=== PATIENT | male | born 1940 ===

== ENCOUNTER 2017-06-20 14:12 | Inpatient (IN) | payer MEDICARE ==
[2017-06-20 14:12] VITALS: BMI 28.3
[2017-06-20 15:11] LABS: BASO # 0.1 K/uL (0.0-0.2); BASO % 0.7 % (0.0-2.0); EOS # 2.5 K/uL (0.0-0.7); EOS % 26.8 % (0.0-4.0); HEMATOCRIT 41.5 % (35.0-51.0); LYMPH # 2.3 K/uL (1.0-4.3); LYMPH % 25.1 % (20.0-40.0); MEAN CELL VOLUME 91.8 fl (80.0-94.0); MEAN CORPUSCULAR HEMOGLOBIN 31.4 pg (27.0-31.0); MEAN CORPUSCULAR HGB CONC 34.3 g/dL (33.0-37.0); MEAN PLATELET VOLUME 9.8 fl (7.2-11.7); MONO # 0.6 K/uL (0.0-0.8); MONO % 6.8 % (0.0-10.0); NEUT # 3.7 K/uL (1.8-7.0); NEUT % 40.6 % (50.0-75.0); PLATELET COUNT 156 K/uL (130-400); RED CELL DISTRIBUTION WIDTH 13.4 % (11.5-14.5); WHITE BLOOD COUNT 9.2 K/uL (4.8-10.8)
[2017-06-20 15:25] LABS: ALB/GLOB RATIO 1.3 (1.0-2.1); ALKALINE PHOSPHATASE 56 U/L (38-126); ALT/SGPT 30 U/L (21-72); AST/SGOT 29 U/L (17-59); BILIRUBIN,TOTAL 0.4 mg/dl (0.2-1.3); BLOOD UREA NITROGEN 19 mg/dl (9-20); CALCIUM 9.5 mg/dL (8.4-10.2); CARBON DIOXIDE 27 mmol/L (22-30); CHLORIDE 105 mmol/L (98-107); GFR AFRICAN-AMERICAN > 60; GLUCOSE,RANDOM 133 mg/dL (75-110); POTASSIUM 3.8 MMOL/L (3.6-5.0); SODIUM 144 mmol/l (132-148); TOTAL PROTEIN 7.4 G/DL (6.3-8.2)
[2017-06-20 16:10] LABS: EOSINOPHIL 25 % (0-7); NEUTROPHIL 37 % (42-75); TOTAL CELLS COUNTED 100
--- NOTE | 2017-06-20 16:27 | ED PDOC ---
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 denies: Nausea, Diaphoresis, Syncope Modifying Factors: None Exacerbating Factors: None Alleviating Factors: None Additional Complaint(s): 76yo male hx CAD s/p stent to RCA march [address] Baer, (primary cardio Dr Fagan) presents c/o dyspnea, chest discomfort, weakness/ dizziness for last 2 days intermittently. Denies cough, fever. Past Medical History Reviewed: Historical Data, Nursing Documentation, Vital Signs Vital Signs: Last Vital Signs Temp 99.0 F 06/20/17 14:20 Pulse 99 H 06/20/17 15:04 Resp 16 06/20/17 14:20 BP 124/81 06/20/17 15:04 Pulse Ox 100 06/20/17 14:20 - Medical History PMH: Arthritis (Osteoarthritis), CAD (s/p stent), Gastritis, HTN, Hypercholesterolemia, Hypothyroidism, TIA Denies: Fractures, Chronic Kidney Disease Comment Only: Mitral Valve Prolapse (REGURGITATION) - Surgical History Surgical History: Denies: Pacemaker Other surgeries: ? abdominal surgery laposcopy many years ago ?appy - Living Arrangements Living Arrangements: With Family - Social History Current smoker - smoking cessation education provided: No Alcohol: Occasional - Home Medications Home Medications: Ambulatory Orders Medication Instructions Recorded Allopurinol [Zyloprim] 1 tab PO DAILY 06/22/16 Aspirin [Ecotrin] 1 tab PO DAILY 06/22/16 Doxazosin [Cardura] 1 tab PO DAILY 06/22/16 Levothyroxine [Synthroid] 1 tab PO DAILY 06/22/16 Losartan [Cozaar] 1 tab PO DAILY 06/22/16 Lovastatin 1 tab PO DAILY 06/22/16 Metformin HCl [Glucophage] 1 tab PO BID 06/22/16 Metoprolol Succinate 1 tab PO BID 06/22/16 [id number]-[id number] Ethyl Esters [OMEGA 3] 2 cap PO BID 06/22/16 Omeprazole 1 cap PO DAILY 06/22/16 Sevelamer [Renagel] 1 tab PO BID 06/22/16 Tamsulosin [Flomax] 1 cap PO DAILY 06/22/16 Vorapaxar Sulfate [Zontivity] 1 tab PO DAILY 06/22/16 Cilostazol [Pletal] 100 mg PO BID 04/13/17 - Allergies Allergies/Adverse Reactions: Allergies Allergy/AdvReac Type Severity Reaction Status Date / Time No Known Allergies Allergy Verified 06/20/17 14:20 Review of Systems ROS Statement: Except As Marked, All Systems Reviewed And Found Negative Constitutional: Positive for: Weakness. Negative for: Fever, Chills, Weight loss ENT: Negative for: Ear Discharge, Throat Pain Cardiovascular: Positive for: Chest Pain. Negative for: Palpitations Respiratory: Positive for: Shortness of Breath, SOB with Exertion. Negative for : Cough, Sputum Gastrointestinal: Negative for: Nausea, Vomiting Genitourinary Male: Negative for: Dysuria, Frequency Musculoskeletal: Negative for: Neck Pain, Shoulder Pain Skin: Negative for: Rash, Lesions, Jaundice Neurological: Positive for: Dizziness. Negative for: Weakness, Numbness Psych: Negative for: Anxiety Physical Exam - Reviewed Nursing Documentation Reviewed: Yes Vital Signs Reviewed: Yes - Physical Exam Appears: Positive for: Well, Non-toxic, No Acute Distress Head Exam: Positive for: ATRAUMATIC, NORMAL INSPECTION, NORMOCEPHALIC Skin: Positive for: Normal Color, Warm, DRY Eye Exam: Positive for: EOMI, Normal appearance, PERRL ENT: Positive for: Normal ENT Inspection Neck: Positive for: Normal, Painless ROM Cardiovascular/Chest: Positive for: Regular Rate, Rhythm Respiratory: Positive for: CNT, Normal Breath Sounds Gastrointestinal/Abdominal: Positive for: Bowel Sounds, Soft. Negative for: Tenderness Back: Positive for: Normal Inspection Extremity: Positive for: Normal ROM Neurologic/Psych: Positive for: Alert, Oriented. 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
[2017-06-20] MEDS ORDERED: Omega-3-Acid Ethyl Esters 1 GM Cap PO SCH (17:30)
--- NOTE | 2017-06-20 17:50 | CP.PCM.HP ---
History of Present Illness - History of Present Illness History of Present Illness: CC: Chest pain This is a 76-year-old male with past medical history of coronary artery disease status post RCA stent in March [address] Baer, also with a history of hypertension, BPH, hyperlipidemia, hypothyroidism, hypertensive heart disease, MVR, osteoarthritis, history of SVT, obesity, who presents to the emergency department this afternoon complaining of dyspnea on exertion, lightheadedness, and moderate chest discomfort. These complaints of been present for the last 2 days, worse today. This chest discomfort is described as a pressure, substernal , nonradiating, not associated with nausea, diaphoresis, or syncope. In the emergency department, the patient's vitals are stable. His blood pressure was initially elevated at 160/100 but improved to 124/81 currently. Laboratory results including CBC, coags, CMP, troponin, are unremarkable on admission. EKG shows ST and T wave abnormalities concerning for anterolateral ischemia. The patients chest pain resolved spontaneously and his shortness of breath has improved. CXR negative per radiologist. Patient is to be placed on observation on the telemetry floor with Dr. Baer on consultation for cardiology. Patient denies fevers, chills, nausea, vomiting, diarrhea, headache. Rest of ROS as below. All of the patient's questions were answered at the bedside. Present on Admission - Present on Admission Any Indicators Present on Admission: No Review of Systems - Hematologic/Lymphatic Additional comments: GENERAL/CONSTITUTIONAL: The patient denies fever, fatigue, weakness, weight gain or weight loss. HEAD, EYES, EARS, NOSE AND THROAT: Eyes - The patient denies pain, redness, loss of vision, double or blurred vision, flashing lights or spots, dryness, Ears, nose, mouth and throat. The patient denies ringing in the ears, loss of hearing, nosebleeds, loss of sense of smell, dry sinuses, sinusitis, post nasal drip, CARDIOVASCULAR: See HPI- denies palpitations RESPIRATORY: Progressively worsening shortness of breath on exertion. The patient denies chronic dry cough, coughing up blood, coughing up mucus, wheezing. GASTROINTESTINAL: The patient denies decreased appetite, nausea, vomiting, vomiting blood or coffee ground material, heartburn, regurgitation, diarrhea, constipation, gas, blood in the stools, black tarry stools. GENITOURINARY: The patient denies difficult urination, pain or burning with urination, blood in the urine, frequency, or urgency MUSCULOSKELETAL: The patient denies arm, buttock, thigh or calf cramps. No joint or muscle pain. No muscle weakness or tenderness. No joint swelling, neck pain, back pain. SKIN: The patient denies easy bruising, skin redness, skin rash, hives, sensitivity to sun exposure, tightness, nodules or bumps, hair loss, color changes in the hands or feet with cold. NEUROLOGIC: The patient denies headache, dizziness, fainting, muscle spasm, loss of consciousness, sensitivity or pain in the hands and feet or memory loss. PSYCHIATRIC: The patient denies anxiety, depression, or thoughts of suicide. ENDOCRINE: The patient denies intolerance to hot or cold temperature, flushing, fingernail changes, increased thirst, increased salt intake or decreased sexual desire. HEMATOLOGIC/LYMPHATIC: The patient denies anemia, bleeding tendency or clotting tendency. ALLERGIC/IMMUNOLOGIC: The patient denies rhinitis, asthma, skin sensitivity, latex allergies or sensitivity. Past Patient History - Past Medical History & Family History Past Medical History?: Yes - Past Social History Alcohol: Occasional - CARDIAC Hx Hypercholesterolemia: Yes Hx Hypertension: Yes Hx Mitral Valve Prolapse: (REGURGITATION) Hx Pacemaker: No - PULMONARY Hx Respiratory Disorders: No - NEUROLOGICAL Hx Transient Ischemic Attacks (TIA): Yes - HEENT Hx HEENT Problems: Yes Hx Cataracts: Yes - RENAL Hx Chronic Kidney Disease: No - ENDOCRINE/METABOLIC Hx Hypothyroidism: Yes - HEMATOLOGICAL/ONCOLOGICAL Hx Blood Transfusions: No - INTEGUMENTARY Hx Dermatological Problems: No - MUSCULOSKELETAL/RHEUMATOLOGICAL Hx Arthritis: Yes (Osteoarthritis) Hx Fractures: No - GASTROINTESTINAL Hx Gastritis: Yes - GENITOURINARY/GYNECOLOGICAL Hx Genitourinary Disorders: Yes Hx Prostate Problems: Yes - PSYCHIATRIC Hx Emotional Abuse: No Hx Physical Abuse: No Hx Substance Use: No - SURGICAL HISTORY Hx Surgeries: Yes Hx Cataract Extraction: Yes Other/Comment: appendicitis?? - ANESTHESIA Hx Anesthesia: Yes Hx Anesthesia Reactions: No Hx Malignant Hyperthermia: No Meds Allergies/Adverse Reactions: Allergies Allergy/AdvReac Type Severity Reaction Status Date / Time No Known Allergies Allergy Verified 06/20/17 14:20 Physical Exam - Additional Findings Additional findings: Physical exam: Constitutional- male in no apparent distress, cooperative, awake, alert. Head- NCAT, PERRL Eye- PERRL, normal accommodation ENT- normal exam, MMM. Neck- normal inspection, supple, no JVD Respiratory- CTAB, no wheezes rales rhonchi Cardiovascular- RRR, +S1, +S2 no MRG GI/Abdominal- normal bowel sounds, soft Skin- warm, dry Extremities Exam- normal capillary refill, normal inspection Neurological Exam- alert, stable gait Psych- normal mood, normal affect Results - Vital Signs Recent Vital Signs: Last Vital Signs Temp 99.0 F 06/20/17 17:42 Pulse 85 06/20/17 17:42 Resp 20 06/20/17 17:42 BP 124/96 H 06/20/17 17:42 Pulse Ox 97 06/20/17 17:42 - Labs Result Diagrams: 06/20/17 15:05 06/20/17 15:05 Labs: Laboratory Results - last 24 hr 06/20/17 06/20/17 15:05 15:05 WBC 9.2 RBC 4.52 Hgb 14.2 Hct 41.5 MCV 91.8 MCH 31.4 H MCHC 34.3 RDW 13.4 Plt Count 156 MPV 9.8 Neut % (Auto) 40.6 L Lymph % (Auto) 25.1 Lucas % (Auto) 6.8 Eos % (Auto) 26.8 H Baso % (Auto) 0.7 Neut # 3.7 Lymph # 2.3 Lucas # 0.6 Eos # 2.5 H Baso # 0.1 Neutrophils % (Manual) 37 L Lymphocytes % (Manual) 30 Monocytes % (Manual) 8 Eosinophils % (Manual) 25 H Platelet Estimate Normal RBC Morphology Normal Sodium 144 Potassium 3.8 Chloride 105 Carbon Dioxide 27 Anion Gap 16 BUN 19 Creatinine 1.3 Est GFR ( Amer) > 60 Est GFR (Non-Af Amer) 54 Random Glucose 133 H Calcium 9.5 Total Bilirubin 0.4 AST 29 ALT 30 Alkaline Phosphatase 56 Troponin I < 0.0120 NT-Pro-B Natriuret Pep 195 Total Protein 7.4 Albumin 4.2 Globulin 3.2 Albumin/Globulin Ratio 1.3 - Impressions Impression: CXR: No active disease EKG: Borderline sinus tachycardia at rate of 100, ST and T wave abnormalities consistent with anterolateral ischemia, no ST elevations Assessment & Plan - Assessment and Plan (Free Text) Plan: This is a 76-year-old male with past medical history of coronary artery disease status post RCA stent in March [address] Baer, also with a history of hypertension, BPH, hyperlipidemia, hypothyroidism, hypertensive heart disease, MVR, osteoarthritis, history of SVT, obesity, who presents to the emergency department this afternoon complaining of dyspnea on exertion, lightheadedness, and moderate chest discomfort, now being put on observation to telemetry floor to r/o ACS and for cardiac workup. ASSESSMENT - Chest pain with recent stent placement in the RCA in 03/2017, r/o restenosis, ACS, as there is ischemic changes on EKG - Hypertension - Hyperlipidemia - Hypothyroidism - Hypertensive heart disease - History of MVR - History of SVT - Osteoarthritis - Obesity PLAN - observation on cardiac telemetry floor - Consultation with Dr. Baer appreciated- patient may need cath to reevaluate stent - Cycle troponins - Continue ASA 81 mg po HS and Plavix 75 mg po daily - Cozaar 50 mg po daily for htn control - Continue Ranitidine 150 mg po daily - Continue Ranolazine 500 mg po q 12 hours with Nitrostat 0.4 mg SL q5m PRN for chest pain - Start Lipitor 40 mg po HS along with [id number] - Continue Flomax 0.4 mg po daily and Doxazosin 4 mg po HS for BPH - Continue Sevelamer 800 mg po daily - Estimated LOS
[2017-06-20 18:11] LABS: CHOLESTEROL 151 mg/dL (0-199)
--- NOTE | 2017-06-20 18:36 | CP.PCM.CON ---
<Asa Lyema - Last Filed: 06/20/17 19:06> History of Present Illness - History of Present Illness History of Present Illness: Consult note for Dr. Keyur Morrissey DO, PGY-1 Reason For Consult: Chest Pain HPI: 76 Greek speaking M w/ pertinent medical history of HTN, HLD, and CAD s/p RCA stent, presents with 2 weeks duration of tight, pressure-like, non-radiating, sternal chest pain of 5/10 severity, which is not made better or worse with any intervention, and which has been constant for the past four days and is associated with sob and dizziness. Patient states that right after his stent placement, he felt much better, but that he started having PINON-like symptoms within one week, which dissipated. His current episode started two weeks ago, and at first was intermittent, then became constant and was associated with sob but no diaphoresis or any other symptoms, which is what brought him to the ER. Upon arrival to the ER, patient's symptoms resolved. Pt does state that he gets dizzy when he takes deep breaths at present, however , pt denies any current f/ch/cp/sob/n/v/d/dysuria/frequency/urgency/hematuria/ hematochezia/hematemesis PSHx: Cataract surgery, s/p RCA Stent PMHx: HTN, BPH, hyperlipidemia, hypothyroidism, MVR, osteoarthritis, SVTs, obesity, CAD All: NKDA SocHx: Social drinker; denies smoking, illicits Hosp: Mar 2017 for RCA Stent placement FamHx: HTN Meds: Allopurinol, Lipitor, Plavix, Doxazosin, Lasix, Ranexa ROS: Constitutional: pt denies fever, chills, generalized weakness ENT: pt denies dysphagia, otalgia, hearing deficit, rhinorrhea Eyes: pt denies sudden loss of vision, diplopia, blurred vision MSK: pt denies muscle stiffness, joint pain, extremity cramping Cardio: +see hpi Pulm: +see hpi GI: pt denies loss of appetite, abdominal pain, constipation, melena, n/v/d : pt denies burning on urination, urinary frequency, hematuria, urinary urgency Neuro: pt denies paresis, paresthesia, dizziness, stiles, numbness, tingling Derm: pt denies skin changes, lesions, nail changes Endo: pt denies intolerance to heat/cold, diaphoresis, night sweats, polydipsia Psych: pt denies anxiety, depression, mood changes Past Patient History - Past Medical History & Family History Past Medical History?: Yes - Past Social History Alcohol: Occasional - CARDIAC Hx Hypercholesterolemia: Yes Hx Hypertension: Yes Hx Mitral Valve Prolapse: (REGURGITATION) Hx Pacemaker: No - PULMONARY Hx Respiratory Disorders: No - NEUROLOGICAL Hx Transient Ischemic Attacks (TIA): Yes - HEENT Hx HEENT Problems: Yes Hx Cataracts: Yes - RENAL Hx Chronic Kidney Disease: No - ENDOCRINE/METABOLIC Hx Hypothyroidism: Yes - HEMATOLOGICAL/ONCOLOGICAL Hx Blood Transfusions: No - INTEGUMENTARY Hx Dermatological Problems: No - MUSCULOSKELETAL/RHEUMATOLOGICAL Hx Arthritis: Yes (Osteoarthritis) Hx Fractures: No - GASTROINTESTINAL Hx Gastritis: Yes - GENITOURINARY/GYNECOLOGICAL Hx Genitourinary Disorders: Yes Hx Prostate Problems: Yes - PSYCHIATRIC Hx Emotional Abuse: No Hx Physical Abuse: No Hx Substance Use: No - SURGICAL HISTORY Hx Surgeries: Yes Hx Cataract Extraction: Yes Other/Comment: appendicitis?? - ANESTHESIA Hx Anesthesia: Yes Hx Anesthesia Reactions: No Hx Malignant Hyperthermia: No Meds Allergies/Adverse Reactions: Allergies Allergy/AdvReac Type Severity Reaction Status Date / Time No Known Allergies Allergy Verified 06/20/17 14:20 - Medications Medications: Current Medications Allopurinol (Zyloprim) 100 mg PO DAILY [facility] Aspirin (Ecotrin) 81 mg PO HS MORE Atorvastatin Calcium (Lipitor) 40 mg PO HS MORE Calcitriol (Rocaltrol) 0.25 mcg PO MWF [facility] Clopidogrel Bisulfate (Plavix) 75 mg PO DAILY MORE Doxazosin Mesylate (Cardura) 4 mg PO HS MORE Famotidine (Pepcid) 20 mg PO BID MORE Furosemide (Lasix) 20 mg PO DAILY [facility] Heparin Sodium (Porcine) (Heparin) 5,000 units SC Q12 MORE PRN Reason: Protocol Home Med (Ranitidine Hcl [Zantac]) 150 mg PO DAILY MORE Home Med (Ranolazine [Ranexa]) 500 mg PO Q12H [facility] Losartan Potassium (Cozaar) 50 mg PO DAILY [facility] Nitroglycerin (Nitrostat Sl Tab) 0.4 mg SL Q5M PRN PRN Reason: Pain, Mild (1-3) [id number] Ethyl Esters (Lovaza) 2 gm PO Q12H MORE Sevelamer HCl (Renagel) 800 mg PO DAILY MORE Tamsulosin HCl (Flomax) 0.4 mg PO DAILY MORE Physical Exam - Additional Findings Additional findings: Phys Exam: VS as below Constitutional: a&o x 4, nad, wolof Head/Neck: neck supple, no jvd, trachea midline, carotid midline, no cervical /head mass Eyes: jayshree, nonicteric sclera, eom intact ENT: auditory acuity grossly intact, throat not congested, no nasal deformity Cardio: rrr, no m/r/g, no carotid bruit, nml s1, s2 Pulm: no accessory muscle use, equal nml breath sounds bilaterally, ctab Abd: s/nt/nd, nbs x 4 q, no palpable masses Derm: no rashes, no ulcers, no lesions Extr: no edema, no cyanosis, no calf tenderness, no lesions, no varicosities Neuro: cn II-XII grossly intact, ue and le 5/5 muscle strength bilaterally, no los ue, le bilaterally and core Results - Vital Signs Recent Vital Signs: Last Vital Signs Temp 99.0 F 06/20/17 17:42 Pulse 85 06/20/17 17:42 Resp 20 06/20/17 17:42 BP 124/96 H 06/20/17 17:42 Pulse Ox 97 06/20/17 17:42 - Labs Result Diagrams: 06/20/17 15:05 06/20/17 15:05 Labs: Laboratory Results - last 24 hr 06/20/17 06/20/17 06/20/17 15:05 15:05 17:56 WBC 9.2 RBC 4.52 Hgb 14.2 Hct 41.5 MCV 91.8 MCH 31.4 H MCHC 34.3 RDW 13.4 Plt Count 156 MPV 9.8 Neut % (Auto) 40.6 L Lymph % (Auto) 25.1 [place] % (Auto) 6.8 Eos % (Auto) 26.8 H Baso % (Auto) 0.7 Neut # 3.7 Lymph # 2.3 [place] # 0.6 Eos # 2.5 H Baso # 0.1 Neutrophils % (Manual) 37 L Lymphocytes % (Manual) 30 Monocytes % (Manual) 8 Eosinophils % (Manual) 25 H Platelet Estimate Normal RBC Morphology Normal Sodium 144 Potassium 3.8 Chloride 105 Carbon Dioxide 27 Anion Gap 16 BUN 19 Creatinine 1.3 Est GFR ( Amer) > 60 Est GFR (Non-Af Amer) 54 Random Glucose 133 H Calcium 9.5 Total Bilirubin 0.4 AST 29 ALT 30 Alkaline Phosphatase 56 Troponin I < 0.0120 NT-Pro-B Natriuret Pep 195 Total Protein 7.4 Albumin 4.2 Globulin 3.2 Albumin/Globulin Ratio 1.3 Triglycerides 232 H D Cholesterol 151 LDL Cholesterol Direct 78 HDL Cholesterol 28 L Assessment & Plan - Assessment and Plan (Free Text) Assessment: A/P 76 M with significant cardiac hx including s/p RCA stent Mar 2017 p/w CP and associated SOB and dizziness. Symptoms currently resolved, tropes X 1 negative , but initial EKG showed ischemia in V1-V3. Acute Coronary Syndrome - Heparin drip - No nitro drip 2/2 blood pressure (124/96) - NPO After Midnight - Patient will be taken to [facility] with Dr. Baer Chronic Medical Issues - As per primary team Thank you for this interesting consult Asa Flowers DO, PGY-1, d/w Dr. Baer <Aaron Baer - Last Filed: 06/21/17 15:41> Meds - Medications Medications: Current Medications Allopurinol (Zyloprim) 100 mg PO DAILY [facility] Last Admin: 06/21/17 09:36 Dose: Not Given Aspirin (Ecotrin) 81 mg PO [facility] Last Admin: 06/20/17 22:15 Dose: 81 mg Atorvastatin Calcium (Lipitor) 40 mg PO [facility] Last Admin: 06/20/17 22:29 Dose: 40 mg Calcitriol (Rocaltrol) 0.25 mcg PO [facility] [place] Clopidogrel Bisulfate (Plavix) 75 mg PO DAILY [facility] Last Admin: 06/21/17 10:03 Dose: 75 mg Doxazosin Mesylate (Cardura) 4 mg PO [facility] Last Admin: 06/20/17 23:55 Dose: 4 mg Famotidine (Pepcid) 20 mg PO BID [facility] Last Admin: 06/21/17 09:35 Dose: Not Given Furosemide (Lasix) 20 mg PO DAILY [facility] Last Admin: 06/21/17 09:35 Dose: Not Given Home Med (Ranitidine Hcl [Zantac]) 150 mg PO DAILY [facility] Home Med (Ranolazine [Ranexa]) 500 mg PO Q12H [facility] Last Admin: 06/21/17 09:36 Dose: Not Given Heparin Sodium/Sodium Chloride (Heparin 48354 Units/250ml 1/2 Normal Saline) 25 ,000 units in 250 mls @ 10.417 mls/hr IV .Q24H MORE PRN Reason: Protocol Last Titration: 06/21/17 06:39 Dose: 7.4 mls/hr Losartan Potassium (Cozaar) 50 mg PO DAILY [facility] Last Admin: 06/21/17 09:34 Dose: Not Given Nitroglycerin (Nitrostat Sl Tab) 0.4 mg SL Q5M PRN PRN Reason: Pain, Mild (1-3) Last Admin: 06/20/17 22:37 Dose: 0.4 mg Xpvxh-[id number] Ethyl Esters (Lovaza) 2 gm PO Q12 [facility] Last Admin: 06/21/17 09:35 Dose: Not Given Sevelamer HCl (Renagel) 800 mg PO DAILY [facility] Last Admin: 06/21/17 09:36 Dose: Not Given Tamsulosin HCl (Flomax) 0.4 mg PO DAILY [facility] Last Admin: 06/21/17 09:35 Dose: Not Given Results - Vital Signs Recent Vital Signs: Last Vital Signs Temp 97.7 F 06/21/17 13:00 Pulse 69 06/21/17 13:00 Resp 18 06/21/17 13:00 BP 139/90 06/21/17 13:00 Pulse Ox 98 06/21/17 13:00 - Labs Result Diagrams: 06/20/17 15:05 06/20/17 15:05 Labs: Laboratory Results - last 24 hr 06/20/17 06/20/17 06/20/17 15:05 15:05 17:56 Neutrophils % (Manual) 37 L Lymphocytes % (Manual) 30 Monocytes % (Manual) 8 Eosinophils % (Manual) 25 H Platelet Estimate Normal RBC Morphology Normal PT INR APTT POC Glucose (mg/dL) Troponin I < 0.0120 NT-Pro-B Natriuret Pep 195 Triglycerides 232 H D Cholesterol 151 LDL Cholesterol Direct 78 HDL Cholesterol 28 L 06/20/17 06/20/17 06/21/17 21:12 22:32 00:22 Neutrophils % (Manual) Lymphocytes % (Manual) Monocytes % (Manual) Eosinophils % (Manual) Platelet Estimate RBC Morphology PT 11.1 INR 1.0 APTT 34.3 POC Glucose (mg/dL) 107 Troponin I < 0.0120 NT-Pro-B Natriuret Pep Triglycerides Cholesterol LDL Cholesterol Direct HDL Cholesterol 06/21/17 06/21/17 06/21/17 04:15 04:47 10:45 Neutrophils % (Manual) Lymphocytes % (Manual) Monocytes % (Manual) Eosinophils % (Manual) Platelet Estimate RBC Morphology PT 11.8 INR 1.0 APTT 155.9 H* D 80.1 H D POC Glucose (mg/dL) 84 Troponin I NT-Pro-B Natriuret Pep Triglycerides Cholesterol LDL Cholesterol Direct HDL Cholesterol 06/21/17 11:13 Neutrophils % (Manual) Lymphocytes % (Manual) Monocytes % (Manual) Eosinophils % (Manual) Platelet Estimate RBC Morphology PT INR APTT POC Glucose (mg/dL) 94 Troponin I NT-Pro-B Natriuret Pep Triglycerides Cholesterol LDL Cholesterol Direct HDL Cholesterol Attending/Attestation - Attestation I have personally seen and examined this patient.: Yes I have fully participated in the care of the patient.: Yes I have reviewed all pertinent clinical information: Yes Notes (Text): 06/21/17 15:41 76 year old male with hx of HTN, DM, hyperlipidemia presenting with c/o cp and SOB x 2 weeks sx and EKG c/w ischemic heart disease keep pt on IV heparin plan for LHCx cont GDMT for CAD
[2017-06-20] MEDS ORDERED: Heparin25000 units/250ml 1/2NS 25,000 UNITS/250 ML BAG IV SCH (19:30)
[2017-06-20 21:23] LABS: PARTIAL THROMBOPLASTIN TIME 34.3 Seconds (25.6-37.1)
[2017-06-21 05:04] LABS: PARTIAL THROMBOPLASTIN TIME 155.9 Seconds (25.6-37.1)
[2017-06-21] MEDS ORDERED: Influenza Vaccine 18yr & older 0.5 ML/45 MCG SYR IM ONE (06:00)
--- NOTE | 2017-06-21 06:23 | CP.PCM.PN ---
Subjective - Date & Time of Evaluation Date of Evaluation: 06/21/17 Time of Evaluation: 06:21 - Subjective Subjective: Pt s/e bedside. States he is doing well, no sob, no cp. He did however have one bout of CP last night before bed, he took 1 SL nitroglycerine and CP resolved. No other complaints at this time - no f/ch/cp/sob/n/v/d. Objective - Vital Signs/Intake and Output Vital Signs (last 24 hours): Temp Pulse Resp BP Pulse Ox 97.6 F 64 20 143/88 95 06/21/17 05:49 06/21/17 05:49 06/21/17 05:49 06/21/17 05:49 06/21/17 05:49 - Medications Medications: Current Medications Allopurinol (Zyloprim) 100 mg PO DAILY [facility] Aspirin (Ecotrin) 81 mg PO HS [facility]CLUD[facility] Last Admin: 06/20/17 22:15 Dose: 81 mg Atorvastatin Calcium (Lipitor) 40 mg PO HS [facility] Last Admin: 06/20/17 22:29 Dose: 40 mg Calcitriol (Rocaltrol) 0.25 mcg PO MWF COUNT [facility]CLUD[facility] Clopidogrel Bisulfate (Plavix) 75 mg PO DAILY MORE Doxazosin Mesylate (Cardura) 4 mg PO HS [facility] Last Admin: 06/20/17 23:55 Dose: 4 mg Famotidine (Pepcid) 20 mg PO BID MORE Furosemide (Lasix) 20 mg PO DAILY COUNT [facility]CLUD[facility] Home Med (Ranitidine Hcl [Zantac]) 150 mg PO DAILY COUNT [facility]CLUD[facility] Home Med (Ranolazine [Ranexa]) 500 mg PO Q12H COUNT [facility] Last Admin: 06/20/17 22:28 Dose: 500 mg Heparin Sodium/Sodium Chloride (Heparin 18432 Units/250ml 1/2 Normal Saline) 25 ,000 units in 250 mls @ 10.417 mls/hr IV .Q24H MORE PRN Reason: Protocol Last Admin: 06/20/17 21:58 Dose: 10.4 mls/hr Losartan Potassium (Cozaar) 50 mg PO DAILY [facility] Nitroglycerin (Nitrostat Sl Tab) 0.4 mg SL Q5M PRN PRN Reason: Pain, Mild (1-3) Last Admin: 06/20/17 22:37 Dose: 0.4 mg Bzftk-6-Pgqy Ethyl Esters (Lovaza) 2 gm PO Q12 MORE Sevelamer HCl (Renagel) 800 mg PO DAILY MORE Tamsulosin HCl (Flomax) 0.4 mg PO DAILY MORE - Labs Labs: 06/20/17 15:05 06/20/17 15:05 PT 11.8 Seconds (9.8-13.1) 06/21/17 04:15 INR 1.0 (0.9-1.2) 06/21/17 04:15 APTT 155.9 Seconds (25.6-37.1) H* D 06/21/17 04:15 - Additional Findings Additional findings: Phys Exam: VS as below Constitutional: a&o x 4, nad, [place] Head/Neck: neck supple, no jvd, trachea midline, carotid midline, no cervical /head mass Eyes: jayshree, nonicteric sclera, eom intact ENT: auditory acuity grossly intact, throat not congested, no nasal deformity Cardio: rrr, no m/r/g, no carotid bruit, nml s1, s2 Pulm: no accessory muscle use, equal nml breath sounds bilaterally, ctab Abd: s/nt/nd, nbs x 4 q, no palpable masses Derm: no rashes, no ulcers, no lesions Extr: no edema, no cyanosis, no calf tenderness, no lesions, no varicosities Neuro: cn II-XII grossly intact, ue and le 5/5 muscle strength bilaterally, no los ue, le bilaterally and core Assessment and Plan - Assessment and Plan (Free Text) Assessment: A/P 76 M with significant cardiac hx including s/p RCA stent Mar 2017 p/w CP and associated SOB and dizziness. Symptoms currently resolved, tropes X 2 negative , but initial EKG showed ischemia in V1-V3. Acute Coronary Syndrome - Heparin drip: aPTT was elevated this AM, so per protocol, rate decreased to 7.4 - No nitro drip 2/2 blood pressure (124/96) - NPO After Midnight - Patient will be taken to [facility], [place] today with Dr. Baer - SL nitroglycerine for CP Chronic Medical Issues - As per primary team Thank you for this interesting consult Asa SDO, PGY-1, d/w Dr. Baer
--- NOTE | 2017-06-21 08:14 | CARD ---
APPROVED REPORT EKG Measurement Heart [id number] <Conclusion> Sinus rhythm with fusion complexes ST & T wave abnormality, consider anterolateral ischemia Prolonged QT Abnormal ECG
[2017-06-21] MEDS: Omega-3-Acid Ethyl Esters 1 GM Cap PO SCH ×2 (09:35→21:18)
--- NOTE | 2017-06-21 10:59 | CP.PCM.PN ---
Subjective - Date & Time of Evaluation Date of Evaluation: 06/21/17 Time of Evaluation: 10:45 - Subjective Subjective: Patient seen and examined bedside. Feeling well. Denies any chest pain or SOB. With episode of chest pain last night while lying in bed that resolved with Nitro SL. Hemodynamically stable, afebrile. Trop negative so far Patient to go for cardiac cath to [facility] today Objective - Vital Signs/Intake and Output Vital Signs (last 24 hours): Temp Pulse Resp BP Pulse Ox 97.3 F L 61 18 124/81 95 06/21/17 09:00 06/21/17 09:34 06/21/17 09:00 06/21/17 09:35 06/21/17 09:00 Intake and Output: 06/21/17 06/21/17 06:59 18:59 Intake Total 0 Balance 0 - Medications Medications: Current Medications Allopurinol (Zyloprim) 100 mg PO DAILY [facility] Last Admin: 06/21/17 09:36 Dose: Not Given Aspirin (Ecotrin) 81 mg PO [facility] Last Admin: 06/20/17 22:15 Dose: 81 mg Atorvastatin Calcium (Lipitor) 40 mg PO HS [facility] Last Admin: 06/20/17 22:29 Dose: 40 mg Calcitriol (Rocaltrol) 0.25 mcg PO [facility] Clopidogrel Bisulfate (Plavix) 75 mg PO DAILY [facility] Last Admin: 06/21/17 10:03 Dose: 75 mg Doxazosin Mesylate (Cardura) 4 mg PO [facility] Last Admin: 06/20/17 23:55 Dose: 4 mg Famotidine (Pepcid) 20 mg PO BID [facility] Last Admin: 06/21/17 09:35 Dose: Not Given Furosemide (Lasix) 20 mg PO DAILY [facility] Last Admin: 06/21/17 09:35 Dose: Not Given Home Med (Ranitidine Hcl [Zantac]) 150 mg PO DAILY [facility] Home Med (Ranolazine [Ranexa]) 500 mg PO Q12H [facility] Last Admin: 06/21/17 09:36 Dose: Not Given Heparin Sodium/Sodium Chloride (Heparin 26104 Units/250ml 1/2 Normal Saline) 25 ,000 units in 250 mls @ 10.417 mls/hr IV .Q24H [facility] PRN Reason: Protocol Last Titration: 06/21/17 06:39 Dose: 7.4 mls/hr Losartan Potassium (Cozaar) 50 mg PO DAILY [facility] Last Admin: 06/21/17 09:34 Dose: Not Given Nitroglycerin (Nitrostat Sl Tab) 0.4 mg SL Q5M PRN PRN Reason: Pain, Mild (1-3) Last Admin: 06/20/17 22:37 Dose: 0.4 mg Gdiyc-8-Pykj Ethyl Esters (Lovaza) 2 gm PO Q12 [facility] Last Admin: 06/21/17 09:35 Dose: Not Given Sevelamer HCl (Renagel) 800 mg PO DAILY [facility] Last Admin: 06/21/17 09:36 Dose: Not Given Tamsulosin HCl (Flomax) 0.4 mg PO DAILY [facility] Last Admin: 06/21/17 09:35 Dose: Not Given - Labs Labs: 06/20/17 15:05 06/20/17 15:05 PT 11.8 Seconds (9.8-13.1) 06/21/17 04:15 INR 1.0 (0.9-1.2) 06/21/17 04:15 APTT 155.9 Seconds (25.6-37.1) H* D 06/21/17 04:15 - Constitutional Appears: Non-toxic, No Acute Distress - Head Exam Head Exam: ATRAUMATIC, NORMAL INSPECTION, NORMOCEPHALIC - Eye Exam Eye Exam: EOMI, Normal appearance, PERRL Pupil Exam: NORMAL ACCOMODATION - ENT Exam ENT Exam: Mucous Membranes Moist, Normal Exam - Neck Exam Neck Exam: Full ROM, Normal Inspection - Respiratory Exam Respiratory Exam: Clear to Ausculation Bilateral, NORMAL BREATHING PATTERN. absent: Rales, Rhonchi, Wheezes - Cardiovascular Exam Cardiovascular Exam: REGULAR RHYTHM, RRR, +S1, +S2. absent: JVD - GI/Abdominal Exam GI & Abdominal Exam: Soft, Normal Bowel Sounds. absent: Distended, Guarding, Tenderness, Rebound - Rectal Exam Rectal Exam: Deferred - Extremities Exam Extremities Exam: Full ROM, Normal Capillary Refill, Normal Inspection. absent : Calf Tenderness, Pedal Edema - Back Exam Back Exam: NORMAL INSPECTION - Neurological Exam Neurological Exam: Alert, Awake, CN II-XII Intact, Oriented x3 - Psychiatric Exam Psychiatric exam: Normal Affect, Normal Mood - Skin Skin Exam: Dry, Intact, Normal Color, Warm Assessment and Plan - Assessment and Plan (Free Text) Assessment: 76-year-old male with past medical history of coronary artery disease status post RCA stent in March [address] Baer, also with a history of hypertension, BPH, hyperlipidemia, hypothyroidism, hypertensive heart disease, MVR, osteoarthritis, history of SVT, obesity, presented to the emergency department complaining of dyspnea on exertion, lightheadedness, and moderate chest discomfort. He was placed under observation in Telemetry for Chest pain r/ o ACS and cardiology was consulted. Patient to be transferred for cardiac cath today to [facility] 1. Chest pain with recent stent placement in the RCA in 03/2017 r/o restenosis, ACS, as there is ischemic changes on EKG Trop negative x [address] Baer. Patient to go for cardiac cath today Continue Statin ,ASa, plavix, ACEI , Heparin drip 2. HTN Controlled on Losartan 3.Hypertensive heart disease 4.History of MVR 5. History of SVT 6. Gout -on allopurinol 7. Osteoarthritis 8. Obesity 9. Hypothyroidism- not on treatment ? 10. Dyslipidemia- on Statin 11. DVt prophylaxis- on Heparin drip
[2017-06-22 06:14] LABS: HEMATOCRIT 40.9 % (35.0-51.0); MEAN CELL VOLUME 92.9 fl (80.0-94.0); MEAN CORPUSCULAR HEMOGLOBIN 31.3 pg (27.0-31.0); MEAN CORPUSCULAR HGB CONC 33.7 g/dL (33.0-37.0); RED CELL DISTRIBUTION WIDTH 13.4 % (11.5-14.5); WHITE BLOOD COUNT 8.3 K/uL (4.8-10.8)
[2017-06-22 06:57] LABS: BLOOD UREA NITROGEN 15 mg/dl (9-20); CALCIUM 8.8 mg/dL (8.4-10.2); CARBON DIOXIDE 26 mmol/L (22-30); CHLORIDE 104 mmol/L (98-107); GFR AFRICAN-AMERICAN > 60; GLUCOSE,RANDOM 93 mg/dL (75-110); POTASSIUM 3.5 MMOL/L (3.6-5.0); SODIUM 141 mmol/l (132-148)
--- NOTE | 2017-06-22 08:12 | CP.PCM.PN ---
Subjective - Date & Time of Evaluation Date of Evaluation: 06/22/17 Time of Evaluation: 08:08 - Subjective Subjective: Cardiology progress note for Dr. Keyur Morrissey, DO, PGY -1 Pt s/e bedside. States he is doing well, no sob, no cp. No bouts of CP since two days ago. No other complaints at this time - no f/ch/cp/sob/n/v/d. Objective - Vital Signs/Intake and Output Vital Signs (last 24 hours): Temp Pulse Resp BP Pulse Ox 98.3 F 75 20 121/77 95 06/22/17 05:37 06/22/17 05:37 06/22/17 05:37 06/22/17 05:37 06/22/17 05:37 - Medications Medications: Current Medications Acetaminophen (Tylenol 325mg Tab) 650 mg PO Q4 PRN PRN Reason: Headache Last Admin: 06/21/17 23:02 Dose: 650 mg Allopurinol (Zyloprim) 100 mg PO DAILY [facility] Last Admin: 06/21/17 09:36 Dose: Not Given Aspirin (Ecotrin) 81 mg PO HS [facility] Last Admin: 06/21/17 21:18 Dose: 81 mg Atorvastatin Calcium (Lipitor) 40 mg PO HS [facility] Last Admin: 06/21/17 21:18 Dose: 40 mg Calcitriol (Rocaltrol) 0.25 mcg PO MWF [facility] Clopidogrel Bisulfate (Plavix) 75 mg PO DAILY [facility] Last Admin: 06/21/17 10:03 Dose: 75 mg Doxazosin Mesylate (Cardura) 4 mg PO HS [facility] Last Admin: 06/21/17 21:18 Dose: 4 mg Famotidine (Pepcid) 20 mg PO BID [facility] Last Admin: 06/21/17 21:18 Dose: 20 mg Furosemide (Lasix) 20 mg PO DAILY [facility] Last Admin: 06/21/17 09:35 Dose: Not Given Home Med (Ranitidine Hcl [Zantac]) 150 mg PO DAILY [facility] Home Med (Ranolazine [Ranexa]) 500 mg PO Q12H [facility] Last Admin: 06/21/17 21:19 Dose: 500 mg Losartan Potassium (Cozaar) 50 mg PO DAILY [facility] Last Admin: 06/21/17 09:34 Dose: Not Given Nitroglycerin (Nitrostat Sl Tab) 0.4 mg SL Q5M PRN PRN Reason: Pain, Mild (1-3) Last Admin: 06/20/17 22:37 Dose: 0.4 mg Apwaq-3-Keku Ethyl Esters (Lovaza) 2 gm PO Q12 [facility] Last Admin: 06/21/17 21:18 Dose: 2 gm Sevelamer HCl (Renagel) 800 mg PO DAILY [facility] Last Admin: 06/21/17 09:36 Dose: Not Given Tamsulosin HCl (Flomax) 0.4 mg PO DAILY [facility] Last Admin: 06/21/17 09:35 Dose: Not Given - Labs Labs: 06/22/17 04:30 06/22/17 04:30 PT 11.8 Seconds (9.8-13.1) 06/21/17 04:15 INR 1.0 (0.9-1.2) 06/21/17 04:15 APTT 80.1 Seconds (25.6-37.1) H D 06/21/17 10:45 - Additional Findings Additional findings: Phys Exam: VS as below Constitutional: a&o x 4, nad, [place]ar[place] Head/Neck: neck supple, no jvd, trachea midline, carotid midline, no cervical /head mass Eyes: jayshree, nonicteric sclera, eom intact ENT: auditory acuity grossly intact, throat not congested, no nasal deformity Cardio: rrr, no m/r/g, no carotid bruit, nml s1, s2 Pulm: no accessory muscle use, equal nml breath sounds bilaterally, ctab Abd: s/nt/nd, nbs x 4 q, no palpable masses Derm: no rashes, no ulcers, no lesions Extr: no edema, no cyanosis, no calf tenderness, no lesions, no varicosities Neuro: cn II-XII grossly intact, ue and le 5/5 muscle strength bilaterally, no los ue, le bilaterally and core Assessment and Plan - Assessment and Plan (Free Text) Assessment: A/P 76 M with significant cardiac hx including s/p RCA stent Mar 2017 p/w CP and associated SOB and dizziness. Symptoms currently resolved, tropes X 2 negative , but initial EKG showed ischemia in V1-V3. Acute Coronary Syndrome - Unstable Angina - Cath findings: - At this time, no acute intervention is needed - Pt should start a high dose statin, Lipitor 40 - not in his home medications Chronic Medical Issues - As per primary team Thank you for this interesting consult. At this time, patient is clear for discharge from a cardiac standpoint. Asa Flowers DO, PGY-1, d/w Dr. Baer
[2017-06-22] MEDS: Omega-3-Acid Ethyl Esters 1 GM Cap PO SCH (09:27)
--- NOTE | 2017-06-22 11:20 | CP.PCM.DIS ---
Provider - Provider Date of Admission: 06/21/17 20:03 Attending physician: Gregorio Hayes DO Primary care physician: Dr. Dougherty Consults: cardiology consult Dr. Baer Time Spent in preparation of Discharge (in minutes): 15 Hospital Course - Lab Results Lab Results: Most Recent Lab Values WBC 8.3 K/uL (4.8-10.8) 06/22/17 04:30 RBC 4.40 Mil/uL (4.40-5.90) 06/22/17 04:30 Hgb 13.8 g/dL (12.0-18.0) 06/22/17 04:30 Hct 40.9 % (35.0-51.0) 06/22/17 04:30 MCV 92.9 fl (80.0-94.0) 06/22/17 04:30 MCH 31.3 pg (27.0-31.0) H 06/22/17 04:30 MCHC 33.7 g/dL (33.0-37.0) 06/22/17 04:30 RDW 13.4 % (11.5-14.5) 06/22/17 04:30 Plt Count 155 K/uL (130-400) 06/22/17 04:30 MPV 9.8 fl (7.2-11.7) 06/20/17 15:05 Neut % (Auto) 40.6 % (50.0-75.0) L 06/20/17 15:05 Lymph % (Auto) 25.1 % (20.0-40.0) 06/20/17 15:05 [place] % (Auto) 6.8 % (0.0-10.0) 06/20/17 15:05 Eos % (Auto) 26.8 % (0.0-4.0) H 06/20/17 15:05 Baso % (Auto) 0.7 % (0.0-2.0) 06/20/17 15:05 Neut # 3.7 K/uL (1.8-7.0) 06/20/17 15:05 Lymph # 2.3 K/uL (1.0-4.3) 06/20/17 15:05 [place]ane # 0.6 K/uL (0.0-0.8) 06/20/17 15:05 Eos # 2.5 K/uL (0.0-0.7) H 06/20/17 15:05 Baso # 0.1 K/uL (0.0-0.2) 06/20/17 15:05 Neutrophils % (Manual) 37 % (42-75) L 06/20/17 15:05 Lymphocytes % (Manual) 30 % (20-50) 06/20/17 15:05 Monocytes % (Manual) 8 % (0-10) 06/20/17 15:05 Eosinophils % (Manual) 25 % (0-7) H 06/20/17 15:05 Platelet Estimate Normal (NORMAL) 06/20/17 15:05 RBC Morphology Normal (NORMAL) 06/20/17 15:05 PT 11.8 Seconds (9.8-13.1) 06/21/17 04:15 INR 1.0 (0.9-1.2) 06/21/17 04:15 APTT 80.1 Seconds (25.6-37.1) H D 06/21/17 10:45 Sodium 141 mmol/l (132-148) 06/22/17 04:30 Potassium 3.5 MMOL/L (3.6-5.0) L 06/22/17 04:30 Chloride 104 mmol/L (98-107) 06/22/17 04:30 Carbon Dioxide 26 mmol/L (22-30) 06/22/17 04:30 Anion Gap 15 (10-20) 06/22/17 04:30 BUN 15 mg/dl (9-20) 06/22/17 04:30 Creatinine 1.1 mg/dL (0.8-1.5) 06/22/17 04:30 Est GFR ( Amer) > 60 06/22/17 04:30 Est GFR (Non-Af Amer) > 60 06/22/17 04:30 POC Glucose (mg/dL) 89 mg/dL (65-110) 06/22/17 04:42 Random Glucose 93 mg/dL (75-110) 06/22/17 04:30 Calcium 8.8 mg/dL (8.4-10.2) 06/22/17 04:30 Total Bilirubin 0.4 mg/dl (0.2-1.3) 06/20/17 15:05 AST 29 U/L (17-59) 06/20/17 15:05 ALT 30 U/L (21-72) 06/20/17 15:05 Alkaline Phosphatase 56 U/L (38-126) 06/20/17 15:05 Troponin I 0.0130 ng/mL (0.00-0.120) 06/22/17 04:30 NT-Pro-B Natriuret Pep 195 pg/ml (0-900) 06/20/17 15:05 Total Protein 7.4 G/DL (6.3-8.2) 06/20/17 15:05 Albumin 4.2 g/dL (3.5-5.0) 06/20/17 15:05 Globulin 3.2 gm/dL (2.2-3.9) 06/20/17 15:05 Albumin/Globulin Ratio 1.3 (1.0-2.1) 06/20/17 15:05 Triglycerides 232 mg/DL (0-149) H D 06/20/17 17:56 Cholesterol 151 mg/dL (0-199) 06/20/17 17:56 LDL Cholesterol Direct 78 mg/dL (0-129) 06/20/17 17:56 HDL Cholesterol 28 MG/DL (30-70) L 06/20/17 17:56 - Hospital Course Hospital Course: 76-year-old male with past medical history of coronary artery disease status post RCA stent in March [address] Baer, also with a history of hypertension, BPH, hyperlipidemia, hypothyroidism, hypertensive heart disease, MVR, osteoarthritis, history of SVT, obesity, presented to the emergency department complaining of dyspnea on exertion, lightheadedness, and moderate chest discomfort. He was placed under observation in Telemetry for Chest pain r/ o ACS and cardiology was consulted. Patient transferred for cardiac cath to [facility] that showed no in stent thrombosis or new obstruction . Patient remained hemodynamically stable, afebrile,chest pain resolved .cleared by cardiology for discharge on current home meds ASa,plavix, ACEI , BB and start statin 1. Chest pain with recent stent placement in the RCA in 03/2017 Most likely patient has angina secondary to CAD angiogram showed no in stent stenosis or new blockage Trop negative x [address] Baer. Continue Statin ,ASa, plavix, ACEI , ranexa 2. HTN Controlled on Losartan , cardura 3.Hypertensive heart disease 4.History of MVR 5. History of SVT 6. Gout -on allopurinol 7. Osteoarthritis 8. Obesity 9. Hypothyroidism- not on treatment . follow up with PMD 10. Dyslipidemia- strated Statin 11. DVt prophylaxis- on Heparin drip Discharge Exam - Head Exam Head Exam: ATRAUMATIC, NORMAL INSPECTION, NORMOCEPHALIC - Eye Exam Eye Exam: EOMI, Normal appearance, PERRL Pupil Exam: NORMAL ACCOMODATION - ENT Exam ENT Exam: Mucous Membranes Moist, Normal Exam - Neck Exam Neck exam: Full Rom, Normal Inspection - Respiratory Exam Respiratory Exam: Clear to PA & Lateral, NORMAL BREATHING PATTERN. absent: Rales, Rhonchi, Wheezes - Cardiovascular Exam Cardiovascular Exam: REGULAR RHYTHM, RRR, +S1, +S2. absent: JVD - GI/Abdominal Exam GI & Abdominal Exam: Normal Bowel Sounds, Soft. absent: Distended, Guarding, Rebound, Tenderness - Rectal Exam Rectal Exam: Deferred - Extremities Exam Extremities exam: normal capillary refill, normal inspection, pedal pulses present - Back Exam Back exam: NORMAL INSPECTION - Neurological Exam Neurological exam: Alert, CN II-XII Intact, Oriented x3, Reflexes Normal - Psychiatric Exam Psychiatric exam: Normal Affect, Normal Mood - Skin Skin Exam: Dry, Intact, Normal Color, Warm Discharge Plan - Discharge Medications Prescriptions: Atorvastatin [Lipitor] 40 mg PO DAILY #30 tab - Follow Up Plan Condition: STABLE Disposition: HOME/ ROUTINE Patient education suggested?: Yes Instructions: Acute Coronary Syndrome (DC) Additional Instructions: Activity as tolerated, Follow-up with Primary Doctor and Dr Baer to call for appointment.Heart healthy, low fat, low cholesterol with moderate carbohydrate diet. Referrals: Aaron Baer MD [Staff Provider] -
[2017-06-22 12:22] VITALS: BP 131/91; PULSE 69; RESP 19; TEMP 97.9; O2SAT 94
== END 2017-06-22 13:00 | disposition home health service (06) | DRG 303 ==
LOC: H.ER 14:12 → H.ERHOLD 16:37 → H.TEL 19:00 → OBSVTOIN 06-21 20:03
PROVIDERS: ADMIT Internal Medicine; ATTEND Internal Medicine
PROC: 3E0234Z Introduction of Serum, Toxoid and Vaccine into Muscle, Percutaneous Approach (ICD-10-PCS; principal; 2017-06-21)
DX: I25.110 Atherosclerotic heart disease of native coronary artery with unstable angina pectoris (principal); I11.9 Hypertensive heart disease without heart failure; I24.9 Acute ischemic heart disease, unspecified; E11.9 Type 2 diabetes mellitus without complications; E78.5 Hyperlipidemia, unspecified; I34.1 Nonrheumatic mitral (valve) prolapse; E03.9 Hypothyroidism, unspecified; M10.9 Gout, unspecified; E66.9 Obesity, unspecified; M19.90 Unspecified osteoarthritis, unspecified site; N40.0 Benign prostatic hyperplasia without lower urinary tract symptoms; Z86.73 Personal history of transient ischemic attack (TIA), and cerebral infarction without residual deficits; Z95.2 Presence of prosthetic heart valve; Z95.5 Presence of coronary angioplasty implant and graft; Z23 Encounter for immunization; Z79.82 Long term (current) use of aspirin

== ENCOUNTER 2017-07-12 02:25 | Emergency (ER) | payer MEDICARE ==
[2017-07-12 02:26] VITALS: BMI 28.3
[2017-07-12 02:49] VITALS: TEMP 99; O2SAT 99
--- NOTE | 2017-07-12 03:09 | ED PDOC ---
HPI: Hypertension/Hypotension Time Seen by Provider: 07/12/17 02:38 Chief Complaint (Nursing): High Blood Pressure Chief Complaint (Provider): High Blood Pressure History Per: Patient History/Exam Limitations: no limitations Onset/Duration Of Symptoms: Hrs Current Symptoms Are (Timing): Gone Now Associated Symptoms: Headache Exacerbating Factor(s): Pos: Increased Salt/Salty Foods Additional Complaint(s): Long is a 76 y/o male with a history of high blood pressure who presents to the ED after experiencing high blood pressure. He states he was watching a football game and eating 3 slices of pizza when he got nervous about his blood pressure, so he checked it. Patient states his systolic was 220, he felt nervous and a slight pressure in the back of his head, so he took an extra dose of his blood pressure medication and came to the ER. By the time he arrived his symptoms had resolved. He denies chest pain, shortness of breath, or headache. PMD: Oscar Fagan Past Medical History Reviewed: Historical Data, Nursing Documentation, Vital Signs Vital Signs: Last Vital Signs Temp 99.0 F 07/12/17 02:46 Pulse 86 07/12/17 02:46 Resp 16 07/12/17 02:46 BP 160/102 H 07/12/17 02:46 Pulse Ox 99 07/12/17 02:46 - Medical History PMH: Arthritis (Osteoarthritis), CAD (s/p stent), Gastritis, HTN, Hypercholesterolemia, Hypothyroidism, TIA Denies: Fractures, Chronic Kidney Disease Comment Only: Mitral Valve Prolapse (REGURGITATION) - Surgical History Surgical History: Denies: Pacemaker - Family History Family History: States: Unknown Family Hx - Home Medications Home Medications: Ambulatory Orders Medication Instructions Recorded Allopurinol [Zyloprim] 100 mg PO DAILY 06/20/17 Aspirin [Ecotrin] 81 mg PO HS 06/20/17 Calcitriol [Calcitriol] 0.25 mcg PO MWF 06/20/17 Clopidogrel [Plavix] 75 mg PO DAILY 06/20/17 Doxazosin [Cardura] 4 mg PO HS 06/20/17 Furosemide [Lasix] 20 mg PO DAILY 06/20/17 Losartan [Cozaar] 50 mg PO DAILY 06/20/17 Lkied-1-Mjzj Ethyl Esters 1 GM 2 gm PO Q12H 06/20/17 [Lovaza] Ranitidine HCl [Zantac] 150 mg PO DAILY 06/20/17 Ranolazine [Ranexa] 500 mg PO Q12H 06/20/17 Sevelamer [Renagel] 800 mg PO DAILY 06/20/17 Tamsulosin [Flomax] 0.4 mg PO DAILY 06/20/17 Atorvastatin [Lipitor] 40 mg PO DAILY #30 tab 06/22/17 - Allergies Allergies/Adverse Reactions: Allergies Allergy/AdvReac Type Severity Reaction Status Date / Time No Known Allergies Allergy Verified 06/20/17 14:20 Review of Systems ROS Statement: Except As Marked, All Systems Reviewed And Found Negative Cardiovascular: Positive for: Other (high blood pressure) Neurological: Positive for: Headache Psych: Positive for: Anxiety Physical Exam - Reviewed Nursing Documentation Reviewed: Yes Vital Signs Reviewed: Yes - Physical Exam Appears: Positive for: Non-toxic, No Acute Distress Head Exam: Positive for: ATRAUMATIC, NORMAL INSPECTION, NORMOCEPHALIC Skin: Positive for: Normal Color, Warm, Dry Eye Exam: Positive for: Normal appearance, EOMI, PERRL. Negative for: Nystagmus ENT: Positive for: Normal ENT Inspection Neck: Positive for: Normal, Painless ROM, Supple Cardiovascular/Chest: Positive for: Regular Rate, Rhythm. Negative for: Murmur Respiratory: Positive for: Normal Breath Sounds. Negative for: Respiratory Distress Gastrointestinal/Abdominal: Positive for: Normal Exam, Bowel Sounds, Soft. Negative for: Tenderness Back: Positive for: Normal Inspection Extremity: Positive for: Normal ROM. Negative for: Pedal Edema, Deformity Neurologic/Psych: Positive for: Alert, Oriented. Negative for: Motor/Sensory Deficits - ECG O2 Sat by Pulse Oximetry: 99 (RA) Pulse Ox Interpretation: Normal Medical Decision Making Medical Decision Making: Time: 2:50 Initial Impression: Resolving high blood pressure Disposition - Clinical Impression Clinical Impression: Abnormal blood pressure - Disposition Referrals: Oscar Fagan MD [Primary Care Provider] - Disposition Time: 03:00 Condition: STABLE Instructions: Hypertension (DC) Forms: [facility] (Eth[place]ian) Print Language: [place]
[2017-07-12 03:11] VITALS: BP 149/97; PULSE 84; RESP 18
== END 2017-07-12 03:14 | disposition home or self-care (01) ==
LOC: H.ER 02:25
DX: I10 Essential (primary) hypertension (principal); E78.00 Pure hypercholesterolemia, unspecified; I34.1 Nonrheumatic mitral (valve) prolapse; I25.10 Atherosclerotic heart disease of native coronary artery without angina pectoris; M19.90 Unspecified osteoarthritis, unspecified site; Z79.82 Long term (current) use of aspirin; Z86.73 Personal history of transient ischemic attack (TIA), and cerebral infarction without residual deficits; Z95.5 Presence of coronary angioplasty implant and graft

== ENCOUNTER 2017-10-04 20:03 | Inpatient (IN) | payer MEDICARE ==
[2017-10-04 20:03] VITALS: BMI 28.3
[2017-10-04] MEDS ORDERED: Sodium Chloride 0.9% 1,000 ML IV STA (21:40)
--- NOTE | 2017-10-04 21:47 | ED PDOC ---
HPI: Male Pain Time Seen by Provider: 10/04/17 21:29 Chief Complaint (Nursing): Male Genitourinary Chief Complaint (Provider): Testicular pain History Per: Patient History/Exam Limitations: no limitations Onset/Duration Of Symptoms: Days (yesterday) Current Symptoms Are (Timing): Still Present Additional History Per: Patient Additional Complaint(s): Pt. with left testicular pain and swelling since yesterday. Also blood in urine. No burning or pain on urination. No weakness, abd pain, back pain. No nausea, vomit. No dysuria. Past Medical History Vital Signs: Last Vital Signs Temp 97.9 F 10/04/17 20:55 Pulse 115 H 10/04/17 20:55 Resp 17 10/04/17 20:55 BP 154/88 H 10/04/17 20:55 Pulse Ox 96 10/04/17 20:55 - Medical History PMH: Arthritis (Osteoarthritis), CAD (s/p stent), Diabetes, Gastritis, HTN, Hypercholesterolemia, Hypothyroidism, TIA Denies: Fractures, Chronic Kidney Disease Comment Only: Mitral Valve Prolapse (REGURGITATION) Other PMH: prostate issues - Surgical History Surgical History: Denies: Pacemaker - Family History Family History: States: Unknown Family Hx - Living Arrangements Living Arrangements: With Family - Social History Alcohol: None Drugs: Denies - Home Medications Home Medications: Ambulatory Orders Medication Instructions Recorded Allopurinol [Zyloprim] 100 mg PO DAILY 06/20/17 Aspirin [Ecotrin] 81 mg PO HS 06/20/17 Calcitriol [Calcitriol] 0.25 mcg PO MWF 06/20/17 Clopidogrel [Plavix] 75 mg PO DAILY 06/20/17 Doxazosin [Cardura] 4 mg PO HS 06/20/17 Furosemide [Lasix] 20 mg PO DAILY 06/20/17 Losartan [Cozaar] 50 mg PO DAILY 06/20/17 [id number] Ethyl Esters 1 GM 2 gm PO Q12H 06/20/17 [Lovaza] Ranitidine HCl [Zantac] 150 mg PO DAILY 06/20/17 Ranolazine [Ranexa] 500 mg PO Q12H 06/20/17 Sevelamer [Renagel] 800 mg PO DAILY 06/20/17 Tamsulosin [Flomax] 0.4 mg PO DAILY 06/20/17 Atorvastatin [Lipitor] 40 mg PO DAILY #30 tab 06/22/17 - Allergies Allergies/Adverse Reactions: Allergies Allergy/AdvReac Type Severity Reaction Status Date / Time No Known Allergies Allergy Verified 10/04/17 20:59 Review of Systems ROS Statement: Except As Marked, All Systems Reviewed And Found Negative Genitourinary Male: Positive for: Hematuria, Scrotal Pain Physical Exam - Reviewed Nursing Documentation Reviewed: Yes Vital Signs Reviewed: Yes - Physical Exam Appears: Positive for: Non-toxic, No Acute Distress Head Exam: Positive for: ATRAUMATIC, NORMAL INSPECTION, NORMOCEPHALIC Skin: Positive for: Normal Color, Warm, DRY Eye Exam: Positive for: EOMI, Normal appearance, PERRL ENT: Positive for: Normal ENT Inspection Neck: Positive for: Normal, Painless ROM Cardiovascular/Chest: Positive for: Regular Rate, Rhythm Respiratory: Positive for: CNT, Normal Breath Sounds Gastrointestinal/Abdominal: Positive for: Normal Exam, Bowel Sounds, Soft. Negative for: Tenderness Male Genital Exam: Positive for: scrotum tenderness (L), testicular tenderness ( L) (swelling). Negative for: urethral discharge Back: Positive for: Normal Inspection. Negative for: L CVA Tenderness, R CVA Tenderness Extremity: Positive for: Normal ROM. Negative for: Tenderness, Pedal Edema Neurologic/Psych: Positive for: Alert, Oriented - Laboratory Results Result Diagrams: 10/04/17 22:20 10/04/17 22:20 Interpretation Of Abn Labs: 24.8 wbc, elevated bun, urine wbc - ECG O2 Sat by Pulse Oximetry: 96 Pulse Ox Interpretation: Normal - Progress ED Course And Treament: 1209am: Stable. Spoke with Dr. Spence who will admit. Wants rocephin. Will consult in AM. Spoke with Dr. Cook who will admit and wants doxy IV. AAOx3. Disposition - Clinical Impression Clinical Impression: Urinary tract infection, Sepsis, Epididymitis - Patient ED Disposition Is Patient to be Admitted: Yes Counseled Patient/Family Regarding: Studies Performed, Diagnosis - Disposition Disposition Time: 00:10 Condition: FAIR - Pt Status Changed To: Hospital Disposition Of: Inpatient - Admit Certification Admit to Inpatient:: After my assessment, the patient will require hospitalization for at least two midnights. This is because of the severity of symptoms shown, intensity of services needed, and/or the medical risk in this patient being treated as an outpatient. - POA Present On Arrival: None
[2017-10-04 22:46] LABS: ALBUMIN 3.6 g/dL (3.5-5.0); ALT/SGPT 48 U/L (21-72); AST/SGOT 49 U/L (17-59); BLOOD UREA NITROGEN 26 mg/dl (9-20); CALCIUM 8.8 mg/dL (8.4-10.2); GFR AFRICAN-AMERICAN > 60; GFR NON-AFRICAN AMERICAN 54
[2017-10-04 22:47] LABS: URINE BACTERIA OCC (<OCC); URINE BILIRUBIN NEGATIVE (NEGATIVE); URINE BLOOD SMALL (NEGATIVE); URINE CLARITY SLIGHTY-CLOUDY (Clear); URINE COLOR YELLOW (YELLOW); URINE GLUCOSE (UA) NEG (Normal); URINE LEUKOCYTE ESTERASE SMALL Leu/uL (Negative); URINE NITRATE NEGATIVE (NEGATIVE); URINE PROTEIN NEGATIVE (NEGATIVE); URINE UROBILINOGEN 0.2-1.0 mg/dL (0.2-1.0)
[2017-10-04 22:48] LABS: BASO # 0.1 K/uL (0.0-0.2); BASO % 0.5 % (0.0-2.0); EOS # 0.1 K/uL (0.0-0.7); EOS % 0.3 % (0.0-4.0); HEMOGLOBIN 13.4 g/dL (12.0-18.0); LYMPH # 1.8 K/uL (1.0-4.3); LYMPH % 7.2 % (20.0-40.0); MEAN CELL VOLUME 92.8 fl (80.0-94.0); MEAN CORPUSCULAR HEMOGLOBIN 30.1 pg (27.0-31.0); MEAN CORPUSCULAR HGB CONC 32.4 g/dL (33.0-37.0); MEAN PLATELET VOLUME 9.1 fl (7.2-11.7); MONO # 1.1 K/uL (0.0-0.8); MONO % 4.3 % (0.0-10.0); NEUT # 21.8 K/uL (1.8-7.0); NEUT % 87.7 % (50.0-75.0); NRBC % 0.1 % (0.0-0.0); PLATELET COUNT 198 K/uL (130-400); RBC 4.46 Mil/uL (4.40-5.90); RED CELL DISTRIBUTION WIDTH 13.3 % (11.5-14.5); WHITE BLOOD COUNT 24.8 K/uL (4.8-10.8)
--- NOTE | 2017-10-04 22:58 | US ---
EXAM: US Scrotum CLINICAL HISTORY: 76 years old, male; Pain; Scrotum pain; Additional info: Testicular pain TECHNIQUE: Real-time ultrasound of the scrotum with color Doppler and image documentation. COMPARISON: No relevant prior studies available. FINDINGS: Right testicle: No mass. No torsion. Left testicle: No mass. No torsion. Increased vascularity. Epididymides: Enlarged, heterogeneous, hypervascular LEFT epididymis. Scrotum: Scrotal wall edema. IMPRESSION: 1. Findings suggestive of LEFT epididymitis and possible orchitis.
[2017-10-04 23:00] LABS: INR 1.2 (0.9-1.2); PARTIAL THROMBOPLASTIN TIME 31.7 Seconds (25.6-37.1); PROTHROMBIN TIME 13.5 Seconds (9.8-13.1)
[2017-10-04 23:16] LABS: BANDS 3 % (0-2); LYMPHOCYTE 11 % (20-50); MONOCYTE 6 % (0-10); NEUTROPHIL 80 % (42-75); PLATELET ESTIMATE NORMAL (NORMAL); TOTAL CELLS COUNTED 100
[2017-10-04 23:17] LABS: HYPOCHROMIC SLIGHT; TOXIC GRANULATION PRESENT
[2017-10-04] MEDS ORDERED: cefTRIAXone (Rocephin) 1 gm Inj IV ONE (23:54)
[2017-10-05] MEDS ORDERED: cefTRIAXone (Rocephin) 1 gm Inj ONE (00:05)
[2017-10-05] MEDS ORDERED: cefTRIAXone 1 gm/NS 100ML IVPB ONE (00:15)
[2017-10-05 01:01] LABS: VENOUS BLOOD GAS BASE EXCESS -1.9 mmol/L (0.0-2.0); VENOUS BLOOD GAS PCO2 35 mmHg (40-60); VENOUS BLOOD GAS PO2 59 mm/Hg (30-55); VENOUS BLOOD PH 7.41 (7.32-7.43)
[2017-10-05 09:44] LABS: BASO # 0.1 K/uL (0.0-0.2); BASO % 0.3 % (0.0-2.0); EOS # 0.1 K/uL (0.0-0.7); EOS % 0.5 % (0.0-4.0); HEMOGLOBIN 12.3 g/dL (12.0-18.0); LYMPH # 1.9 K/uL (1.0-4.3); LYMPH % 7.4 % (20.0-40.0); MEAN CELL VOLUME 92.7 fl (80.0-94.0); MEAN CORPUSCULAR HEMOGLOBIN 30.1 pg (27.0-31.0); MEAN CORPUSCULAR HGB CONC 32.4 g/dL (33.0-37.0); MEAN PLATELET VOLUME 9.1 fl (7.2-11.7); NEUT # 22.2 K/uL (1.8-7.0); NEUT % 87.8 % (50.0-75.0); RBC 4.08 Mil/uL (4.40-5.90); RED CELL DISTRIBUTION WIDTH 13.2 % (11.5-14.5); WHITE BLOOD COUNT 25.3 K/uL (4.8-10.8)
[2017-10-05 10:14] LABS: LDL CHOLESTEROL 74 mg/dL (0-129)
[2017-10-05 10:21] LABS: ALB/GLOB RATIO 0.9 (1.0-2.1); ALBUMIN 3.3 g/dL (3.5-5.0); ALT/SGPT 41 U/L (21-72); AST/SGOT 37 U/L (17-59); BLOOD UREA NITROGEN 22 mg/dl (9-20); CALCIUM 8.3 mg/dL (8.4-10.2); GFR AFRICAN-AMERICAN > 60; GFR NON-AFRICAN AMERICAN 59; HDL CHOLESTEROL 15 MG/DL (30-70)
[2017-10-05] MEDS: Omega-3-Acid Ethyl Esters 1 GM Cap PO SCH ×2 (10:50→21:32)
[2017-10-05] MEDS: Insulin Lispro (humaLOG) 100 Units/ml Inj SC SCH ×3 (13:19→21:59)
[2017-10-05] MEDS: Sodium Chloride 0.9% 1,000 ML IV SCH (13:23)
--- NOTE | 2017-10-05 13:37 | CP.PCM.CON ---
History of Present Illness - History of Present Illness History of Present Illness: Infectious Disease Consultation Note- asked to see this patient at the request of for sepsis, epididymitis HPI- Patient is a 76 year old male with pmh of DM II, CAD s/p stent, HTN, HLD, hypoithyroidism and ? BPH who was admitted to hospital with c/o 1 days of left scrotal swelling and pain. he denies any injury to the area. denies any dysurea or increased urination, denies any penile discharge. states this is the first time he has something like this. deneis any abd pain, denies any diarrhea, denies any rectal pain, denies any nausea or vomiting. denies any fever or chills. PMH: Arthritis (Osteoarthritis), CAD (s/p stent), Diabetes, Gastritis, HTN, Hypercholesterolemia, Hypothyroidism, TIA Denies: Fractures, Chronic Kidney Disease Comment Only: Mitral Valve Prolapse (REGURGITATION) Other PMH: prostate issues Review of Systems - Review of Systems Review of Systems: ROS- c/o 1 days of left scrotal swelling and pain. he denies any injury to the area. denies any dysurea or increased urination, denies any penile discharge. states this is the first time he has something like this. denies any abd pain, denies any diarrhea, denies any rectal pain, denies any nausea or vomiting. denies any fever or chills. denies any sob or cough, denies any chest pain. Past Patient History - Past Medical History & Family History Past Medical History?: Yes - Past Social History Smoking Status: Never Smoked Drugs: Denies Home Situation {Lives}: With Family - CARDIAC Hx Hypercholesterolemia: Yes Hx Hypertension: Yes Hx Mitral Valve Prolapse: Yes (REGURGITATION) Hx Pacemaker: No - PULMONARY Hx Respiratory Disorders: No - NEUROLOGICAL Hx Transient Ischemic Attacks (TIA): Yes - HEENT Hx HEENT Problems: Yes Hx Cataracts: Yes - RENAL Hx Chronic Kidney Disease: No - ENDOCRINE/METABOLIC Hx Diabetes Mellitus Type 2: Yes Hx Hypothyroidism: Yes - HEMATOLOGICAL/ONCOLOGICAL Hx Blood Disorders: No - INTEGUMENTARY Hx Dermatological Problems: No - MUSCULOSKELETAL/RHEUMATOLOGICAL Hx Arthritis: Yes (Osteoarthritis) Hx Falls: No Hx Fractures: No - GASTROINTESTINAL Hx Gastritis: Yes - GENITOURINARY/GYNECOLOGICAL Hx Genitourinary Disorders: Yes Hx Prostate Problems: Yes - PSYCHIATRIC Hx Psychophysiologic Disorder: No Hx Substance Use: No - SURGICAL HISTORY Hx Surgeries: Yes Hx Cataract Extraction: Yes Hx Cardiac Catheterization: Yes Other/Comment: appendicitis?? - ANESTHESIA Hx Anesthesia: Yes Hx Anesthesia Reactions: No Hx Malignant Hyperthermia: No Has any member of the family had a problem w/ anesthesia?: No Meds Allergies/Adverse Reactions: Allergies Allergy/AdvReac Type Severity Reaction Status Date / Time No Known Allergies Allergy Verified 10/04/17 20:59 - Medications Medications: Current Medications Allopurinol (Zyloprim) 100 mg PO DAILY [facility] Last Admin: 10/05/17 10:52 Dose: 100 mg Aspirin (Ecotrin) 81 mg PO HS [facility] Atorvastatin Calcium (Lipitor) 40 mg PO DAILY [facility] Last Admin: 10/05/17 10:55 Dose: 40 mg Clopidogrel Bisulfate (Plavix) 75 mg PO DAILY [facility] Last Admin: 10/05/17 10:54 Dose: 75 mg Doxazosin Mesylate (Cardura) 4 mg PO HS [facility] Famotidine (Pepcid) 20 mg PO DAILY [facility] Last Admin: 10/05/17 10:50 Dose: 20 mg Heparin Sodium (Porcine) (Heparin) 5,000 units SC Q8 [facility] PRN Reason: Protocol Last Admin: 10/05/17 10:54 Dose: 5,000 units Ceftriaxone Sodium 1 gm/ (Sodium Chloride) 100 mls @ 100 mls/hr IVPB DAILY [facility] PRN Reason: Protocol Doxycycline Hyclate 100 mg/ (Sodium Chloride) 100 mls @ 100 mls/hr IVPB Q12 [facility] PRN Reason: Protocol Last Admin: 10/05/17 13:25 Dose: 100 mls/hr Sodium Chloride (Sodium Chloride 0.9%) 1,000 mls @ 100 mls/hr IV .Q10H [facility] Stop: 10/06/17 12:10 Last Admin: 10/05/17 13:23 Dose: 100 mls/hr Insulin Human Lispro (Humalog) 0 units SC ACCU-CHECK [facility] PRN Reason: Protocol Last Admin: 10/05/17 13:19 Dose: Not Given Ketorolac Tromethamine (Toradol) 15 mg IVP Q6 PRN PRN Reason: Pain, moderate (4-7) Losartan Potassium (Cozaar) 50 mg PO DAILY [facility] Last Admin: 10/05/17 10:50 Dose: 50 mg [id number]-[id number] Ethyl Esters (Lovaza) 2 gm PO Q12H [facility] Last Admin: 10/05/17 10:50 Dose: 2 gm Tamsulosin HCl (Flomax) 0.4 mg PO DAILY [facility] Last Admin: 10/05/17 10:51 Dose: 0.4 mg Physical Exam - Constitutional Appears: No Acute Distress - Head Exam Head Exam: ATRAUMATIC - Eye Exam Eye Exam: EOMI - ENT Exam ENT Exam: Normal Oropharynx - Neck Exam Neck exam: Positive for: Full Rom - Respiratory Exam Respiratory Exam: Clear to Auscultation Bilateral, NORMAL BREATHING PATTERN - Cardiovascular Exam Cardiovascular Exam: RRR, +S1, +S2 - GI/Abdominal Exam GI & Abdominal Exam: Normal Bowel Sounds, Soft Additional comments: NT, ND no CVA tenderness b/l - Exam Additional comments: exam- left scrotal edema nad slight erythema no lesions - Neurological Exam Neurological exam: Alert, Oriented x3 Results - Vital Signs Recent Vital Signs: Last Vital Signs Temp 99.0 F 10/05/17 12:00 Pulse 87 10/05/17 12:00 Resp 18 10/05/17 12:00 BP 115/77 10/05/17 12:00 Pulse Ox 97 10/05/17 12:00 - Labs Result Diagrams: 10/05/17 09:15 10/05/17 09:15 Labs: Laboratory Results - last 24 hr 10/04/17 10/04/17 10/04/17 21:50 22:20 22:20 WBC 24.8 H D RBC 4.46 Hgb 13.4 Hct 41.4 MCV 92.8 MCH 30.1 MCHC 32.4 L RDW 13.3 Plt Count 198 MPV 9.1 Neut % (Auto) 87.7 H Lymph % (Auto) 7.2 L [place] % (Auto) 4.3 Eos % (Auto) 0.3 Baso % (Auto) 0.5 Neut # (Auto) 21.8 H Lymph # (Auto) 1.8 [place]cher # (Auto) 1.1 H Eos # (Auto) 0.1 Baso # (Auto) 0.1 Neutrophils % (Manual) 80 H Band Neutrophils % 3 H Lymphocytes % (Manual) 11 L Monocytes % (Manual) 6 Toxic Granulation Present Platelet Estimate Normal Hypochromasia (manual) Slight PT INR APTT pO2 VBG pH VBG pCO2 VBG HCO3 VBG Total CO2 VBG O2 Sat (Calc) VBG Base Excess VBG Potassium Glucose Lactate FiO2 Sodium 138 Potassium 4.4 Chloride 104 Carbon Dioxide 22 Anion Gap 16 BUN 26 H Creatinine 1.3 Est GFR ( Amer) > 60 Est GFR (Non-Af Amer) 54 Random Glucose 168 H Calcium 8.8 Total Bilirubin 0.7 AST 49 ALT 48 Alkaline Phosphatase 119 Total Protein 7.2 Albumin 3.6 Globulin 3.6 Albumin/Globulin Ratio 1.0 Triglycerides Cholesterol LDL Cholesterol Direct HDL Cholesterol Venous Blood Potassium Urine Color Yellow Urine Clarity Slighty-cloudy Urine pH 6.0 Ur Specific [place] 1.013 Urine Protein Negative Urine Glucose (UA) Neg Urine Ketones Negative Urine Blood Small Urine Nitrate Negative Urine Bilirubin Negative Urine Urobilinogen 0.2-1.0 Ur Leukocyte Esterase Small Urine RBC (Auto) 3 Urine Microscopic WBC 21 H Urine Bacteria Occ H 10/04/17 10/05/17 10/05/17 22:20 00:58 09:15 WBC 25.3 H RBC 4.08 L Hgb 12.3 Hct 37.8 MCV 92.7 MCH 30.1 MCHC 32.4 L RDW 13.2 Plt Count 192 MPV 9.1 Neut % (Auto) 87.8 H Lymph % (Auto) 7.4 L [place] % (Auto) 4.0 Eos % (Auto) 0.5 Baso % (Auto) 0.3 Neut # (Auto) 22.2 H Lymph # (Auto) 1.9 [place] # (Auto) 1.0 H Eos # (Auto) 0.1 Baso # (Auto) 0.1 Neutrophils % (Manual) Band Neutrophils % Lymphocytes % (Manual) Monocytes % (Manual) Toxic Granulation Platelet Estimate Hypochromasia (manual) PT 13.5 H INR 1.2 APTT 31.7 pO2 59 H VBG pH 7.41 VBG pCO2 35 L VBG HCO3 23.3 VBG Total CO2 23.3 VBG O2 Sat (Calc) 95.5 H VBG Base Excess -1.9 L VBG Potassium 4.0 Glucose 121 H Lactate 1.5 FiO2 21.0 Sodium 135.0 Potassium Chloride 103.0 Carbon Dioxide Anion Gap BUN Creatinine Est GFR ( Amer) Est GFR (Non-Af Amer) Random Glucose Calcium Total Bilirubin AST ALT Alkaline Phosphatase Total Protein Albumin Globulin Albumin/Globulin Ratio Triglycerides Cholesterol LDL Cholesterol Direct HDL Cholesterol Venous Blood Potassium 4.0 Urine Color Urine Clarity Urine pH Ur Specific [place] Urine Protein Urine Glucose (UA) Urine Ketones Urine Blood Urine Nitrate Urine Bilirubin Urine Urobilinogen Ur Leukocyte Esterase Urine RBC (Auto) Urine Microscopic WBC Urine Bacteria 10/05/17 09:15 WBC RBC Hgb Hct MCV MCH MCHC RDW Plt Count MPV Neut % (Auto) Lymph % (Auto) [place] % (Auto) Eos % (Auto) Baso % (Auto) Neut # (Auto) Lymph # (Auto) [place] # (Auto) Eos # (Auto) Baso # (Auto) Neutrophils % (Manual) Band Neutrophils % Lymphocytes % (Manual) Monocytes % (Manual) Toxic Granulation Platelet Estimate Hypochromasia (manual) PT INR APTT pO2 VBG pH VBG pCO2 VBG HCO3 VBG Total CO2 VBG O2 Sat (Calc) VBG Base Excess VBG Potassium Glucose Lactate FiO2 Sodium 138 Potassium 4.1 Chloride 103 Carbon Dioxide 26 Anion Gap 13 BUN 22 H Creatinine 1.2 Est GFR ( Amer) > 60 Est GFR (Non-Af Amer) 59 Random Glucose 192 H Calcium 8.3 L Total Bilirubin 0.6 AST 37 ALT 41 Alkaline Phosphatase 100 Total Protein 6.9 Albumin 3.3 L Globulin 3.6 Albumin/Globulin Ratio 0.9 L Triglycerides 174 H D Cholesterol 160 LDL Cholesterol Direct 74 HDL Cholesterol 15 L Venous Blood Potassium Urine Color Urine Clarity Urine pH Ur Specific [place] Urine Protein Urine Glucose (UA) Urine Ketones Urine Blood Urine Nitrate Urine Bilirubin Urine Urobilinogen Ur Leukocyte Esterase Urine RBC (Auto) Urine Microscopic WBC Urine Bacteria Laboratory Results - last 72 hr 10/04/17 10/04/17 10/04/17 21:50 22:20 22:20 WBC 24.8 H D RBC 4.46 Hgb 13.4 Hct 41.4 MCV 92.8 MCH 30.1 MCHC 32.4 L RDW 13.3 Plt Count 198 MPV 9.1 Neut % (Auto) 87.7 H Lymph % (Auto) 7.2 L [place] % (Auto) 4.3 Eos % (Auto) 0.3 Baso % (Auto) 0.5 Neut # (Auto) 21.8 H Lymph # (Auto) 1.8 [place] # (Auto) 1.1 H Eos # (Auto) 0.1 Baso # (Auto) 0.1 Neutrophils % (Manual) 80 H Band Neutrophils % 3 H Lymphocytes % (Manual) 11 L Monocytes % (Manual) 6 Toxic Granulation Present Platelet Estimate Normal Hypochromasia (manual) Slight PT INR APTT pO2 VBG pH VBG pCO2 VBG HCO3 VBG Total CO2 VBG O2 Sat (Calc) VBG Base Excess VBG Potassium Glucose Lactate FiO2 Sodium 138 Potassium 4.4 Chloride 104 Carbon Dioxide 22 Anion Gap 16 BUN 26 H Creatinine 1.3 Est GFR ( Amer) > 60 Est GFR (Non-Af Amer) 54 POC Glucose (mg/dL) Random Glucose 168 H Calcium 8.8 Total Bilirubin 0.7 AST 49 ALT 48 Alkaline Phosphatase 119 Total Protein 7.2 Albumin 3.6 Globulin 3.6 Albumin/Globulin Ratio 1.0 Triglycerides Cholesterol LDL Cholesterol Direct HDL Cholesterol Venous Blood Potassium Urine Color Yellow Urine Clarity Slighty-cloudy Urine pH 6.0 Ur Specific [place] 1.013 Urine Protein Negative Urine Glucose (UA) Neg Urine Ketones Negative Urine Blood Small Urine Nitrate Negative Urine Bilirubin Negative Urine Urobilinogen 0.2-1.0 Ur Leukocyte Esterase Small Urine RBC (Auto) 3 Urine Microscopic WBC 21 H Urine Bacteria Occ H 10/04/17 10/05/17 10/05/17 22:20 00:58 09:15 WBC 25.3 H RBC 4.08 L Hgb 12.3 Hct 37.8 MCV 92.7 MCH 30.1 MCHC 32.4 L RDW 13.2 Plt Count 192 MPV 9.1 Neut % (Auto) 87.8 H Lymph % (Auto) 7.4 L [place] % (Auto) 4.0 Eos % (Auto) 0.5 Baso % (Auto) 0.3 Neut # (Auto) 22.2 H Lymph # (Auto) 1.9 [place] # (Auto) 1.0 H Eos # (Auto) 0.1 Baso # (Auto) 0.1 Neutrophils % (Manual) Band Neutrophils % Lymphocytes % (Manual) Monocytes % (Manual) Toxic Granulation Platelet Estimate Hypochromasia (manual) PT 13.5 H INR 1.2 APTT 31.7 pO2 59 H VBG pH 7.41 VBG pCO2 35 L VBG HCO3 23.3 VBG Total CO2 23.3 VBG O2 Sat (Calc) 95.5 H VBG Base Excess -1.9 L VBG Potassium 4.0 Glucose 121 H Lactate 1.5 FiO2 21.0 Sodium 135.0 Potassium Chloride 103.0 Carbon Dioxide Anion Gap BUN Creatinine Est GFR ( Amer) Est GFR (Non-Af Amer) POC Glucose (mg/dL) Random Glucose Calcium Total Bilirubin AST ALT Alkaline Phosphatase Total Protein Albumin Globulin Albumin/Globulin Ratio Triglycerides Cholesterol LDL Cholesterol Direct HDL Cholesterol Venous Blood Potassium 4.0 Urine Color Urine Clarity Urine pH Ur Specific [place] Urine Protein Urine Glucose (UA) Urine Ketones Urine Blood Urine Nitrate Urine Bilirubin Urine Urobilinogen Ur Leukocyte Esterase Urine RBC (Auto) Urine Microscopic WBC Urine Bacteria 10/05/17 10/05/17 10/05/17 09:15 13:09 15:56 WBC RBC Hgb Hct MCV MCH MCHC RDW Plt Count MPV Neut % (Auto) Lymph % (Auto) [place] % (Auto) Eos % (Auto) Baso % (Auto) Neut # (Auto) Lymph # (Auto) [place] # (Auto) Eos # (Auto) Baso # (Auto) Neutrophils % (Manual) Band Neutrophils % Lymphocytes % (Manual) Monocytes % (Manual) Toxic Granulation Platelet Estimate Hypochromasia (manual) PT INR APTT pO2 VBG pH VBG pCO2 VBG HCO3 VBG Total CO2 VBG O2 Sat (Calc) VBG Base Excess VBG Potassium Glucose Lactate FiO2 Sodium 138 Potassium 4.1 Chloride 103 Carbon Dioxide 26 Anion Gap 13 BUN 22 H Creatinine 1.2 Est GFR ( Amer) > 60 Est GFR (Non-Af Amer) 59 POC Glucose (mg/dL) 99 105 Random Glucose 192 H Calcium 8.3 L Total Bilirubin 0.6 AST 37 ALT 41 Alkaline Phosphatase 100 Total Protein 6.9 Albumin 3.3 L Globulin 3.6 Albumin/Globulin Ratio 0.9 L Triglycerides 174 H D Cholesterol 160 LDL Cholesterol Direct 74 HDL Cholesterol 15 L Venous Blood Potassium Urine Color Urine Clarity Urine pH Ur Specific [place] Urine Protein Urine Glucose (UA) Urine Ketones Urine Blood Urine Nitrate Urine Bilirubin Urine Urobilinogen Ur Leukocyte Esterase Urine RBC (Auto) Urine Microscopic WBC Urine Bacteria Accession No. : [id number] Patient Name / ID : ALONZO AREVALO / [id number] Exam Date : 10/04/2017 21:48:37 ( Approved ) Study Comment : Sex / Age : M / 76Y Creator : Dg Mcqueen MD Dictator : Accredited Pharmacy Technician : Manual Lathe Machinist : Dg Mcqueen MD Approver2 : Report Date : 10/04/2017 22:58:00 My Comment : [facility] Division of Radiology [address] [address] Tel. no. Patient Name: IRINA ROSADO Pt. Address: [address] [place] [address]. Rec #: [id number] [place] [address]: Adriana KAPADIA, Dany Rendon Pt CELL Order Location: [facility] : 1940 Male Age: 76 Order #: [id number] Reason for exam: testicular pain Ultrasound TESTES DUPLEX COMPLETE Exam Date: 10/04/17 This imaging exam was performed at [facility] EXAM: US Scrotum CLINICAL HISTORY: 76 years old, male; Pain; Scrotum pain; Additional info: Testicular pain TECHNIQUE: Real-time ultrasound of the scrotum with color Doppler and image documentation. COMPARISON: No relevant prior studies available. FINDINGS: Right testicle: No mass. No torsion. Left testicle: No mass. No torsion. Increased vascularity. Epididymides: Enlarged, heterogeneous, hypervascular LEFT epididymis. Scrotum: Scrotal wall edema. IMPRESSION: 1. Findings suggestive of LEFT epididymitis and possible orchitis. Dictated By: Dg Mcqueen MD Dictated Date/Time: 10/04/172257 Signed By: Dg Mcqueen MD Date Signed: [id number] Transcribed By: HANNAH Transcribe Date/Time : 10/04/172257 [id number] Assessment & Plan (1) Epididymitis Status: Acute (2) Sepsis Status: Acute (3) Bacteriuria Status: Acute - Assessment and Plan (Free Text) Assessment: A/P- 76 year old male with multiple medical conditions including DM II, HTN admitted with left scrotal edema c/w epididymitis/orchitis. afebrile high leukocytosis UA- small LE scrotal US report- left epididimytis/orchitis plan- check blood cx x 2. await urine cx. check Urine GC/chlamydia. advise to continue with doxycycline that was already initiated by the primary doctor. can d/c the ceftriaxone at this time. advise to start pt. on IV zosyn 3.375 gram IV q6 hours for broader gram neg coverage. evaluation. All above d/w patient at length and he verbalizes full understanding of all above. Thank you for allowing me to take part in the care of this patient.
--- NOTE | 2017-10-05 15:33 | CON ---
A 76-year-old man admitted to the Emergency Room with tender and swollen left testicle that is identified as left orchitis. The patient given Rocephin 1 g on admission at this day of 10/05/2017 second day in the hospital, the patient is feeling more comfortable, mild tenderness, and will be continuing medication with Rocephin daily. Awaiting urine culture for identification of the organisms. The patient will be sent home with the antibiotics. Brian Spence MD
[2017-10-05] MEDS: Piperacillin/Tazobact 3.375 GM in Sodium Chloride 0.9% 100 ML IVPB SCH (21:26)
[2017-10-06] MEDS: Piperacillin/Tazobact 3.375 GM in Sodium Chloride 0.9% 100 ML IVPB SCH ×4 (04:21→21:04)
[2017-10-06 08:01] LABS: HEMOGLOBIN 12.2 g/dL (12.0-18.0); MEAN CELL VOLUME 91.5 fl (80.0-94.0); MEAN CORPUSCULAR HEMOGLOBIN 30.2 pg (27.0-31.0); RBC 4.04 Mil/uL (4.40-5.90); RED CELL DISTRIBUTION WIDTH 13.4 % (11.5-14.5); WHITE BLOOD COUNT 21.2 K/uL (4.8-10.8)
[2017-10-06 08:01] LABS: BLOOD UREA NITROGEN 15 mg/dl (9-20); CALCIUM 8.3 mg/dL (8.4-10.2); GFR AFRICAN-AMERICAN > 60; GFR NON-AFRICAN AMERICAN 59
[2017-10-06] MEDS: Insulin Lispro (humaLOG) 100 Units/ml Inj SC SCH ×4 (09:37→22:24)
[2017-10-06] MEDS: Omega-3-Acid Ethyl Esters 1 GM Cap PO SCH ×2 (09:38→21:08)
[2017-10-06] MEDS: Sodium Chloride 0.9% 1,000 ML IV SCH (16:21)
--- NOTE | 2017-10-06 17:19 | US ---
HISTORY: swelling TECHNIQUE: Realtime sonography through the scrotum with color and doppler flow. COMPARISON: 10/04/2017 testicular ultrasound FINDINGS: RIGHT TESTICLE: Measures 2.5 x 1.6 x 3.6 cm. Normal echotexture and flow. RIGHT EPIDIDYMIS: Epididymal head measures 1 x 1.1 x 1.2 cm. Epididymal cyst identified. This measures 4 mm. Persistent right epididymitis. LEFT TESTICLE: Measures 2.6 x 3.9 x 2.9 cm. Markedly hypervascular left testicle progressive, increase compared to the prior study. LEFT EPIDIDYMIS: Epididymal head measures 0.9 x 1.2 cm. Hypervascular left epididymis. HYDROCELE: None. VARICOCELE: None. OTHER FINDINGS: Scrotal edema identified bilaterally which represents a stable finding. IMPRESSION: 1. Stable right epididymitis. 2. Acute left epididymitis/ orchitis.
--- NOTE | 2017-10-06 18:07 | RAD ---
PROCEDURE: Radiographs of the chest and bilateral ribs HISTORY: md order COMPARISON: Comparison made with chest radiograph 06/20/2017 TECHNIQUE: Frontal radiograph of the chest and multiple oblique radiographs of the bilateral ribs were obtained. Note the examination is limited due to motion artifact on 2 of the 4 images. FINDINGS: RIGHT RIBS: No fracture or focal lesion visualized. LEFT RIBS: No fracture or focal lesion visualized. LUNGS: Mild bibasilar atelectasis left greater than right. Persistent slight elevation right hemidiaphragm likely due to eventration. PLEURA: No pneumothorax or pleural fluid. CARDIOVASCULAR: Heart appears enlarged. Aorta is slightly ectatic and uncoiled. Calcification of the aortic knob. OTHER FINDINGS: None. IMPRESSION: Limited motion degraded study. No definitive evidence of acute displaced rib fracture. If symptoms persist consider followup CT scan of the chest which is much more sensitive for detecting subtle rib fractures that may not be readily apparent on plain film imaging. Bibasilar atelectasis left greater than right. Elevation right hemidiaphragm likely due to eventration.
--- NOTE | 2017-10-07 00:11 | CP.PCM.HP ---
Past Patient History - Past Medical History & Family History Past Medical History?: Yes - Past Social History Smoking Status: Never Smoked Drugs: Denies Home Situation {Lives}: With Family - CARDIAC Hx Hypercholesterolemia: Yes Hx Hypertension: Yes Hx Mitral Valve Prolapse: Yes (REGURGITATION) Hx Pacemaker: No - PULMONARY Hx Respiratory Disorders: No - NEUROLOGICAL Hx Transient Ischemic Attacks (TIA): Yes - HEENT Hx HEENT Problems: Yes Hx Cataracts: Yes - RENAL Hx Chronic Kidney Disease: No - ENDOCRINE/METABOLIC Hx Diabetes Mellitus Type 2: Yes Hx Hypothyroidism: Yes - HEMATOLOGICAL/ONCOLOGICAL Hx Blood Disorders: No - INTEGUMENTARY Hx Dermatological Problems: No - MUSCULOSKELETAL/RHEUMATOLOGICAL Hx Arthritis: Yes (Osteoarthritis) Hx Falls: No Hx Fractures: No - GASTROINTESTINAL Hx Gastritis: Yes - GENITOURINARY/GYNECOLOGICAL Hx Genitourinary Disorders: Yes Hx Prostate Problems: Yes - PSYCHIATRIC Hx Psychophysiologic Disorder: No Hx Substance Use: No - SURGICAL HISTORY Hx Surgeries: Yes Hx Cataract Extraction: Yes Hx Cardiac Catheterization: Yes Other/Comment: appendicitis?? - ANESTHESIA Hx Anesthesia: Yes Hx Anesthesia Reactions: No Hx Malignant Hyperthermia: No Has any member of the family had a problem w/ anesthesia?: No Meds Allergies/Adverse Reactions: Allergies Allergy/AdvReac Type Severity Reaction Status Date / Time No Known Allergies Allergy Verified 10/04/17 20:59 Results - Vital Signs Recent Vital Signs: Last Vital Signs Temp 100.5 F H 10/06/17 20:38 Pulse 91 H 10/06/17 20:38 Resp 20 10/06/17 20:38 BP 147/80 10/06/17 20:38 Pulse Ox 95 10/06/17 20:38 - Labs Result Diagrams: 10/06/17 06:24 10/06/17 06:28 Labs: Laboratory Results - last 24 hr 10/05/17 10/06/17 10/06/17 21:43 05:14 06:24 WBC 21.2 H RBC 4.04 L Hgb 12.2 Hct 37.0 MCV 91.5 MCH 30.2 MCHC 33.0 RDW 13.4 Plt Count 226 Sodium Potassium Chloride Carbon Dioxide Anion Gap BUN Creatinine Est GFR ( Amer) Est GFR (Non-Af Amer) POC Glucose (mg/dL) 112 H 87 Random Glucose Calcium 10/06/17 10/06/17 10/06/17 06:28 11:43 16:10 WBC RBC Hgb Hct MCV MCH MCHC RDW Plt Count Sodium 140 Potassium 4.1 Chloride 103 Carbon Dioxide 24 Anion Gap 17 BUN 15 Creatinine 1.2 Est GFR ( Amer) > 60 Est GFR (Non-Af Amer) 59 POC Glucose (mg/dL) 134 H 104 Random Glucose 96 Calcium 8.3 L 10/06/17 21:07 WBC RBC Hgb Hct MCV MCH MCHC RDW Plt Count Sodium Potassium Chloride Carbon Dioxide Anion Gap BUN Creatinine Est GFR ( Amer) Est GFR (Non-Af Amer) POC Glucose (mg/dL) 105 Random Glucose Calcium
--- NOTE | 2017-10-07 00:12 | CP.PCM.PN ---
Subjective - Date & Time of Evaluation Date of Evaluation: 10/06/17 Time of Evaluation: 17:25 Objective - Vital Signs/Intake and Output Vital Signs (last 24 hours): Temp Pulse Resp BP Pulse Ox 100.5 F H 91 H 20 147/80 95 10/06/17 20:38 10/06/17 20:38 10/06/17 20:38 10/06/17 20:38 10/06/17 20:38 Intake and Output: 10/06/17 10/07/17 18:59 06:59 Intake Total 1999 Balance 1999 - Medications Medications: Current Medications Acetaminophen (Tylenol 325mg Tab) 650 mg PO Q4 PRN PRN Reason: Fever >100.4 F Last Admin: 10/06/17 18:41 Dose: 650 mg Allopurinol (Zyloprim) 100 mg PO DAILY [facility] Last Admin: 10/06/17 09:43 Dose: 100 mg Aspirin (Ecotrin) 81 mg PO HS [facility] Last Admin: 10/06/17 21:08 Dose: 81 mg Atorvastatin Calcium (Lipitor) 40 mg PO DAILY [facility] Last Admin: 10/06/17 09:37 Dose: 40 mg Clopidogrel Bisulfate (Plavix) 75 mg PO DAILY [facility] Last Admin: 10/06/17 09:39 Dose: 75 mg Famotidine (Pepcid) 20 mg PO DAILY [facility] Last Admin: 10/06/17 09:39 Dose: 20 mg Heparin Sodium (Porcine) (Heparin) 5,000 units SC Q8 MORE PRN Reason: Protocol Last Admin: 10/06/17 18:13 Dose: 5,000 units Doxycycline Hyclate 100 mg/ (Sodium Chloride) 100 mls @ 100 mls/hr IVPB Q12 MORE PRN Reason: Protocol Last Admin: 10/06/17 21:02 Dose: 100 mls/hr Piperacillin Sod/Tazobactam (Sod 3.375 gm/ Sodium Chloride) 100 mls @ 100 mls/ hr IVPB Q6 MORE PRN Reason: Protocol Last Admin: 10/06/17 21:04 Dose: 100 mls/hr Insulin Human Lispro (Humalog) 0 units SC ACCU-CHECK MORE PRN Reason: Protocol Last Admin: 10/06/17 22:24 Dose: Not Given Ketorolac Tromethamine (Toradol) 15 mg IVP Q6 PRN PRN Reason: Pain, moderate (4-7) Last Admin: 10/06/17 09:51 Dose: 15 mg Losartan Potassium (Cozaar) 50 mg PO DAILY [facility] Last Admin: 10/06/17 09:34 Dose: 50 mg [id number]-[id number] Ethyl Esters (Lovaza) 2 gm PO Q12H [facility] Last Admin: 10/06/17 21:08 Dose: 2 gm Tamsulosin HCl (Flomax) 0.4 mg PO Q12 [facility] Last Admin: 10/06/17 21:09 Dose: 0.4 mg - Labs Labs: 10/06/17 06:24 10/06/17 06:28 PT 13.5 Seconds (9.8-13.1) H 10/04/17 22:20 INR 1.2 (0.9-1.2) 10/04/17 22:20 APTT 31.7 Seconds (25.6-37.1) 10/04/17 22:20
[2017-10-07] MEDS: Piperacillin/Tazobact 3.375 GM in Sodium Chloride 0.9% 100 ML IVPB SCH ×4 (03:57→21:00)
[2017-10-07] MEDS: Omega-3-Acid Ethyl Esters 1 GM Cap PO SCH ×2 (08:21→20:55)
[2017-10-07] MEDS: Insulin Lispro (humaLOG) 100 Units/ml Inj SC SCH ×4 (08:30→22:27)
--- NOTE | 2017-10-07 16:34 | CP.PCM.PN ---
Subjective - Date & Time of Evaluation Date of Evaluation: 10/07/17 Time of Evaluation: 13:15 Objective - Vital Signs/Intake and Output Vital Signs (last 24 hours): Temp Pulse Resp BP Pulse Ox 100.4 F H 78 20 136/90 97 10/07/17 16:05 10/07/17 15:52 10/07/17 15:52 10/07/17 15:52 10/07/17 15:52 - Medications Medications: Current Medications Acetaminophen (Tylenol 325mg Tab) 650 mg PO Q4 PRN PRN Reason: Fever >100.4 F Last Admin: 10/07/17 16:05 Dose: 650 mg Allopurinol (Zyloprim) 100 mg PO DAILY [facility] Last Admin: 10/07/17 08:21 Dose: 100 mg Aspirin (Ecotrin) 81 mg PO HS [facility] Last Admin: 10/06/17 21:08 Dose: 81 mg Atorvastatin Calcium (Lipitor) 40 mg PO DAILY [facility] Last Admin: 10/07/17 08:23 Dose: 40 mg Clopidogrel Bisulfate (Plavix) 75 mg PO DAILY [facility] Last Admin: 10/07/17 08:22 Dose: 75 mg Famotidine (Pepcid) 20 mg PO DAILY [facility] Last Admin: 10/07/17 08:22 Dose: 20 mg Heparin Sodium (Porcine) (Heparin) 5,000 units SC Q8 MORE PRN Reason: Protocol Last Admin: 10/07/17 08:23 Dose: 5,000 units Doxycycline Hyclate 100 mg/ (Sodium Chloride) 100 mls @ 100 mls/hr IVPB Q12 MORE PRN Reason: Protocol Last Admin: 10/07/17 08:27 Dose: 100 mls/hr Piperacillin Sod/Tazobactam (Sod 3.375 gm/ Sodium Chloride) 100 mls @ 100 mls/ hr IVPB Q6 MORE PRN Reason: Protocol Last Admin: 10/07/17 09:40 Dose: 100 mls/hr Insulin Human Lispro (Humalog) 0 units SC ACCU-CHECK MORE PRN Reason: Protocol Last Admin: 10/07/17 08:30 Dose: Not Given Ketorolac Tromethamine (Toradol) 15 mg IVP Q6 PRN PRN Reason: Pain, moderate (4-7) Last Admin: 10/06/17 09:51 Dose: 15 mg Losartan Potassium (Cozaar) 50 mg PO DAILY [facility] Last Admin: 10/07/17 08:22 Dose: 50 mg [id number]-1-[id number] Ethyl Esters (Lovaza) 2 gm PO Q12H [facility] Last Admin: 10/07/17 08:21 Dose: 2 gm Tamsulosin HCl (Flomax) 0.4 mg PO Q12 [facility] Last Admin: 10/07/17 08:23 Dose: 0.4 mg - Labs Labs: 10/06/17 06:24 10/06/17 06:28 PT 13.5 Seconds (9.8-13.1) H 10/04/17 22:20 INR 1.2 (0.9-1.2) 10/04/17 22:20 APTT 31.7 Seconds (25.6-37.1) 10/04/17 22:20
[2017-10-08] MEDS: Piperacillin/Tazobact 3.375 GM in Sodium Chloride 0.9% 100 ML IVPB SCH ×4 (04:38→21:20)
[2017-10-08 06:05] LABS: BASO % 0.4 % (0.0-2.0); EOS # 0.2 K/uL (0.0-0.7); EOS % 2.1 % (0.0-4.0); LYMPH # 2.8 K/uL (1.0-4.3); LYMPH % 28.8 % (20.0-40.0); MEAN CELL VOLUME 90.9 fl (80.0-94.0); MEAN CORPUSCULAR HEMOGLOBIN 31.2 pg (27.0-31.0); MEAN CORPUSCULAR HGB CONC 34.4 g/dL (33.0-37.0); MEAN PLATELET VOLUME 8.4 fl (7.2-11.7); MONO % 10.6 % (0.0-10.0); NEUT # 5.6 K/uL (1.8-7.0); NEUT % 58.1 % (50.0-75.0); NRBC % 0.1 % (0.0-0.0); RBC 3.83 Mil/uL (4.40-5.90); RED CELL DISTRIBUTION WIDTH 13.3 % (11.5-14.5); WHITE BLOOD COUNT 9.6 K/uL (4.8-10.8)
[2017-10-08] MEDS: Insulin Lispro (humaLOG) 100 Units/ml Inj SC SCH ×3 (06:36→16:30)
[2017-10-08] MEDS: Omega-3-Acid Ethyl Esters 1 GM Cap PO SCH ×2 (09:40→21:19)
[2017-10-08 12:32] LABS: BLOOD UREA NITROGEN 18 mg/dl (9-20); GFR AFRICAN-AMERICAN > 60; GFR NON-AFRICAN AMERICAN 59
--- NOTE | 2017-10-08 13:17 | CARD ---
APPROVED REPORT EKG Measurement Heart [id number] MA [id number] <Conclusion> Normal sinus rhythm Right bundle branch block Inferior infarct, age undetermined Abnormal ECG
--- NOTE | 2017-10-08 22:35 | CP.PCM.PN ---
Subjective - Date & Time of Evaluation Date of Evaluation: 10/08/17 Time of Evaluation: 19:00 - Subjective Subjective: ID Note- Pt. seen and examined today. states feels much betterr and states the left testicular swelling is much less and denies any pain and denies any dysurea. Objective - Vital Signs/Intake and Output Vital Signs (last 24 hours): Temp Pulse Resp BP Pulse Ox 98.9 F 87 20 153/94 H 96 10/08/17 20:19 10/08/17 20:19 10/08/17 20:19 10/08/17 20:19 10/08/17 20:19 - Medications Medications: Current Medications Acetaminophen (Tylenol 325mg Tab) 650 mg PO Q4 PRN PRN Reason: Fever >100.4 F Last Admin: 10/07/17 16:05 Dose: 650 mg Acetaminophen (Tylenol 325mg Tab) 650 mg PO Q6 PRN PRN Reason: Pain, Mild (1-3) Last Admin: 10/08/17 14:27 Dose: 650 mg Allopurinol (Zyloprim) 100 mg PO DAILY [facility] Last Admin: 10/08/17 09:43 Dose: 100 mg Aspirin (Ecotrin) 81 mg PO HS [facility] Last Admin: 10/08/17 21:19 Dose: 81 mg Atorvastatin Calcium (Lipitor) 40 mg PO DAILY [facility] Last Admin: 10/08/17 09:41 Dose: 40 mg Clopidogrel Bisulfate (Plavix) 75 mg PO DAILY [facility] Last Admin: 10/08/17 09:41 Dose: 75 mg Docusate Sodium (Colace) 100 mg PO BID [facility] Last Admin: 10/08/17 16:26 Dose: 100 mg Famotidine (Pepcid) 20 mg PO DAILY [facility] Last Admin: 10/08/17 09:42 Dose: 20 mg Heparin Sodium (Porcine) (Heparin) 5,000 units SC Q8 MORE PRN Reason: Protocol Last Admin: 10/08/17 16:27 Dose: 5,000 units Doxycycline Hyclate 100 mg/ (Sodium Chloride) 100 mls @ 100 mls/hr IVPB Q12 MORE PRN Reason: Protocol Last Admin: 10/08/17 21:20 Dose: 100 mls/hr Piperacillin Sod/Tazobactam (Sod 3.375 gm/ Sodium Chloride) 100 mls @ 100 mls/ hr IVPB Q6 MORE PRN Reason: Protocol Last Admin: 10/08/17 21:20 Dose: 100 mls/hr Insulin Human Lispro (Humalog) 0 units SC ACCU-CHECK [facility] PRN Reason: Protocol Last Admin: 10/08/17 16:30 Dose: Not Given Ketorolac Tromethamine (Toradol) 15 mg IVP Q6 PRN PRN Reason: Pain, moderate (4-7) Last Admin: 10/08/17 00:43 Dose: 15 mg Losartan Potassium (Cozaar) 50 mg PO DAILY [facility] Last Admin: 10/08/17 09:43 Dose: 50 mg [id number]-1-[id number] Ethyl Esters (Lovaza) 2 gm PO Q12H [facility] Last Admin: 10/08/17 21:19 Dose: 2 gm Tamsulosin HCl (Flomax) 0.4 mg PO Q12 [facility] Last Admin: 10/08/17 21:19 Dose: 0.4 mg - Labs Labs: - Additional Findings Additional findings: - Constitutional Appears: No Acute Distress - Head Exam Head Exam: ATRAUMATIC - Eye Exam Eye Exam: EOMI - ENT Exam ENT Exam: Normal Oropharynx - Neck Exam Neck exam: Positive for: Full Rom - Respiratory Exam Respiratory Exam: Clear to Auscultation Bilateral, NORMAL BREATHING PATTERN - Cardiovascular Exam Cardiovascular Exam: RRR, +S1, +S2 - GI/Abdominal Exam GI & Abdominal Exam: Normal Bowel Sounds, Soft Additional comments: NT, ND no CVA tenderness b/l - Exam Additional comments: exam- left scrotal edema almost resolved and no erythema no lesions - Neurological Exam Neurological exam: Alert, Oriented x 3 Laboratory Results - last 72 hr 10/05/17 10/06/17 10/06/17 21:43 05:14 06:24 WBC 21.2 H RBC 4.04 L Hgb 12.2 Hct 37.0 MCV 91.5 MCH 30.2 MCHC 33.0 RDW 13.4 Plt Count 226 MPV Neut % (Auto) Lymph % (Auto) [place] % (Auto) Eos % (Auto) Baso % (Auto) Neut # (Auto) Lymph # (Auto) [place] # (Auto) Eos # (Auto) Baso # (Auto) Sodium Potassium Chloride Carbon Dioxide Anion Gap BUN Creatinine Est GFR ( Amer) Est GFR (Non-Af Amer) POC Glucose (mg/dL) 112 H 87 Random Glucose Calcium 10/06/17 10/06/17 10/06/17 06:28 11:43 16:10 WBC RBC Hgb Hct MCV MCH MCHC RDW Plt Count MPV Neut % (Auto) Lymph % (Auto) [place] % (Auto) Eos % (Auto) Baso % (Auto) Neut # (Auto) Lymph # (Auto) [place] # (Auto) Eos # (Auto) Baso # (Auto) Sodium 140 Potassium 4.1 Chloride 103 Carbon Dioxide 24 Anion Gap 17 BUN 15 Creatinine 1.2 Est GFR ( Amer) > 60 Est GFR (Non-Af Amer) 59 POC Glucose (mg/dL) 134 H 104 Random Glucose 96 Calcium 8.3 L 10/06/17 10/07/17 10/07/17 21:07 16:17 20:55 WBC RBC Hgb Hct MCV MCH MCHC RDW Plt Count MPV Neut % (Auto) Lymph % (Auto) [place] % (Auto) Eos % (Auto) Baso % (Auto) Neut # (Auto) Lymph # (Auto) [place] # (Auto) Eos # (Auto) Baso # (Auto) Sodium Potassium Chloride Carbon Dioxide Anion Gap BUN Creatinine Est GFR ( Amer) Est GFR (Non-Af Amer) POC Glucose (mg/dL) 105 115 H 90 Random Glucose Calcium 10/08/17 10/08/17 10/08/17 04:20 05:30 11:47 WBC 9.6 D RBC 3.83 L Hgb 12.0 Hct 34.8 L MCV 90.9 MCH 31.2 H MCHC 34.4 RDW 13.3 Plt Count 335 D MPV 8.4 Neut % (Auto) 58.1 Lymph % (Auto) 28.8 [place] % (Auto) 10.6 H Eos % (Auto) 2.1 Baso % (Auto) 0.4 Neut # (Auto) 5.6 Lymph # (Auto) 2.8 [place] # (Auto) 1.0 H Eos # (Auto) 0.2 Baso # (Auto) 0.0 Sodium Potassium Chloride Carbon Dioxide Anion Gap BUN Creatinine Est GFR ( Amer) Est GFR (Non-Af Amer) POC Glucose (mg/dL) 85 132 H Random Glucose Calcium 10/08/17 10/08/17 10/08/17 12:16 15:45 21:09 WBC RBC Hgb Hct MCV MCH MCHC RDW Plt Count MPV Neut % (Auto) Lymph % (Auto) [place] % (Auto) Eos % (Auto) Baso % (Auto) Neut # (Auto) Lymph # (Auto) [place] # (Auto) Eos # (Auto) Baso # (Auto) Sodium 141 Potassium 4.1 Chloride 103 Carbon Dioxide 26 Anion Gap 16 BUN 18 Creatinine 1.2 Est GFR ( Amer) > 60 Est GFR (Non-Af Amer) 59 POC Glucose (mg/dL) 90 144 H Random Glucose 122 H Calcium 9.0 Microbiology 10/05/17 00:30 Blood Blood Culture - Preliminary NO GROWTH AFTER 3 DAYS 10/05/17 00:00 Blood Blood Culture - Preliminary NO GROWTH AFTER 3 DAYS 10/04/17 05:47 Urine Urine Culture - Final No Growth (<1,000 CFU/ML) Accession No. : [id number] Patient Name / ID : ALONZO AREVALO / [id number] Exam Date : 10/06/2017 14:14:09 ( Approved ) Study Comment : Sex / Age : M / 76Y Creator : Sourav Hernandez MD Dictator : Sourav Hernandez MD Casino Games Dealer : Shallot Packer : Sourav Hernandez MD Approver2 : Report Date : 10/06/2017 17:12:28 My Comment : HISTORY: swelling TECHNIQUE: Realtime sonography through the scrotum with color and doppler flow. COMPARISON: 10/04/2017 testicular ultrasound FINDINGS: RIGHT TESTICLE: Measures 2.5 x 1.6 x 3.6 cm. Normal echotexture and flow. RIGHT EPIDIDYMIS: Epididymal head measures 1 x 1.1 x 1.2 cm. Epididymal cyst identified. This measures 4 mm. Persistent right epididymitis. LEFT TESTICLE: Measures 2.6 x 3.9 x 2.9 cm. Markedly hypervascular left testicle progressive, increase compared to the prior study. LEFT EPIDIDYMIS: Epididymal head measures 0.9 x 1.2 cm. Hypervascular left epididymis. HYDROCELE: None. VARICOCELE: None. OTHER FINDINGS: Scrotal edema identified bilaterally which represents a stable finding. IMPRESSION: 1. Stable right epididymitis. 2. Acute left epididymitis/ orchitis. Assessment and Plan (1) Epididymitis Status: Acute (2) Sepsis Status: Acute (3) Bacteriuria Status: Acute - Assessment and Plan (Free Text) Assessment: A/P- 76 year old male with multiple medical conditions including DM II, HTN admitted with left scrotal edema c/w epididymitis/orchitis. afebrile Leukocytosis has resolved. UA- small LE urine cx- neg blood cx- neg x 2 HIV AB- neg scrotal US report- left epididimytis/orchitis plan- urine GC/chlmaydia result pending. advise to continue with doxycycline day #4 advise to start pt. on IV zosyn 3.375 gram IV q6 hours, day #4. can be d/c home on oral antibiotics namely levaquin 750 mg po daily for 6 days and oral doxycycline 100 mg BID for 6 more days. pt. to f/u with as outpatient. all above d/w patient and he verbalizes full understanding of all above.
--- NOTE | 2017-10-08 23:38 | CP.PCM.PN ---
Subjective - Date & Time of Evaluation Date of Evaluation: 10/08/17 Time of Evaluation: 19:35 Objective - Vital Signs/Intake and Output Vital Signs (last 24 hours): Temp Pulse Resp BP Pulse Ox 98.9 F 87 20 153/94 H 96 10/08/17 20:19 10/08/17 20:19 10/08/17 20:19 10/08/17 20:19 10/08/17 20:19 - Medications Medications: Current Medications Acetaminophen (Tylenol 325mg Tab) 650 mg PO Q4 PRN PRN Reason: Fever >100.4 F Last Admin: 10/07/17 16:05 Dose: 650 mg Acetaminophen (Tylenol 325mg Tab) 650 mg PO Q6 PRN PRN Reason: Pain, Mild (1-3) Last Admin: 10/08/17 14:27 Dose: 650 mg Allopurinol (Zyloprim) 100 mg PO DAILY [facility] Last Admin: 10/08/17 09:43 Dose: 100 mg Aspirin (Ecotrin) 81 mg PO HS [facility] [place] Last Admin: 10/08/17 21:19 Dose: 81 mg Atorvastatin Calcium (Lipitor) 40 mg PO DAILY [facility] [place] Last Admin: 10/08/17 09:41 Dose: 40 mg Clopidogrel Bisulfate (Plavix) 75 mg PO DAILY [facility] [place] Last Admin: 10/08/17 09:41 Dose: 75 mg Docusate Sodium (Colace) 100 mg PO BID [facility] [place] Last Admin: 10/08/17 16:26 Dose: 100 mg Famotidine (Pepcid) 20 mg PO DAILY [facility] [place] Last Admin: 10/08/17 09:42 Dose: 20 mg Heparin Sodium (Porcine) (Heparin) 5,000 units SC Q8 [facility] [place] PRN Reason: Protocol Last Admin: 10/08/17 16:27 Dose: 5,000 units Doxycycline Hyclate 100 mg/ (Sodium Chloride) 100 mls @ 100 mls/hr IVPB Q12 [facility] [place] PRN Reason: Protocol Last Admin: 10/08/17 21:20 Dose: 100 mls/hr Piperacillin Sod/Tazobactam (Sod 3.375 gm/ Sodium Chloride) 100 mls @ 100 mls/ hr IVPB Q6 [facility] [place] PRN Reason: Protocol Last Admin: 10/08/17 21:20 Dose: 100 mls/hr Insulin Human Lispro (Humalog) 0 units SC ACCU-CHECK [facility] [place] PRN Reason: Protocol Last Admin: 10/08/17 16:30 Dose: Not Given Ketorolac Tromethamine (Toradol) 15 mg IVP Q6 PRN PRN Reason: Pain, moderate (4-7) Last Admin: 10/08/17 00:43 Dose: 15 mg Losartan Potassium (Cozaar) 50 mg PO DAILY [facility] [place] Last Admin: 10/08/17 09:43 Dose: 50 mg Esnnq-5-Vggs Ethyl Esters (Lovaza) 2 gm PO Q12H MORE Last Admin: 10/08/17 21:19 Dose: 2 gm Tamsulosin HCl (Flomax) 0.4 mg PO Q12 [facility] Last Admin: 10/08/17 21:19 Dose: 0.4 mg - Labs Labs: 10/08/17 04:20 10/08/17 12:16 PT 13.5 Seconds (9.8-13.1) H 10/04/17 22:20 INR 1.2 (0.9-1.2) 10/04/17 22:20 APTT 31.7 Seconds (25.6-37.1) 10/04/17 22:20
[2017-10-09] MEDS: Insulin Lispro (humaLOG) 100 Units/ml Inj SC SCH ×5 (01:13→22:40)
[2017-10-09] MEDS: Piperacillin/Tazobact 3.375 GM in Sodium Chloride 0.9% 100 ML IVPB SCH ×4 (04:16→22:30)
[2017-10-09] MEDS: Omega-3-Acid Ethyl Esters 1 GM Cap PO SCH ×2 (08:56→21:24)
[2017-10-09] MEDS ORDERED: Alum-Mag Hydrox-Simethicone Susp (30 mL) PO PRN (13:37)
--- NOTE | 2017-10-09 15:20 | CP.PCM.PCO ---
Assessment and Plan - Assessment and Plan (Free Text) Assessment: Called by RN to examine patient after episode of chest pain 1215pm. Patient complaining of chest pressure to left side 6/10 transient achy pain. Patient has been on asa, plavix statin and beta reed for hx of CAD with stents since 2016, Order for discharge has been held and will get EKG, troponin . Patient had cardiac cath on May 2017 with stent placement with Dr Baer Patient states he has adhered to medication regimen since then, Dr Baer called on consult for chest pain. Dr Cook made aware of plan.
--- NOTE | 2017-10-09 18:30 | CP.PCM.CON ---
History of Present Illness - History of Present Illness History of Present Illness: hx of CAD , HTN HPI: Review of Systems - Review of Systems Systems not reviewed;Unavailable: Acuity of Condition - Constitutional Constitutional: As Per HPI - EENT Eyes: As Per HPI Ears: As Per HPI Nose/Mouth/Throat: As Per HPI - Cardiovascular Cardiovascular: As Per HPI - Respiratory Respiratory: As Per HPI - Gastrointestinal Gastrointestinal: As Per HPI - Genitourinary Genitourinary: As Per HPI - Reproductive: Male Reproductive:Male: As Per HPI - Musculoskeletal Musculoskeletal: As Per HPI - Integumentary Integumentary: As Per HPI - Neurological Neurological: As Per HPI - Psychiatric Psychiatric: As Per HPI - Endocrine Endocrine: As Per HPI - Hematologic/Lymphatic Hematologic: As Per HPI Past Patient History - Past Medical History & Family History Past Medical History?: Yes - Past Social History Smoking Status: Never Smoked Drugs: Denies Home Situation {Lives}: With Family - CARDIAC Hx Hypercholesterolemia: Yes Hx Hypertension: Yes Hx Mitral Valve Prolapse: Yes (REGURGITATION) Hx Pacemaker: No - PULMONARY Hx Respiratory Disorders: No - NEUROLOGICAL Hx Transient Ischemic Attacks (TIA): Yes - HEENT Hx HEENT Problems: Yes Hx Cataracts: Yes - RENAL Hx Chronic Kidney Disease: No - ENDOCRINE/METABOLIC Hx Diabetes Mellitus Type 2: Yes Hx Hypothyroidism: Yes - HEMATOLOGICAL/ONCOLOGICAL Hx Blood Disorders: No - INTEGUMENTARY Hx Dermatological Problems: No - MUSCULOSKELETAL/RHEUMATOLOGICAL Hx Arthritis: Yes (Osteoarthritis) Hx Falls: No Hx Fractures: No - GASTROINTESTINAL Hx Gastritis: Yes - GENITOURINARY/GYNECOLOGICAL Hx Genitourinary Disorders: Yes Hx Prostate Problems: Yes - PSYCHIATRIC Hx Psychophysiologic Disorder: No Hx Substance Use: No - SURGICAL HISTORY Hx Surgeries: Yes Hx Cataract Extraction: Yes Hx Cardiac Catheterization: Yes Other/Comment: appendicitis?? - ANESTHESIA Hx Anesthesia: Yes Hx Anesthesia Reactions: No Hx Malignant Hyperthermia: No Has any member of the family had a problem w/ anesthesia?: No Meds Home Medications: Home Medication List Medication Instructions Recorded Confirmed Type Doxycycline Hyclate 100 mg PO BID #12 capsule 10/09/17 Rx Tamsulosin [Flomax] 0.4 mg PO Q12 #30 cap 10/09/17 Rx levoFLOXacin [Levaquin] 750 mg PO DAILY #6 tab 10/09/17 Rx Allergies/Adverse Reactions: Allergies Allergy/AdvReac Type Severity Reaction Status Date / Time No Known Allergies Allergy Verified 10/04/17 20:59 - Medications Medications: Current Medications Acetaminophen (Tylenol 325mg Tab) 650 mg PO Q4 PRN PRN Reason: Fever >100.4 F Last Admin: 10/07/17 16:05 Dose: 650 mg Acetaminophen (Tylenol 325mg Tab) 650 mg PO Q6 PRN PRN Reason: Pain, Mild (1-3) Last Admin: 10/09/17 15:21 Dose: 650 mg Al Hydrox/Mg Hydrox/Simethicone (Maalox Plus 30 Ml) 30 ml PO Q6 PRN PRN Reason: Indigestion / Heartburn Allopurinol (Zyloprim) 100 mg PO DAILY [facility] Last Admin: 10/09/17 08:59 Dose: 100 mg Aspirin (Ecotrin) 81 mg PO HS [facility] Last Admin: 10/08/17 21:19 Dose: 81 mg Atorvastatin Calcium (Lipitor) 40 mg PO DAILY [facility] Last Admin: 10/09/17 08:58 Dose: 40 mg Clopidogrel Bisulfate (Plavix) 75 mg PO DAILY [facility] Last Admin: 10/09/17 08:59 Dose: 75 mg Docusate Sodium (Colace) 100 mg PO BID [facility] Last Admin: 10/09/17 17:41 Dose: 100 mg Famotidine (Pepcid) 20 mg PO DAILY [facility] Last Admin: 10/09/17 08:59 Dose: 20 mg Heparin Sodium (Porcine) (Heparin) 5,000 units SC Q8 MORE PRN Reason: Protocol Last Admin: 10/09/17 17:41 Dose: 5,000 units Doxycycline Hyclate 100 mg/ (Sodium Chloride) 100 mls @ 100 mls/hr IVPB Q12 [facility] PRN Reason: Protocol Last Admin: 10/09/17 09:00 Dose: 100 mls/hr Piperacillin Sod/Tazobactam (Sod 3.375 gm/ Sodium Chloride) 100 mls @ 100 mls/ hr IVPB Q6 [facility] PRN Reason: Protocol Last Admin: 10/09/17 17:39 Dose: 100 mls/hr Insulin Human Lispro (Humalog) 0 units SC ACCU-CHECK MORE PRN Reason: Protocol Last Admin: 10/09/17 17:42 Dose: Not Given Ketorolac Tromethamine (Toradol) 15 mg IVP Q6 PRN PRN Reason: Pain, moderate (4-7) Last Admin: 10/08/17 00:43 Dose: 15 mg Losartan Potassium (Cozaar) 50 mg PO DAILY [facility] Last Admin: 10/09/17 08:57 Dose: 50 mg [id number] Ethyl Esters (Lovaza) 2 gm PO Q12H [facility] Last Admin: 10/09/17 08:56 Dose: 2 gm Tamsulosin HCl (Flomax) 0.4 mg PO Q12 [facility] Last Admin: 10/09/17 08:57 Dose: 0.4 mg Physical Exam - Constitutional Appears: Well - Head Exam Head Exam: ATRAUMATIC, NORMAL INSPECTION, NORMOCEPHALIC - Eye Exam Eye Exam: EOMI, Normal appearance, PERRL Pupil Exam: NORMAL ACCOMODATION, PERRL - ENT Exam ENT Exam: Mucous Membranes Moist, Normal Exam - Neck Exam Neck exam: Positive for: Normal Inspection - Respiratory Exam Respiratory Exam: Clear to Auscultation Bilateral, NORMAL BREATHING PATTERN - Cardiovascular Exam Cardiovascular Exam: REGULAR RHYTHM, +S1, +S2, Systolic Murmur - GI/Abdominal Exam GI & Abdominal Exam: Normal Bowel Sounds, Soft. absent: Tenderness - Extremities Exam Extremities exam: Positive for: normal inspection - Back Exam Back exam: NORMAL INSPECTION - Neurological Exam Neurological exam: Alert, CN II-XII Intact, Normal Gait, Oriented x3, Reflexes Normal - Psychiatric Exam Psychiatric exam: Normal Affect, Normal Mood - Skin Skin Exam: Dry, Intact, Normal Color, Warm Results - Vital Signs Recent Vital Signs: Last Vital Signs Temp 98.5 F 10/09/17 15:40 Pulse 80 10/09/17 15:40 Resp 20 10/09/17 15:40 BP 144/90 10/09/17 15:40 Pulse Ox 97 10/09/17 15:40 - Labs Result Diagrams: 10/08/17 04:20 10/08/17 12:16 Labs: Laboratory Results - last 24 hr 10/08/17 10/09/17 10/09/17 21:09 04:24 11:38 POC Glucose (mg/dL) 144 H 104 105 Troponin I 10/09/17 10/09/17 13:08 16:08 POC Glucose (mg/dL) 121 H Troponin I < 0.0120 Assessment & Plan (1) CAD (coronary artery disease) Status: Acute (2) HTN (hypertension) Status: Acute (3) Epididymitis Status: Acute (4) Sepsis Status: Acute (5) Urinary tract infection Status: Acute (6) Acute chest pain Status: Acute
[2017-10-10] MEDS: Piperacillin/Tazobact 3.375 GM in Sodium Chloride 0.9% 100 ML IVPB SCH (05:08)
[2017-10-10] MEDS ORDERED: levoFLOXacin 750 MG TAB PO SCH (09:00)
[2017-10-10] MEDS: Omega-3-Acid Ethyl Esters 1 GM Cap PO SCH (09:07)
[2017-10-10] MEDS: Insulin Lispro (humaLOG) 100 Units/ml Inj SC SCH ×2 (09:10→13:01)
[2017-10-10] MEDS ORDERED: Metoprolol Succinate 25 mg XL Tab PO SCH (09:30)
--- NOTE | 2017-10-10 14:01 | CARD ---
APPROVED REPORT EKG Measurement Heart [id number] DC [id number] <Conclusion> Normal sinus rhythm Right bundle branch block Inferior infarct, age undetermined Abnormal ECG
--- NOTE | 2017-10-10 14:26 | CARD ---
APPROVED REPORT EKG Measurement Heart [id number] HI [id number] <Conclusion> Normal sinus rhythm Right bundle branch block Inferior infarct, age undetermined Abnormal ECG
--- NOTE | 2017-10-10 15:31 | RAD ---
HISTORY: COMPARISON: 10/06/2017 TECHNIQUE: Chest PA and lateral FINDINGS: LINES AND TUBES: None. LUNG AND PLEURA: The lungs are well inflated and clear. HEART AND MEDIASTINUM: The heart is not enlarged. Atherosclerotic aortic arch calcifications are present. The hilar and mediastinal contours are within normal limits. SKELETAL STRUCTURES: The bony structures are within normal limits for the patient's age. VISUALIZED UPPER ABDOMEN: Normal. OTHER FINDINGS: None. IMPRESSION: No active pulmonary disease.
[2017-10-10 16:27] VITALS: BP 143/88; PULSE 82; RESP 16; TEMP 98.5; O2SAT 97
--- NOTE | 2017-10-10 21:00 | CARD ---
APPROVED REPORT EXAM: Two-dimensional and M-mode echocardiogram with Doppler and color Doppler. Other Information Quality : GoodRhythm : NSR INDICATION Chest Pain Surgery/Intervention Status/Post Intervention: Stent 2D DIMENSIONS IVSd1.27 (0.7-1.1cm)LVDd4.21 (3.9-5.9cm) LVOT Diameter2.09 (1.8-2.4cm)PWd0.95 (0.7-1.1cm) IVSs1.32 (0.8-1.2cm)LVDs2.86 (2.5-4.0cm) FS (%) 32.2 %PWs1.45 (0.8-1.2cm) M-Mode DIMENSIONS Left Atrium (MM)3.75 (2.5-4.0cm)IVSd1.56 (0.7-1.1cm) Aortic Root3.65 (2.2-3.7cm)LVDd4.72 (4.0-5.6cm) Aortic Cusp Exc.1.75 (1.5-2.0cm)PWd1.63 (0.7-1.1cm) IVSs2.41 cmFS (%) 52 % LVDs2.25 (2.0-3.8cm)PWs1.94 cm Mitral Valve MV E Gtjhrygx20.0cm/sMV DECEL [id number] A Krrlppcr975.9cm/s MV FRA75ujE/A ratio0.5MVA (PHT)3.00cm2 TDI Lateral E' Peak V5.70cm/sMedial E' Peak V4.73cm/sE/Lateral E'8.1 E/Medial E'9.7 Pulmonary Valve PV Peak Ufffkucr81.0cm/s LEFT VENTRICLE The left ventricle is normal size. There is mild left ventricular hypertrophy on the 2D study. The left ventricular function is normal. The left ventricular ejection fraction is - 70%. There is normal LV segmental wall motion. Transmitral Doppler flow pattern is Grade I-abnormal relaxation pattern. No left ventricle thrombus noted on this study. There is no ventricular septal defect visualized. There is no left ventricular aneurysm. There is no mass noted in the left ventricle. RIGHT VENTRICLE The right ventricle is normal size. There is normal right ventricular wall thickness. The right ventricular systolic function is normal. ATRIA The left atrium size is normal. There is no thrombus suspected in the left atrium. The right atrium size is normal. The interatrial septum is intact with no evidence for an atrial septal defect. AORTIC VALVE The aortic valve is normal in structure. There is trace aortic regurgitation. There is no aortic valvular stenosis. MITRAL VALVE The mitral valve is normal in structure. There is no evidence of mitral valve prolapse. There is no mitral valve stenosis. Mitral regurgitation is trace. TRICUSPID VALVE The tricuspid valve is normal in structure. There is mild tricuspid regurgitation. There is no tricuspid valve prolapse or vegetation. There is no tricuspid valve stenosis. PULMONIC VALVE The pulmonary valve is normal in structure. There is no pulmonic valvular regurgitation. GREAT VESSELS The aortic root is normal in size. The IVC is normal in size and collapses >50% with inspiration. PERICARDIAL EFFUSION The pericardium appears normal. There is no pleural effusion. <Conclusion> The left ventricle is normal in size. There is mild left ventricular hypertrophy on the 2D study. The left ventricular function is normal. The left ventricular ejection fraction is - 70%. The left atrium, right ventricle and right atrium are normal in size. The mitral, aortic and tricuspid valves are normal. There is trace mitral regurgitation, trace aortic regurgitation and mild tricuspid regurgitation.
--- NOTE | 2017-10-11 08:50 | CP.PCM.PN ---
Subjective - Date & Time of Evaluation Date of Evaluation: 10/09/17 Time of Evaluation: 15:25 Objective - Vital Signs/Intake and Output Vital Signs (last 24 hours): Temp Pulse Resp BP Pulse Ox 98.5 F 82 16 143/88 97 10/10/17 16:26 10/10/17 16:26 10/10/17 16:26 10/10/17 16:26 10/10/17 16:26 - Labs Labs: 10/08/17 04:20 10/08/17 12:16 PT 13.5 Seconds (9.8-13.1) H 10/04/17 22:20 INR 1.2 (0.9-1.2) 10/04/17 22:20 APTT 31.7 Seconds (25.6-37.1) 10/04/17 22:20
--- NOTE | 2017-10-11 08:52 | CP.PCM.DIS ---
Provider - Provider Date of Admission: 10/05/17 00:10 Attending physician: Marito Cook MD Time Spent in preparation of Discharge (in minutes): 25 Hospital Course - Lab Results Lab Results: Micro Results 10/05/17 00:30 Blood Blood Culture - Final NO GROWTH AFTER 5 DAYS 10/05/17 00:30 Blood Gram Stain - Final TEST NOT PERFORMED 10/05/17 00:00 Blood Blood Culture - Final NO GROWTH AFTER 5 DAYS 10/05/17 00:00 Blood Gram Stain - Final TEST NOT PERFORMED 10/04/17 05:47 Urine Urine Culture - Final No Growth (<1,000 CFU/ML) Most Recent Lab Values WBC 9.6 K/uL (4.8-10.8) D 10/08/17 04:20 RBC 3.83 Mil/uL (4.40-5.90) L 10/08/17 04:20 Hgb 12.0 g/dL (12.0-18.0) 10/08/17 04:20 Hct 34.8 % (35.0-51.0) L 10/08/17 04:20 MCV 90.9 fl (80.0-94.0) 10/08/17 04:20 MCH 31.2 pg (27.0-31.0) H 10/08/17 04:20 MCHC 34.4 g/dL (33.0-37.0) 10/08/17 04:20 RDW 13.3 % (11.5-14.5) 10/08/17 04:20 Plt Count 335 K/uL (130-400) D 10/08/17 04:20 MPV 8.4 fl (7.2-11.7) 10/08/17 04:20 Neut % (Auto) 58.1 % (50.0-75.0) 10/08/17 04:20 Lymph % (Auto) 28.8 % (20.0-40.0) 10/08/17 04:20 [place] % (Auto) 10.6 % (0.0-10.0) H 10/08/17 04:20 Eos % (Auto) 2.1 % (0.0-4.0) 10/08/17 04:20 Baso % (Auto) 0.4 % (0.0-2.0) 10/08/17 04:20 Neut # (Auto) 5.6 K/uL (1.8-7.0) 10/08/17 04:20 Lymph # (Auto) 2.8 K/uL (1.0-4.3) 10/08/17 04:20 [place] # (Auto) 1.0 K/uL (0.0-0.8) H 10/08/17 04:20 Eos # (Auto) 0.2 K/uL (0.0-0.7) 10/08/17 04:20 Baso # (Auto) 0.0 K/uL (0.0-0.2) 10/08/17 04:20 Neutrophils % (Manual) 80 % (42-75) H 10/04/17 22:20 Band Neutrophils % 3 % (0-2) H 10/04/17 22:20 Lymphocytes % (Manual) 11 % (20-50) L 10/04/17 22:20 Monocytes % (Manual) 6 % (0-10) 10/04/17 22:20 Toxic Granulation Present 10/04/17 22:20 Platelet Estimate Normal (NORMAL) 10/04/17 22:20 Hypochromasia (manual) Slight 10/04/17 22:20 PT 13.5 Seconds (9.8-13.1) H 10/04/17 22:20 INR 1.2 (0.9-1.2) 10/04/17 22:20 APTT 31.7 Seconds (25.6-37.1) 10/04/17 22:20 pO2 59 mm/Hg (30-55) H 10/05/17 00:58 VBG pH 7.41 (7.32-7.43) 10/05/17 00:58 VBG pCO2 35 mmHg (40-60) L 10/05/17 00:58 VBG HCO3 23.3 mmol/L 10/05/17 00:58 VBG Total CO2 23.3 mmol/L (22-28) 10/05/17 00:58 VBG O2 Sat (Calc) 95.5 % (40-65) H 10/05/17 00:58 VBG Base Excess -1.9 mmol/L (0.0-2.0) L 10/05/17 00:58 VBG Potassium 4.0 mmol/L (3.6-5.2) 10/05/17 00:58 Sodium 135.0 mmol/L (132-148) 10/05/17 00:58 Chloride 103.0 mmol/L (98-107) 10/05/17 00:58 Glucose 121 mg/dL (75-110) H 10/05/17 00:58 Lactate 1.5 mmol/L (0.7-2.1) 10/05/17 00:58 FiO2 21.0 % 10/05/17 00:58 Sodium 141 mmol/l (132-148) 10/08/17 12:16 Potassium 4.1 MMOL/L (3.6-5.0) 10/08/17 12:16 Chloride 103 mmol/L (98-107) 10/08/17 12:16 Carbon Dioxide 26 mmol/L (22-30) 10/08/17 12:16 Anion Gap 16 (10-20) 10/08/17 12:16 BUN 18 mg/dl (9-20) 10/08/17 12:16 Creatinine 1.2 mg/dl (0.8-1.5) 10/08/17 12:16 Est GFR ( Amer) > 60 10/08/17 12:16 Est GFR (Non-Af Amer) 59 10/08/17 12:16 POC Glucose (mg/dL) 127 mg/dL (65-110) H 10/10/17 15:56 Random Glucose 122 mg/dL (75-110) H 10/08/17 12:16 Hemoglobin A1c 6.3 % (4.2-6.5) 10/05/17 09:15 Calcium 9.0 mg/dL (8.4-10.2) 10/08/17 12:16 Total Bilirubin 0.6 mg/dl (0.2-1.3) 10/05/17 09:15 AST 37 U/L (17-59) 10/05/17 09:15 ALT 41 U/L (21-72) 10/05/17 09:15 Alkaline Phosphatase 100 U/L (38-126) 10/05/17 09:15 Troponin I < 0.0120 ng/mL (0.00-0.120) 10/09/17 20:32 Total Protein 6.9 G/DL (6.3-8.2) 10/05/17 09:15 Albumin 3.3 g/dL (3.5-5.0) L 10/05/17 09:15 Globulin 3.6 gm/dL (2.2-3.9) 10/05/17 09:15 Albumin/Globulin Ratio 0.9 (1.0-2.1) L 10/05/17 09:15 Triglycerides 174 mg/DL (0-149) H D 10/05/17 09:15 Cholesterol 160 mg/dL (0-199) 10/05/17 09:15 LDL Cholesterol Direct 74 mg/dL (0-129) 10/05/17 09:15 HDL Cholesterol 15 MG/DL (30-70) L 10/05/17 09:15 Venous Blood Potassium 4.0 mmol/L (3.6-5.2) 10/05/17 00:58 Urine Color Yellow (YELLOW) 10/04/17 21:50 Urine Clarity Slighty-cloudy (Clear) 10/04/17 21:50 Urine pH 6.0 (5.0-8.0) 10/04/17 21:50 Ur Specific [place] 1.013 (1.003-1.030) 10/04/17 21:50 Urine Protein Negative mg/dL (NEGATIVE) 10/04/17 21:50 Urine Glucose (UA) Neg mg/dL (Normal) 10/04/17 21:50 Urine Ketones Negative mg/dL (NEGATIVE) 10/04/17 21:50 Urine Blood Small (NEGATIVE) 10/04/17 21:50 Urine Nitrate Negative (NEGATIVE) 10/04/17 21:50 Urine Bilirubin Negative (NEGATIVE) 10/04/17 21:50 Urine Urobilinogen 0.2-1.0 mg/dL (0.2-1.0) 10/04/17 21:50 Ur Leukocyte Esterase Small Anya/uL (Negative) 10/04/17 21:50 Urine RBC (Auto) 3 /hpf (0-3) 10/04/17 21:50 Urine Microscopic WBC 21 /hpf (0-5) H 10/04/17 21:50 Urine Bacteria Occ (<OCC) H 10/04/17 21:50 HIV-1 Ab Rapid Screen Non reactive (NON REAC) 10/05/17 19:03 Discharge Exam - Head Exam Head Exam: ATRAUMATIC, NORMAL INSPECTION, NORMOCEPHALIC Discharge Plan - Discharge Medications Prescriptions: Doxycycline Hyclate 100 mg PO BID #12 capsule Tamsulosin [Flomax] 0.4 mg PO Q12 #30 cap levoFLOXacin [Levaquin] 750 mg PO DAILY #6 tab - Follow Up Plan Condition: FAIR Disposition: AGAINST MEDICAL ADVICE
== END 2017-10-10 18:30 | disposition left against medical advice (07) | DRG 872 ==
LOC: H.ER 20:03 → H.ERHOLD 10-05 00:10 → H.TEL 10-05 05:14
PROVIDERS: ADMIT Internal Medicine; ATTEND Internal Medicine
DX: A41.9 Sepsis, unspecified organism (principal); N45.3 Epididymo-orchitis; E11.9 Type 2 diabetes mellitus without complications; I34.1 Nonrheumatic mitral (valve) prolapse; R07.9 Chest pain, unspecified; E03.9 Hypothyroidism, unspecified; I10 Essential (primary) hypertension; I25.10 Atherosclerotic heart disease of native coronary artery without angina pectoris; E78.00 Pure hypercholesterolemia, unspecified; N50.89 Other specified disorders of the male genital organs; N40.0 Benign prostatic hyperplasia without lower urinary tract symptoms; M19.90 Unspecified osteoarthritis, unspecified site; Z95.5 Presence of coronary angioplasty implant and graft; Z86.73 Personal history of transient ischemic attack (TIA), and cerebral infarction without residual deficits; Z53.21 Procedure and treatment not carried out due to patient leaving prior to being seen by health care provider

== ENCOUNTER 2018-09-30 16:01 | Inpatient (IN) | payer MEDICARE ==
[2018-09-30 17:46] LABS: PROTHROMBIN TIME 11.8 Seconds (9.8-13.1)
[2018-09-30 17:48] LABS: PARTIAL THROMBOPLASTIN TIME 30.9 Seconds (25.6-37.1)
[2018-09-30 18:00] LABS: ALB/GLOB RATIO 1.2 (1.0-2.1); ALT/SGPT 27 U/L (21-72); AST/SGOT 23 U/L (17-59); BLOOD UREA NITROGEN 40 mg/dl (9-20); CALCIUM 9.5 mg/dL (8.4-10.2); GFR NON-AFRICAN AMERICAN 37; LIPASE 113 U/L (23-300)
[2018-09-30 18:04] LABS: B-TYPE NATRIURETIC PEPTIDE 427 pg/ml (0-900)
[2018-09-30 18:05] LABS: BASO % 0.2 % (0.0-2.0); EOS # 0.1 K/uL (0.0-0.7); EOS % 1.4 % (0.0-4.0); HEMOGLOBIN 13.5 g/dL (12.0-18.0); LYMPH # 1.8 K/uL (1.0-4.3); LYMPH % 21.7 % (20.0-40.0); MEAN CELL VOLUME 92.8 fl (80.0-94.0); MEAN CORPUSCULAR HEMOGLOBIN 31.3 pg (27.0-31.0); MEAN CORPUSCULAR HGB CONC 33.7 g/dL (33.0-37.0); MEAN PLATELET VOLUME 10.7 fl (7.2-11.7); MONO # 0.7 K/uL (0.0-0.8); MONO % 8.6 % (0.0-10.0); NEUT # 5.6 K/uL (1.8-7.0); NEUT % 68.1 % (50.0-75.0); NRBC % 0.1 % (0.0-0.0); RBC 4.3 Mil/uL (4.40-5.90); WHITE BLOOD COUNT 8.3 K/uL (4.8-10.8)
--- NOTE | 2018-09-30 18:05 | CT ---
Date of service: 09/30/2018 PROCEDURE: CT HEAD WITHOUT CONTRAST. HISTORY: headache dizzy COMPARISON: None available. TECHNIQUE: Axial computed tomography images were obtained through the head/brain without intravenous contrast. Radiation dose: Total exam DLP = 813.06 mGy-cm. This CT exam was performed using one or more of the following dose reduction techniques: Automated exposure control, adjustment of the mA and/or kV according to patient size, and/or use of iterative reconstruction technique. FINDINGS: HEMORRHAGE: No intracranial hemorrhage. BRAIN: Diffuse atrophy with prominence of the ventricles and sulci noted. No mass effect or edema. Intracranial atherosclerosis. Scattered periventricular and subcortical white matter hypodensities, which are nonspecific, but often seen with chronic microvascular ischemic disease. Please note that MRI with diffusion imaging is more sensitive in the detection of acute ischemic event. VENTRICLES: No hydrocephalus. CALVARIUM: Unremarkable. PARANASAL SINUSES: Mucosal thickening of the ethmoid air cells. MASTOID AIR CELLS: Unremarkable as visualized. No inflammatory changes. OTHER FINDINGS: Partial opacification of the left external auditory canals, likely cerumen. IMPRESSION: No acute intracranial pathology identified. Mucosal thickening of the ethmoid air cells; correlate clinically for sinusitis.
[2018-09-30] MEDS ORDERED: Amiodarone 150mg/3 ml vial ONE ×2 (18:48→18:57)
[2018-09-30 18:55] LABS: URINE BILIRUBIN NEGATIVE (NEGATIVE); URINE BLOOD NEGATIVE (NEGATIVE); URINE CLARITY SLIGHTY-CLOUDY (Clear); URINE COLOR YELLOW (YELLOW); URINE GLUCOSE (UA) NEG (NEGATIVE); URINE LEUKOCYTE ESTERASE NEG Leu/uL (Negative); URINE PROTEIN NEGATIVE (NEGATIVE); URINE UROBILINOGEN 0.2-1.0 mg/dL (0.2-1.0)
[2018-09-30] MEDS ORDERED: Amiodarone 450 MG in Sodium Chloride 0.9% 250 ML IVPB SCH (19:00)
--- NOTE | 2018-09-30 20:41 | ED PDOC ---
HPI: SOB/CHF/COPD Time Seen by Provider: 09/30/18 16:43 Chief Complaint (Nursing): Shortness Of Breath Chief Complaint (Provider): dizziness, SOB History Per: Passenger Booking Clerk ([email or web address] [id number]) History/Exam Limitations: no limitations Onset/Duration Of Symptoms: Days (4), Intermittent Episodes Current Symptoms Are (Timing): Intermittent Episodes Exacerbating Factor(s): Exertion Severity: Moderate Associated Symptoms: Heart Racing, Dizziness, Light-headedness. denies: Fever, Chills, Chest Pain, Bloody Cough, Productive Cough, Ankle/Leg Swelling, Musle Spasms In Hands Or Feet Similar Symptoms Previously: + Additional Complaint(s): 77yo male hx CAD, DM, HTN, loop recorder implanted about 6months ago, presents c/o dizziness, palpitations and headache ongoing intermittently for 3-4 days. States ran out of [place] about a week ago, unsure if related. Past Medical History Vital Signs: Last Vital Signs Temp 98.2 F 09/30/18 16:17 Pulse 96 H 09/30/18 19:05 Resp 15 09/30/18 19:05 BP 123/56 L 09/30/18 19:05 Pulse Ox 96 09/30/18 19:05 - Medical History PMH: Arthritis (Osteoarthritis), CAD (s/p stent), Diabetes, Gastritis, HTN, Hypercholesterolemia, Hypothyroidism, Mitral Valve Prolapse (REGURGITATION), TIA Denies: Fractures, HIV, Chronic Kidney Disease - Surgical History Surgical History: Denies: Pacemaker - Family History Family History: States: Unknown Family Hx - Home Medications Home Medications: Ambulatory Orders Medication Instructions Recorded RX: Aspirin [Ecotrin] 81 mg PO DAILY 06/20/17 RX: Clopidogrel [Plavix] 75 mg PO DAILY 06/20/17 RX: Furosemide [Lasix] 20 mg PO DAILY 06/20/17 Doxazosin Mesylate 8 mg PO DAILY 09/30/18 Famotidine [Pepcid] 40 mg PO DAILY 09/30/18 Levothyroxine [Synthroid] 50 mcg PO DAILY 09/30/18 Losartan/Hydrochlorothiazide 1 tab PO DAILY 09/30/18 [Hyzaar 100-12.5 Tablet] Metoprolol Tartrate [Lopressor] 50 mg PO Q12 09/30/18 Multivitamin/Iron/Folic Acid 1 tab PO DAILY 09/30/18 [Centrum Complete Multivit Tab] RX: Calcitriol [Rocaltrol] 0.5 mcg PO DAILY 09/30/18 RX: Cilostazol [Pletal] 100 mg PO Q12 09/30/18 Rosuvastatin Calcium [Crestor] 20 mg PO HS 09/30/18 - Allergies Allergies/Adverse Reactions: Allergies Allergy/AdvReac Type Severity Reaction Status Date / Time No Known Allergies Allergy Verified 09/30/18 23:12 - Laboratory Results Result Diagrams: 10/02/18 04:20 10/02/18 04:20 Lab Results: PT 11.8 Seconds (9.8-13.1) 09/30/18 17:05 INR 1.0 09/30/18 17:05 APTT 30.9 Seconds (25.6-37.1) 09/30/18 17:05 Troponin I < 0.0120 ng/mL (0.00-0.120) 09/30/18 17:05 NT-Pro-B Natriuret Pep 427 pg/ml (0-900) 09/30/18 17:05 Total Bilirubin 0.7 mg/dl (0.2-1.3) 09/30/18 17:05 AST 23 U/L (17-59) 09/30/18 17:05 ALT 27 U/L (21-72) 09/30/18 17:05 Alkaline Phosphatase 59 U/L (38-126) 09/30/18 17:05 Total Protein 7.3 G/DL (6.3-8.2) 09/30/18 17:05 Albumin 4.0 g/dL (3.5-5.0) 09/30/18 17:05 Globulin 3.3 gm/dL (2.2-3.9) 09/30/18 17:05 Albumin/Globulin Ratio 1.2 (1.0-2.1) 09/30/18 17:05 Lipase 113 U/L (23-300) 09/30/18 17:05 Urine Color Yellow (YELLOW) 09/30/18 18:42 Urine Clarity Slighty-cloudy (Clear) 09/30/18 18:42 Urine pH 5.0 (5.0-8.0) 09/30/18 18:42 Ur Specific [place] 1.014 (1.003-1.030) 09/30/18 18:42 Urine Protein Negative mg/dL (NEGATIVE) 09/30/18 18:42 Urine Glucose (UA) Neg mg/dL (NEGATIVE) 09/30/18 18:42 Urine Ketones Negative mg/dL (NEGATIVE) 09/30/18 18:42 Urine Blood Negative (NEGATIVE) 09/30/18 18:42 Urine Nitrate Negative (NEGATIVE) 09/30/18 18:42 Urine Bilirubin Negative (NEGATIVE) 09/30/18 18:42 Urine Urobilinogen 0.2-1.0 mg/dL (0.2-1.0) 09/30/18 18:42 Ur Leukocyte Esterase Neg Anya/uL (Negative) 09/30/18 18:42 Urine RBC (Auto) 3 /hpf (0-3) 09/30/18 18:42 Urine Microscopic WBC 3 /hpf (0-5) 09/30/18 18:42 Hyaline Casts 6-10 /hpf (0-2) H 09/30/18 18:42 - ECG O2 Sat by Pulse Oximetry: 96 - Critical Care Total Time (In Min): 40 Medical Decision Making Medical Decision Making: 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 Rhythm strip 12L obtained likely intermittent bundle branch block. But remains tachycardic, EKGs reviewed by Dr Baer who agreed w amiodarone and ICU admit Admit Dr Joey maxwell negative BP remained stable CT brain no acute bleed or infarct Admit ICU given intermittent symptomatic tachyarrythmia likely new onset. Disposition - Clinical Impression Clinical Impression: Tachyarrhythmia, Dizziness - Patient ED Disposition Is Patient to be Admitted: Yes - Disposition Disposition Time: 18:30 Condition: FAIR - Pt Status Changed To: Hospital Disposition Of: Inpatient - Admit Certification Admit to Inpatient:: After my assessment, the patient will require hospitalization for at least two midnights. This is because of the severity of symptoms shown, intensity of services needed, and/or the medical risk in this patient being treated as an outpatient.
[2018-09-30] MEDS ORDERED: Glucagon Recombinant 1 mg Inj IM PRN (21:45)
[2018-09-30] MEDS ORDERED: Dextrose 50% SYRINGE Inj (50 ml) IV PRN (21:45)
[2018-09-30] MEDS: Amiodarone 450 MG in Sodium Chloride 0.9% 250 ML IV SCH (22:05)
[2018-09-30] MEDS: Insulin Lispro (humaLOG) 100 Units/ml Inj SC SCH (22:50)
--- NOTE | 2018-09-30 22:59 | CP.PCM.CON ---
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 HPI: This is a 77 y/o male with MHx significant for CAD, DM2, HTN, HLD, hypothyroid, MVP, and prior TIAs who comes in today with multiple complaints, the principal ones being episodes of SOB and a sense of anxiety/heart palpitations. Has been having these symptoms intermittently today he states. Denies chest pain, denies syncope or LOC. Denies f/c/n/v/d. 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 Dec Mkr: Ruth Loo Past Patient History - Past Medical History & Family History Past Medical History?: Yes - Past Social History Smoking Status: Never Smoked - CARDIAC Hx Cardiac Disorders: Yes - PULMONARY Hx Respiratory Disorders: Yes - NEUROLOGICAL Hx Neurological Disorder: Yes - HEENT Hx HEENT Problems: Yes - RENAL Hx Chronic Kidney Disease: No - ENDOCRINE/METABOLIC Hx Endocrine Disorders: Yes - HEMATOLOGICAL/ONCOLOGICAL Hx Human Immunodeficiency Virus (HIV): No - INTEGUMENTARY Hx Dermatological Problems: No - MUSCULOSKELETAL/RHEUMATOLOGICAL Hx Musculoskeletal Disorders: Yes - GASTROINTESTINAL Hx Gastritis: Yes - GENITOURINARY/GYNECOLOGICAL Hx Genitourinary Disorders: Yes - PSYCHIATRIC Hx Psychophysiologic Disorder: No Hx Substance Use: No - SURGICAL HISTORY Hx Surgeries: Yes Hx Cataract Extraction: Yes Hx Cardiac Catheterization: Yes Other/Comment: appendicitis?? - ANESTHESIA Hx Anesthesia: Yes Hx Anesthesia Reactions: No Hx Malignant Hyperthermia: No Meds Allergies/Adverse Reactions: Allergies Allergy/AdvReac Type Severity Reaction Status Date / Time No Known Allergies Allergy Verified 10/04/17 20:59 - Medications Medications: Current Medications Aspirin (Ecotrin) 81 mg PO DAILY MORE Calcitriol (Rocaltrol) 0.5 mcg PO DAILY MORE Cilostazol (Pletal) 100 mg PO Q12 MORE Clopidogrel Bisulfate (Plavix) 75 mg PO DAILY MORE Dextrose (Dextrose 50% Inj) 0 ml IV STAT PRN; Protocol PRN Reason: Hypoglycemia Protocol Dextrose (Glutose 15) 0 gm PO ONCE PRN; Protocol PRN Reason: Hypoglycemia Protocol Furosemide (Lasix) 20 mg PO DAILY [facility] Glucagon (Glucagen Diagnostic Kit) 0 mg IM STAT PRN; Protocol PRN Reason: Hypoglycemia Protocol Heparin Sodium (Porcine) (Heparin) 5,000 units SC Q8 [facility]; Protocol Home Med (Doxazosin Mesylate [Doxazosin Mesylate]) 8 mg PO DAILY [facility] Home Med (Famotidine [Pepcid]) 40 mg PO DAILY [facility] Home Med (Multivitamin/Iron/Folic Acid [Centrum Complete Multivit Tab]) 1 tab PO DAILY [facility] Home Med (Rosuvastatin Calcium [Crestor]) 20 mg PO HS [facility] Amiodarone HCl 150 mg/ (Dextrose) 103 mls @ 618 mls/hr IVPB ONCE ONE; Protocol Stop: 09/30/18 21:17 Last Admin: 09/30/18 22:13 Dose: Not Given Amiodarone HCl 450 mg/ Sodium (Chloride) 259 mls @ 34.53 mls/hr IV .Q7H31M [facility]; Protocol Last Admin: 09/30/18 22:05 Dose: 34.53 mls/hr Insulin Human Lispro (Humalog) 0 units SC ACHS [facility]; Protocol Levothyroxine Sodium (Synthroid) 50 mcg PO DAILY [facility] Metoprolol Tartrate (Lopressor) 50 mg PO Q12 [facility] Physical Exam - Constitutional Appears: No Acute Distress - Head Exam Head Exam: ATRAUMATIC, NORMOCEPHALIC - Eye Exam Eye Exam: EOMI, PERRL - ENT Exam ENT Exam: Mucous Membranes Moist - Neck Exam Neck exam: Positive for: Full Rom - Respiratory Exam Respiratory Exam: Clear to Auscultation Bilateral, NORMAL BREATHING PATTERN - Cardiovascular Exam Cardiovascular Exam: Tachycardia, Irregular Rhythm, +S1, +S2 - GI/Abdominal Exam GI & Abdominal Exam: Normal Bowel Sounds, Soft - Extremities Exam Extremities exam: Positive for: full ROM, normal inspection - Neurological Exam Neurological exam: Alert, CN II-XII Intact, Oriented x3 - Psychiatric Exam Psychiatric exam: Normal Affect, Normal Mood - Skin Skin Exam: Dry, Warm Results - Vital Signs Recent Vital Signs: Last Vital Signs Temp 98.3 F 09/30/18 21:46 Pulse 102 H 09/30/18 22:15 Resp 15 09/30/18 22:15 BP 119/67 09/30/18 22:15 Pulse Ox 96 09/30/18 22:05 - Labs Result Diagrams: 09/30/18 17:05 09/30/18 17:05 Labs: Laboratory Results - last 24 hr 09/30/18 09/30/18 09/30/18 17:05 17:05 17:05 WBC 8.3 RBC 4.30 L Hgb 13.5 Hct 39.9 MCV 92.8 MCH 31.3 H MCHC 33.7 RDW 13.0 Plt Count 170 D MPV 10.7 Neut % (Auto) 68.1 Lymph % (Auto) 21.7 [place] % (Auto) 8.6 Eos % (Auto) 1.4 Baso % (Auto) 0.2 Neut # (Auto) 5.6 Lymph # (Auto) 1.8 [place] # (Auto) 0.7 Eos # (Auto) 0.1 Baso # (Auto) 0.0 PT 11.8 INR 1.0 APTT 30.9 Sodium 141 Potassium 3.7 Chloride 99 Carbon Dioxide 24 Anion Gap 22 H BUN 40 H Creatinine 1.8 H Est GFR ( Amer) 44 Est GFR (Non-Af Amer) 37 POC Glucose (mg/dL) Random Glucose 115 H Calcium 9.5 Phosphorus 4.5 Magnesium 1.7 Total Bilirubin 0.7 AST 23 ALT 27 Alkaline Phosphatase 59 Troponin I < 0.0120 NT-Pro-B Natriuret Pep 427 Total Protein 7.3 Albumin 4.0 Globulin 3.3 Albumin/Globulin Ratio 1.2 Lipase 113 TSH 3rd Generation 4.09 Urine Color Urine Clarity Urine pH Ur Specific [place] Urine Protein Urine Glucose (UA) Urine Ketones Urine Blood Urine Nitrate Urine Bilirubin Urine Urobilinogen Ur Leukocyte Esterase Urine RBC (Auto) Urine Microscopic WBC Hyaline Casts Influenza Typ A,B (EIA) 09/30/18 09/30/18 09/30/18 17:05 17:23 18:42 WBC RBC Hgb Hct MCV MCH MCHC RDW Plt Count MPV Neut % (Auto) Lymph % (Auto) [place] % (Auto) Eos % (Auto) Baso % (Auto) Neut # (Auto) Lymph # (Auto) [place] # (Auto) Eos # (Auto) Baso # (Auto) PT INR APTT Sodium Potassium Chloride Carbon Dioxide Anion Gap BUN Creatinine Est GFR ( Amer) Est GFR (Non-Af Amer) POC Glucose (mg/dL) 82 Random Glucose Calcium Phosphorus Magnesium Total Bilirubin AST ALT Alkaline Phosphatase Troponin I NT-Pro-B Natriuret Pep Total Protein Albumin Globulin Albumin/Globulin Ratio Lipase TSH 3rd Generation Urine Color Yellow Urine Clarity Slighty-cloudy Urine pH 5.0 Ur Specific [place] 1.014 Urine Protein Negative Urine Glucose (UA) Neg Urine Ketones Negative Urine Blood Negative Urine Nitrate Negative Urine Bilirubin Negative Urine Urobilinogen 0.2-1.0 Ur Leukocyte Esterase Neg Urine RBC (Auto) 3 Urine Microscopic WBC 3 Hyaline Casts 6-10 H Influenza Typ A,B (EIA) Negative for flu a/b 09/30/18 21:50 WBC RBC Hgb Hct MCV MCH MCHC RDW Plt Count MPV Neut % (Auto) Lymph % (Auto) [place] % (Auto) Eos % (Auto) Baso % (Auto) Neut # (Auto) Lymph # (Auto) [place] # (Auto) Eos # (Auto) Baso # (Auto) PT INR APTT Sodium Potassium Chloride Carbon Dioxide Anion Gap BUN Creatinine Est GFR ( Amer) Est GFR (Non-Af Amer) POC Glucose (mg/dL) 128 H Random Glucose Calcium Phosphorus Magnesium Total Bilirubin AST ALT Alkaline Phosphatase Troponin I NT-Pro-B Natriuret Pep Total Protein Albumin Globulin Albumin/Globulin Ratio Lipase TSH 3rd Generation Urine Color Urine Clarity Urine pH Ur Specific [place] Urine Protein Urine Glucose (UA) Urine Ketones Urine Blood Urine Nitrate Urine Bilirubin Urine Urobilinogen Ur Leukocyte Esterase Urine RBC (Auto) Urine Microscopic WBC Hyaline Casts Influenza Typ A,B (EIA) - EKG Data EKG Interpreted by: Myself Rate: Tachycardia - EKG Data EKG comments: extended strip shows intermittent periods of tachycardia with what appears to be wide complex; rhythm appears to be irregular however. When rate is normal, there appears to be a LBBB. - Imaging and Cardiology Chest x-ray Status: Image reviewed by me (Loop recorder visualized, ) Assessment & Plan (1) Wide-complex tachycardia Assessment and Plan: 77 y/o male with multiple chronic medical problems including CAD, who is being admitted for what appears to be a WC tachycardia, though often irregular. When rate normal, there appears to be a LBBB. Patient also with worsening creatinine compared to prior admissions. 1) WC tachycardia -- patient is being started on amio gtt -Serial trops -Make sure K/Mg WNL 2) A o CRF -- worsening Cr to 1.8 from 1.2 -Hold losartan/HCTZ overnight -Repeat BMP in AM, if Cr worse, also consider holding lasix 3) SC Heparin for DVT PPx Status: Acute (2) [id number] renal failure Status: Acute (3) DVT prophylaxis Status: Acute
[2018-09-30 23:12] VITALS: BMI 30.5
[2018-10-01 05:23] LABS: BASO % 0.3 % (0.0-2.0); EOS # 0.3 K/uL (0.0-0.7); EOS % 4.5 % (0.0-4.0); HEMOGLOBIN 13.6 g/dL (12.0-18.0); LYMPH # 2.9 K/uL (1.0-4.3); LYMPH % 37.2 % (20.0-40.0); MEAN CELL VOLUME 93.8 fl (80.0-94.0); MEAN CORPUSCULAR HEMOGLOBIN 31.8 pg (27.0-31.0); MEAN CORPUSCULAR HGB CONC 33.9 g/dL (33.0-37.0); MEAN PLATELET VOLUME 10.4 fl (7.2-11.7); MONO # 0.7 K/uL (0.0-0.8); MONO % 8.9 % (0.0-10.0); NEUT # 3.8 K/uL (1.8-7.0); NEUT % 49.1 % (50.0-75.0); NRBC % 0.1 % (0.0-0.0); RBC 4.27 Mil/uL (4.40-5.90); RED CELL DISTRIBUTION WIDTH 12.9 % (11.5-14.5); WHITE BLOOD COUNT 7.7 K/uL (4.8-10.8)
[2018-10-01 05:38] LABS: CALCIUM 9.3 mg/dL (8.4-10.2)
[2018-10-01] MEDS: Levothyroxine 50 MCG TAB PO SCH (06:20)
[2018-10-01] MEDS: Amiodarone 450 MG in Sodium Chloride 0.9% 250 ML IV SCH (07:22)
[2018-10-01] MEDS: Multivitamin With Minerals Tab PO SCH (08:25)
[2018-10-01] MEDS: Cilostazol 100 mg Tab UD PO SCH ×2 (08:26→20:46)
[2018-10-01] MEDS: Insulin Lispro (humaLOG) 100 Units/ml Inj SC SCH ×4 (08:29→22:29)
[2018-10-01] MEDS ORDERED: DOXAZOSIN MESYLATE 8 MG PO SCH (09:00)
[2018-10-01] MEDS ORDERED: Patient's Own Med (Losartan/Hydrochlorothiazide [Hyzaar 100-12.5 Tablet] 1 TAB) PO SCH (09:00)
[2018-10-01] MEDS ORDERED: Patient's Own Med (Multivitamin/Iron/Folic Acid [Centrum Complete Multivit Tab] 1 TAB) PO SCH (09:00)
--- NOTE | 2018-10-01 09:11 | RAD ---
Date of service: 09/30/2018 HISTORY: chest pain/ r/o infiltrate COMPARISON: No prior. TECHNIQUE: Chest PA and lateral FINDINGS: LUNGS: No active pulmonary disease. PLEURA: No significant pleural effusion identified. No pneumothorax apparent. CARDIOVASCULAR: Calcific atherosclerotic changes are seen related to the thoracic aorta. Normal cardiac size. No pulmonary vascular congestion. Event recorder noted at the left chest wall anteriorly. OSSEOUS STRUCTURES: No significant abnormalities. VISUALIZED UPPER ABDOMEN: Normal. OTHER FINDINGS: None. IMPRESSION: No interval acute cardiopulmonary disease appreciated. Interval event recorder noted at the left chest wall.
--- NOTE | 2018-10-01 12:36 | CARD ---
APPROVED REPORT Date of service: 09/30/2018 EKG Measurement Heart [id number] <Conclusion> Sinus tachycardia with frequent premature ventricular and atrial complexes Right bundle branch block Possible Inferior infarct, age undetermined Abnormal ECG
--- NOTE | 2018-10-01 12:38 | CARD ---
APPROVED REPORT Date of service: 09/30/2018 EKG Measurement Heart [id number] <Conclusion> Sinus tachycardia with occasional premature ventricular complexes Right Bundle Branch Block Nonspecific ST-T changes Abnormal ECG
--- NOTE | 2018-10-01 12:43 | CP.PCM.CON ---
<RamoPasquale - Last Filed: 10/01/18 18:25> History of Present Illness - History of Present Illness History of Present Illness: Pasquale Ralph DO PGY1 - Internal Medicine Community Health Agent - Cardiology Consult Note Patient is a 77-year-old male with a past medical history significant for CAD, type II DM, HTN, HLD, hypothyroidism, TIA. Presented to [place] ED on 09/30 with complaints of shortness of breath and palpitations. Cardiology was consulted for evaluation of palpitations, and shortness of breath. Patient was seen by Dr. Baer during previous admissions. Patient reported that two weeks ago he quit taking his Ranexa due to insufficient refills. He reported 3-4 days prior to admission he began having complaints of blurry vision, dizziness, weakness as well as palpitations with associated shortness of breath. He reported that rest alleviated symptoms, and over the past three days his symptoms have been worsening. He denies any loss of consciousness or false, denies any history of tobacco use. Reports that he is active at baseline denies any decrease in energy or activity level lately. He denies the symptoms prior to admission. At time of evaluation patient does not complain of any chest pain, palpitations, shortness of breath. He reports that his symptoms have significantly improved since time of admission. Remainder of 12 system ROS is otherwise negative Previous cardiogram performed September 2017 shows ejection fraction 70%, with grade one abnormal relaxation. Patient has undergone cardiac catheterization in March 2017 which showed RCA and left circumflex lesions. Of note patient does have a loop recorder implanted in April 2018. Review of Systems - Review of Systems All systems: reviewed and no additional remarkable complaints except Review of Systems: as per HPI Past Patient History - Past Medical History & Family History Past Medical History?: Yes - Past Social History Smoking Status: Never Smoked - CARDIAC Hx Cardiac Disorders: Yes - PULMONARY Hx Respiratory Disorders: Yes - NEUROLOGICAL Hx Neurological Disorder: Yes - HEENT Hx HEENT Problems: Yes - RENAL Hx Chronic Kidney Disease: No - ENDOCRINE/METABOLIC Hx Endocrine Disorders: Yes - HEMATOLOGICAL/ONCOLOGICAL Hx Human Immunodeficiency Virus (HIV): No - INTEGUMENTARY Hx Dermatological Problems: No - MUSCULOSKELETAL/RHEUMATOLOGICAL Hx Musculoskeletal Disorders: Yes - GASTROINTESTINAL Hx Gastritis: Yes - GENITOURINARY/GYNECOLOGICAL Hx Genitourinary Disorders: Yes - PSYCHIATRIC Hx Psychophysiologic Disorder: No Hx Substance Use: No - SURGICAL HISTORY Hx Surgeries: Yes Hx Cataract Extraction: Yes Hx Cardiac Catheterization: Yes Other/Comment: appendicitis?? - ANESTHESIA Hx Anesthesia: Yes Hx Anesthesia Reactions: No Hx Malignant Hyperthermia: No Meds Allergies/Adverse Reactions: Allergies Allergy/AdvReac Type Severity Reaction Status Date / Time No Known Allergies Allergy Verified 09/30/18 23:12 - Medications Medications: Current Medications Artificial Tears (Artificial Tears) 2 drop OU Q4 PRN PRN Reason: Dry eyes Aspirin (Ecotrin) 81 mg PO DAILY [facility] Last Admin: 10/01/18 08:27 Dose: 81 mg Atorvastatin Calcium (Lipitor) 40 mg PO HS [facility] Last Admin: 10/01/18 01:11 Dose: 40 mg Calcitriol (Rocaltrol) 0.5 mcg PO DAILY [facility] Last Admin: 10/01/18 08:27 Dose: 0.5 mcg Cilostazol (Pletal) 100 mg PO Q12 [facility] Last Admin: 10/01/18 08:26 Dose: 100 mg Clopidogrel Bisulfate (Plavix) 75 mg PO DAILY [facility] Last Admin: 10/01/18 08:30 Dose: 75 mg Dextrose (Dextrose 50% Inj) 0 ml IV STAT PRN; Protocol PRN Reason: Hypoglycemia Protocol Dextrose (Glutose 15) 0 gm PO ONCE PRN; Protocol PRN Reason: Hypoglycemia Protocol Doxazosin Mesylate (Cardura) 8 mg PO DAILY [facility] Last Admin: 10/01/18 08:28 Dose: 8 mg Famotidine (Pepcid) 40 mg PO DAILY [facility] Last Admin: 10/01/18 08:27 Dose: 40 mg Furosemide (Lasix) 20 mg PO DAILY [facility] Last Admin: 10/01/18 08:28 Dose: 20 mg Glucagon (Glucagen Diagnostic Kit) 0 mg IM STAT PRN; Protocol PRN Reason: Hypoglycemia Protocol Heparin Sodium (Porcine) (Heparin) 5,000 units SC Q8 [facility]; Protocol Last Admin: 10/01/18 08:29 Dose: 5,000 units Amiodarone HCl 450 mg/ Sodium (Chloride) 259 mls @ 34.53 mls/hr IV .Q7H31M [facility]; Protocol Last Admin: 10/01/18 07:22 Dose: 0.5 mg/min, 17.27 mls/hr Insulin Human Lispro (Humalog) 0 units SC ACHS [facility]; Protocol Last Admin: 10/01/18 11:14 Dose: Not Given Levothyroxine Sodium (Synthroid) 50 mcg PO DAILY@0630 [facility] Last Admin: 10/01/18 06:20 Dose: 50 mcg Metoprolol Tartrate (Lopressor) 50 mg PO Q12 [facility] Last Admin: 10/01/18 08:26 Dose: 50 mg Multivitamins/Minerals (Therapeutic-M Tab) 1 tab PO DAILY [facility] Last Admin: 10/01/18 08:25 Dose: 1 tab Physical Exam - Constitutional Appears: Well, Non-toxic, No Acute Distress - Head Exam Head Exam: ATRAUMATIC, NORMOCEPHALIC - Eye Exam Eye Exam: EOMI, PERRL - Respiratory Exam Respiratory Exam: Clear to Auscultation Bilateral, NORMAL BREATHING PATTERN - Cardiovascular Exam Cardiovascular Exam: +S1, +S2 - GI/Abdominal Exam GI & Abdominal Exam: Soft. absent: Tenderness - Extremities Exam Extremities exam: Positive for: pedal pulses present. Negative for: pedal edema - Neurological Exam Neurological exam: Alert, Oriented x3 - Psychiatric Exam Psychiatric exam: Normal Affect, Normal Mood - Skin Skin Exam: Dry, Normal Color, Warm Results - Vital Signs Recent Vital Signs: Last Vital Signs Temp 98.2 F 10/01/18 12:00 Pulse 67 10/01/18 12:00 Resp 11 L 10/01/18 12:00 BP 117/86 10/01/18 12:00 Pulse Ox 94 L 10/01/18 12:00 - Labs Result Diagrams: 10/01/18 04:30 10/01/18 04:50 Labs: Laboratory Results - last 24 hr 09/30/18 09/30/18 09/30/18 17:05 17:05 17:05 WBC 8.3 RBC 4.30 L Hgb 13.5 Hct 39.9 MCV 92.8 MCH 31.3 H MCHC 33.7 RDW 13.0 Plt Count 170 D MPV 10.7 Neut % (Auto) 68.1 Lymph % (Auto) 21.7 [place] % (Auto) 8.6 Eos % (Auto) 1.4 Baso % (Auto) 0.2 Neut # (Auto) 5.6 Lymph # (Auto) 1.8 [place] # (Auto) 0.7 Eos # (Auto) 0.1 Baso # (Auto) 0.0 PT 11.8 INR 1.0 APTT 30.9 Sodium 141 Potassium 3.7 Chloride 99 Carbon Dioxide 24 Anion Gap 22 H BUN 40 H Creatinine 1.8 H Est GFR ( Amer) 44 Est GFR (Non-Af Amer) 37 POC Glucose (mg/dL) Random Glucose 115 H Calcium 9.5 Phosphorus 4.5 Magnesium 1.7 Total Bilirubin 0.7 AST 23 ALT 27 Alkaline Phosphatase 59 Troponin I < 0.0120 NT-Pro-B Natriuret Pep 427 Total Protein 7.3 Albumin 4.0 Globulin 3.3 Albumin/Globulin Ratio 1.2 Lipase 113 TSH 3rd Generation 4.09 Urine Color Urine Clarity Urine pH Ur Specific [place] Urine Protein Urine Glucose (UA) Urine Ketones Urine Blood Urine Nitrate Urine Bilirubin Urine Urobilinogen Ur Leukocyte Esterase Urine RBC (Auto) Urine Microscopic WBC Hyaline Casts Influenza Typ A,B (EIA) 09/30/18 09/30/18 09/30/18 17:05 17:23 18:42 WBC RBC Hgb Hct MCV MCH MCHC RDW Plt Count MPV Neut % (Auto) Lymph % (Auto) [place] % (Auto) Eos % (Auto) Baso % (Auto) Neut # (Auto) Lymph # (Auto) [place] # (Auto) Eos # (Auto) Baso # (Auto) PT INR APTT Sodium Potassium Chloride Carbon Dioxide Anion Gap BUN Creatinine Est GFR ( Amer) Est GFR (Non-Af Amer) POC Glucose (mg/dL) 82 Random Glucose Calcium Phosphorus Magnesium Total Bilirubin AST ALT Alkaline Phosphatase Troponin I NT-Pro-B Natriuret Pep Total Protein Albumin Globulin Albumin/Globulin Ratio Lipase TSH 3rd Generation Urine Color Yellow Urine Clarity Slighty-cloudy Urine pH 5.0 Ur Specific [place] 1.014 Urine Protein Negative Urine Glucose (UA) Neg Urine Ketones Negative Urine Blood Negative Urine Nitrate Negative Urine Bilirubin Negative Urine Urobilinogen 0.2-1.0 Ur Leukocyte Esterase Neg Urine RBC (Auto) 3 Urine Microscopic WBC 3 Hyaline Casts 6-10 H Influenza Typ A,B (EIA) Negative for flu a/b 09/30/18 10/01/18 10/01/18 21:50 00:57 04:30 WBC 7.7 RBC 4.27 L Hgb 13.6 Hct 40.1 MCV 93.8 MCH 31.8 H MCHC 33.9 RDW 12.9 Plt Count 160 MPV 10.4 Neut % (Auto) 49.1 L Lymph % (Auto) 37.2 [place] % (Auto) 8.9 Eos % (Auto) 4.5 H Baso % (Auto) 0.3 Neut # (Auto) 3.8 Lymph # (Auto) 2.9 [place] # (Auto) 0.7 Eos # (Auto) 0.3 Baso # (Auto) 0.0 PT INR APTT Sodium Potassium Chloride Carbon Dioxide Anion Gap BUN Creatinine Est GFR ( Amer) Est GFR (Non-Af Amer) POC Glucose (mg/dL) 128 H Random Glucose Calcium Phosphorus Magnesium Total Bilirubin AST ALT Alkaline Phosphatase Troponin I < 0.0120 NT-Pro-B Natriuret Pep Total Protein Albumin Globulin Albumin/Globulin Ratio Lipase TSH 3rd Generation Urine Color Urine Clarity Urine pH Ur Specific [place] Urine Protein Urine Glucose (UA) Urine Ketones Urine Blood Urine Nitrate Urine Bilirubin Urine Urobilinogen Ur Leukocyte Esterase Urine RBC (Auto) Urine Microscopic WBC Hyaline Casts Influenza Typ A,B (EIA) 10/01/18 10/01/18 10/01/18 04:50 07:04 08:20 WBC RBC Hgb Hct MCV MCH MCHC RDW Plt Count MPV Neut % (Auto) Lymph % (Auto) [place] % (Auto) Eos % (Auto) Baso % (Auto) Neut # (Auto) Lymph # (Auto) [place] # (Auto) Eos # (Auto) Baso # (Auto) PT INR APTT Sodium 139 Potassium 3.5 L Chloride 99 Carbon Dioxide 26 Anion Gap 18 BUN 36 H Creatinine 1.4 Est GFR ( Amer) 59 Est GFR (Non-Af Amer) 49 POC Glucose (mg/dL) 90 Random Glucose 96 Calcium 9.3 Phosphorus Magnesium Total Bilirubin AST ALT Alkaline Phosphatase Troponin I < 0.0120 NT-Pro-B Natriuret Pep Total Protein Albumin Globulin Albumin/Globulin Ratio Lipase TSH 3rd Generation Urine Color Urine Clarity Urine pH Ur Specific [place] Urine Protein Urine Glucose (UA) Urine Ketones Urine Blood Urine Nitrate Urine Bilirubin Urine Urobilinogen Ur Leukocyte Esterase Urine RBC (Auto) Urine Microscopic WBC Hyaline Casts Influenza Typ A,B (EIA) 10/01/18 11:09 WBC RBC Hgb Hct MCV MCH MCHC RDW Plt Count MPV Neut % (Auto) Lymph % (Auto) [place] % (Auto) Eos % (Auto) Baso % (Auto) Neut # (Auto) Lymph # (Auto) [place] # (Auto) Eos # (Auto) Baso # (Auto) PT INR APTT Sodium Potassium Chloride Carbon Dioxide Anion Gap BUN Creatinine Est GFR ( Amer) Est GFR (Non-Af Amer) POC Glucose (mg/dL) 99 Random Glucose Calcium Phosphorus Magnesium Total Bilirubin AST ALT Alkaline Phosphatase Troponin I NT-Pro-B Natriuret Pep Total Protein Albumin Globulin Albumin/Globulin Ratio Lipase TSH 3rd Generation Urine Color Urine Clarity Urine pH Ur Specific [place] Urine Protein Urine Glucose (UA) Urine Ketones Urine Blood Urine Nitrate Urine Bilirubin Urine Urobilinogen Ur Leukocyte Esterase Urine RBC (Auto) Urine Microscopic WBC Hyaline Casts Influenza Typ A,B (EIA) Assessment & Plan (1) CAD (coronary artery disease) Status: Acute (2) Palpitations Status: Acute (3) Shortness of breath Status: Acute - Assessment and Plan (Free Text) Plan: Spoke w/ Dr. Fagan about prior cardiac cath finidngs Patient noted to have RCA + LCX lesions; Patient and Dr. Fagan on board for Cardiac Cath at [facility] on 10/01 for fu rther evaluation NPO past MN except meds ASA Plavix STATIN BB Start Ranexa Further reccs per Dr. Baer <Aaron Baer - Last Filed: 10/03/18 19:35> Results - Vital Signs Recent Vital Signs: Last Vital Signs Temp 98.7 F 10/03/18 16:00 Pulse 69 10/03/18 16:00 Resp 12 10/03/18 16:00 BP 107/75 10/03/18 16:00 Pulse Ox 93 L 10/03/18 16:00 - Labs Result Diagrams: 10/03/18 04:50 10/03/18 04:50 Labs: Laboratory Results - last 24 hr 10/03/18 10/03/18 10/03/18 04:50 04:50 05:44 WBC 7.5 RBC 4.26 L Hgb 13.5 Hct 40.0 MCV 93.9 MCH 31.7 H MCHC 33.8 RDW 13.1 Plt Count 154 Sodium 140 Potassium 3.9 Chloride 99 Carbon Dioxide 27 Anion Gap 18 BUN 22 H Creatinine 1.1 Est GFR ( Amer) > 60 Est GFR (Non-Af Amer) > 60 POC Glucose (mg/dL) 73 Random Glucose 93 Calcium 9.0 Total Bilirubin 0.5 AST 27 ALT 35 Alkaline Phosphatase 58 Total Protein 7.1 Albumin 3.8 Globulin 3.3 Albumin/Globulin Ratio 1.1 10/03/18 10/03/18 11:11 16:43 WBC RBC Hgb Hct MCV MCH MCHC RDW Plt Count Sodium Potassium Chloride Carbon Dioxide Anion Gap BUN Creatinine Est GFR ( Amer) Est GFR (Non-Af Amer) POC Glucose (mg/dL) 142 H 105 Random Glucose Calcium Total Bilirubin AST ALT Alkaline Phosphatase Total Protein Albumin Globulin Albumin/Globulin Ratio Attending/Attestation - Attestation I have personally seen and examined this patient.: Yes I have fully participated in the care of the patient.: Yes I have reviewed all pertinent clinical information: Yes
--- NOTE | 2018-10-01 17:15 | CP.PCM.HP ---
History of Present Illness - History of Present Illness History of Present Illness: CC:Shortness of Breath History of Present Illness: A 77-year-old male with a past medical history significant for CAD, Type II DM, HTN, HLD, hypothyroidism, & TIA who Presented to [place] [facility] on 09/30 with complaints of shortness of breath and palpitations. Patient reported that two weeks ago he quit taking his Ranexa due to insufficient refills. He reported 3-4 days prior to admission he began having complaints of blurry vision, dizziness, weakness as well as palpitations with associated shortness of breath. He reported that rest alleviated symptoms, and over the past three days his symptoms have been progressively worsening. He denies any loss of consciousness. Denies any history of tobacco use, chest pain, palpitations He reports that his symptoms have significantly improved since time of admission. Remainder of 12 system ROS is otherwise negative. TTE: September 2017 shows ejection fraction 70%, with grade I abnormal re laxation. Cardiac catheterization in March 2017 which showed RCA and left circumflex lesions. +Loop recorder implanted in April 2018. Present on Admission - Present on Admission Any Indicators Present on Admission: No Review of Systems - Review of Systems All systems: reviewed and no additional remarkable complaints except Review of Systems: as Per HPI Past Patient History - Past Medical History & Family History Past Medical History?: Yes Past Family History: Reviewed and not pertinent - Past Social History Smoking Status: Never Smoked Alcohol: None Drugs: Denies - CARDIAC Hx Cardiac Disorders: Yes - PULMONARY Hx Respiratory Disorders: Yes - NEUROLOGICAL Hx Neurological Disorder: Yes - HEENT Hx HEENT Problems: Yes - RENAL Hx Chronic Kidney Disease: No - ENDOCRINE/METABOLIC Hx Endocrine Disorders: Yes - HEMATOLOGICAL/ONCOLOGICAL Hx Human Immunodeficiency Virus (HIV): No - INTEGUMENTARY Hx Dermatological Problems: No - MUSCULOSKELETAL/RHEUMATOLOGICAL Hx Musculoskeletal Disorders: Yes - GASTROINTESTINAL Hx Gastritis: Yes - GENITOURINARY/GYNECOLOGICAL Hx Genitourinary Disorders: Yes - PSYCHIATRIC Hx Psychophysiologic Disorder: No Hx Substance Use: No - SURGICAL HISTORY Hx Surgeries: Yes Hx Cataract Extraction: Yes Hx Cardiac Catheterization: Yes Other/Comment: appendicitis?? - ANESTHESIA Hx Anesthesia: Yes Hx Anesthesia Reactions: No Hx Malignant Hyperthermia: No Meds Allergies/Adverse Reactions: Allergies Allergy/AdvReac Type Severity Reaction Status Date / Time No Known Allergies Allergy Verified 09/30/18 23:12 Physical Exam - Constitutional Appears: Well, No Acute Distress - Head Exam Head Exam: ATRAUMATIC, NORMAL INSPECTION, NORMOCEPHALIC - Eye Exam Eye Exam: EOMI, Normal appearance, PERRL Pupil Exam: NORMAL ACCOMODATION, PERRL - ENT Exam ENT Exam: Mucous Membranes Moist, Normal Exam - Neck Exam Neck exam: Positive for: Normal Inspection - Respiratory Exam Respiratory Exam: Clear to Auscultation Bilateral, NORMAL BREATHING PATTERN - Cardiovascular Exam Cardiovascular Exam: REGULAR RHYTHM, +S1, +S2 - GI/Abdominal Exam GI & Abdominal Exam: Normal Bowel Sounds, Soft. absent: Tenderness - Extremities Exam Extremities exam: Positive for: full ROM, normal capillary refill, normal inspection - Back Exam Back exam: FULL ROM, NORMAL INSPECTION - Neurological Exam Neurological exam: Alert, CN II-XII Intact, Normal Gait, Oriented x3, Reflexes Normal - Psychiatric Exam Psychiatric exam: Normal Affect, Normal Mood - Skin Skin Exam: Dry, Intact, Normal Color, Warm Results - Vital Signs Recent Vital Signs: Last Vital Signs Temp 98.3 F 10/01/18 16:00 Pulse 72 10/01/18 16:00 Resp 15 10/01/18 16:00 BP 81/48 L 10/01/18 16:00 Pulse Ox 92 L 10/01/18 16:00 - Labs Result Diagrams: 10/01/18 04:30 10/01/18 04:50 Labs: Laboratory Results - last 24 hr 09/30/18 09/30/18 09/30/18 17:05 17:05 17:05 WBC 8.3 RBC 4.30 L Hgb 13.5 Hct 39.9 MCV 92.8 MCH 31.3 H MCHC 33.7 RDW 13.0 Plt Count 170 D MPV 10.7 Neut % (Auto) 68.1 Lymph % (Auto) 21.7 [place] % (Auto) 8.6 Eos % (Auto) 1.4 Baso % (Auto) 0.2 Neut # (Auto) 5.6 Lymph # (Auto) 1.8 [place] # (Auto) 0.7 Eos # (Auto) 0.1 Baso # (Auto) 0.0 PT 11.8 INR 1.0 APTT 30.9 Sodium 141 Potassium 3.7 Chloride 99 Carbon Dioxide 24 Anion Gap 22 H BUN 40 H Creatinine 1.8 H Est GFR ( Amer) 44 Est GFR (Non-Af Amer) 37 POC Glucose (mg/dL) Random Glucose 115 H Calcium 9.5 Phosphorus 4.5 Magnesium 1.7 Total Bilirubin 0.7 AST 23 ALT 27 Alkaline Phosphatase 59 Troponin I < 0.0120 NT-Pro-B Natriuret Pep 427 Total Protein 7.3 Albumin 4.0 Globulin 3.3 Albumin/Globulin Ratio 1.2 Lipase 113 TSH 3rd Generation 4.09 Urine Color Urine Clarity Urine pH Ur Specific [place] Urine Protein Urine Glucose (UA) Urine Ketones Urine Blood Urine Nitrate Urine Bilirubin Urine Urobilinogen Ur Leukocyte Esterase Urine RBC (Auto) Urine Microscopic WBC Hyaline Casts Influenza Typ A,B (EIA) 09/30/18 09/30/18 09/30/18 17:05 17:23 18:42 WBC RBC Hgb Hct MCV MCH MCHC RDW Plt Count MPV Neut % (Auto) Lymph % (Auto) [place] % (Auto) Eos % (Auto) Baso % (Auto) Neut # (Auto) Lymph # (Auto) [place] # (Auto) Eos # (Auto) Baso # (Auto) PT INR APTT Sodium Potassium Chloride Carbon Dioxide Anion Gap BUN Creatinine Est GFR ( Amer) Est GFR (Non-Af Amer) POC Glucose (mg/dL) 82 Random Glucose Calcium Phosphorus Magnesium Total Bilirubin AST ALT Alkaline Phosphatase Troponin I NT-Pro-B Natriuret Pep Total Protein Albumin Globulin Albumin/Globulin Ratio Lipase TSH 3rd Generation Urine Color Yellow Urine Clarity Slighty-cloudy Urine pH 5.0 Ur Specific [place] 1.014 Urine Protein Negative Urine Glucose (UA) Neg Urine Ketones Negative Urine Blood Negative Urine Nitrate Negative Urine Bilirubin Negative Urine Urobilinogen 0.2-1.0 Ur Leukocyte Esterase Neg Urine RBC (Auto) 3 Urine Microscopic WBC 3 Hyaline Casts 6-10 H Influenza Typ A,B (EIA) Negative for flu a/b 09/30/18 10/01/18 10/01/18 21:50 00:57 04:30 WBC 7.7 RBC 4.27 L Hgb 13.6 Hct 40.1 MCV 93.8 MCH 31.8 H MCHC 33.9 RDW 12.9 Plt Count 160 MPV 10.4 Neut % (Auto) 49.1 L Lymph % (Auto) 37.2 [place] % (Auto) 8.9 Eos % (Auto) 4.5 H Baso % (Auto) 0.3 Neut # (Auto) 3.8 Lymph # (Auto) 2.9 [place] # (Auto) 0.7 Eos # (Auto) 0.3 Baso # (Auto) 0.0 PT INR APTT Sodium Potassium Chloride Carbon Dioxide Anion Gap BUN Creatinine Est GFR ( Amer) Est GFR (Non-Af Amer) POC Glucose (mg/dL) 128 H Random Glucose Calcium Phosphorus Magnesium Total Bilirubin AST ALT Alkaline Phosphatase Troponin I < 0.0120 NT-Pro-B Natriuret Pep Total Protein Albumin Globulin Albumin/Globulin Ratio Lipase TSH 3rd Generation Urine Color Urine Clarity Urine pH Ur Specific [place] Urine Protein Urine Glucose (UA) Urine Ketones Urine Blood Urine Nitrate Urine Bilirubin Urine Urobilinogen Ur Leukocyte Esterase Urine RBC (Auto) Urine Microscopic WBC Hyaline Casts Influenza Typ A,B (EIA) 10/01/18 10/01/18 10/01/18 04:50 07:04 08:20 WBC RBC Hgb Hct MCV MCH MCHC RDW Plt Count MPV Neut % (Auto) Lymph % (Auto) [place] % (Auto) Eos % (Auto) Baso % (Auto) Neut # (Auto) Lymph # (Auto) [place] # (Auto) Eos # (Auto) Baso # (Auto) PT INR APTT Sodium 139 Potassium 3.5 L Chloride 99 Carbon Dioxide 26 Anion Gap 18 BUN 36 H Creatinine 1.4 Est GFR ( Amer) 59 Est GFR (Non-Af Amer) 49 POC Glucose (mg/dL) 90 Random Glucose 96 Calcium 9.3 Phosphorus Magnesium Total Bilirubin AST ALT Alkaline Phosphatase Troponin I < 0.0120 NT-Pro-B Natriuret Pep Total Protein Albumin Globulin Albumin/Globulin Ratio Lipase TSH 3rd Generation Urine Color Urine Clarity Urine pH Ur Specific [place] Urine Protein Urine Glucose (UA) Urine Ketones Urine Blood Urine Nitrate Urine Bilirubin Urine Urobilinogen Ur Leukocyte Esterase Urine RBC (Auto) Urine Microscopic WBC Hyaline Casts Influenza Typ A,B (EIA) 10/01/18 10/01/18 10/01/18 11:09 16:45 16:47 WBC RBC Hgb Hct MCV MCH MCHC RDW Plt Count MPV Neut % (Auto) Lymph % (Auto) [place] % (Auto) Eos % (Auto) Baso % (Auto) Neut # (Auto) Lymph # (Auto) [place] # (Auto) Eos # (Auto) Baso # (Auto) PT INR APTT Sodium Potassium Chloride Carbon Dioxide Anion Gap BUN Creatinine Est GFR ( Amer) Est GFR (Non-Af Amer) POC Glucose (mg/dL) 99 24 L* 105 Random Glucose Calcium Phosphorus Magnesium Total Bilirubin AST ALT Alkaline Phosphatase Troponin I NT-Pro-B Natriuret Pep Total Protein Albumin Globulin Albumin/Globulin Ratio Lipase TSH 3rd Generation Urine Color Urine Clarity Urine pH Ur Specific [place] Urine Protein Urine Glucose (UA) Urine Ketones Urine Blood Urine Nitrate Urine Bilirubin Urine Urobilinogen Ur Leukocyte Esterase Urine RBC (Auto) Urine Microscopic WBC Hyaline Casts Influenza Typ A,B (EIA) - Imaging and Cardiology Chest x-ray Status: Report reviewed by me Additional comment: Date of service: 09/30/2018 HISTORY: chest pain/ r/o infiltrate COMPARISON: No prior. TECHNIQUE: Chest PA and lateral FINDINGS: LUNGS: No active pulmonary disease. PLEURA: No significant pleural effusion identified. No pneumothorax apparent. CARDIOVASCULAR: Calcific atherosclerotic changes are seen related to the thoracic aorta. Normal cardiac size. No pulmonary vascular congestion. Event recorder noted at the left chest wall anteriorly. OSSEOUS STRUCTURES: No significant abnormalities. VISUALIZED UPPER ABDOMEN: Normal. OTHER FINDINGS: None. IMPRESSION: No interval acute cardiopulmonary disease appreciated. Interval event recorder noted at the left chest wall. CT scan - head Status: Report reviewed by me Additional comment: Date of service: 09/30/2018 PROCEDURE: CT HEAD WITHOUT CONTRAST. HISTORY: headache dizzy COMPARISON: None available. TECHNIQUE: Axial computed tomography images were obtained through the head/brain without intravenous contrast. Radiation dose: Total exam DLP = 813.06 mGy-cm. This CT exam was performed using one or more of the following dose reduction techniques: Automated exposure control, adjustment of the mA and/or kV according to patient size, and/or use of iterative reconstruction technique. FINDINGS: HEMORRHAGE: No intracranial hemorrhage. BRAIN: Diffuse atrophy with prominence of the ventricles and sulci noted. No mass effect or edema. Intracranial atherosclerosis. Scattered periventricular and subcortical white matter hypodensities, which are nonspecific, but often seen with chronic microvascular ischemic disease. Please note that MRI with diffusion imaging is more sensitive in the detection of acute ischemic event. VENTRICLES: No hydrocephalus. CALVARIUM: Unremarkable. PARANASAL SINUSES: Mucosal thickening of the ethmoid air cells. MASTOID AIR CELLS: Unremarkable as visualized. No inflammatory changes. OTHER FINDINGS: Partial opacification of the left external auditory canals, likely cerumen. IMPRESSION: No acute intracranial pathology identified. Mucosal thickening of the ethmoid air cells; correlate clinically for sinusitis. Assessment & Plan (1) [id number] renal failure Status: Acute (2) DVT prophylaxis Status: Acute (3) Palpitations Status: Acute (4) Wide-complex tachycardia Status: Acute (5) Acute chest pain Status: Acute
--- NOTE | 2018-10-01 17:44 | CP.CCUPN ---
CCU Subjective - Physician Review Events Since Last Encounter (Free Text): 10/01/18 17:49 no complaints, no chest pain. CCU Objective - Vital Signs / Intake & Output Vital Signs (Last 4 hours): Vital Signs Temp Pulse Resp BP Pulse Ox 10/01/18 16:00 98.3 F 72 15 81/48 L 92 L 10/01/18 14:00 72 16 86/61 L 93 L Intake and Output (Last 8hrs): Intake & Output 10/01/18 10/01/18 10/01/18 06:59 14:59 22:59 Intake Total 242 414 Output Total 300 Balance 242 114 Weight 167 lb 3 oz Intake: IV 142 54 Oral 100 360 Output: Urine 300 Urine, Voided 300 - Physical Exam Head: Positive for: Atraumatic, Normocephalic Pupils: Positive for: PERRL Extroacular Muscles: Positive for: EOMI Conjunctiva: Positive for: Normal Mouth: Positive for: Moist Mucous Membranes Nose (External): Positive for: Atraumatic Respiratory/Chest: Positive for: Clear to Auscultation, Good Air Exchange Abdomen: Positive for: Normal Bowel Sounds. Negative for: Tenderness, Distention Upper Extremity: Positive for: Normal Inspection Lower Extremity: Positive for: Normal Inspection Neurological: Positive for: GCS=15 Psychiatric: Positive for: Alert, Oriented x 3 - Medications Active Medications: Active Medications Generic Name Dose Route Start Last Admin Trade Name Freq PRN Reason Stop Dose Admin Artificial Tears 2 drop 10/01/18 09:23 Artificial Tears OU Q4 PRN Dry eyes Aspirin 81 mg 10/01/18 09:00 10/01/18 08:27 Ecotrin PO 81 mg DAILY MORE Administration Atorvastatin Calcium 40 mg 09/30/18 23:45 10/01/18 01:11 Lipitor PO 40 mg HS MORE Administration Calcitriol 0.5 mcg 10/01/18 09:00 10/01/18 08:27 Rocaltrol PO 0.5 mcg DAILY MORE Administration Cilostazol 100 mg 10/01/18 09:00 10/01/18 08:26 Pletal PO 100 mg Q12 MORE Administration Clopidogrel Bisulfate 75 mg 10/01/18 09:00 10/01/18 08:30 Plavix PO 75 mg DAILY MORE Administration Dextrose 0 ml 09/30/18 21:45 Dextrose 50% Inj IV STAT PRN Hypoglycemia Protocol Protocol Dextrose 0 gm 09/30/18 21:45 Glutose 15 PO ONCE PRN Hypoglycemia Protocol Protocol Doxazosin Mesylate 8 mg 10/01/18 09:00 10/01/18 08:28 Cardura PO 8 mg DAILY MORE Administration Famotidine 40 mg 10/01/18 09:00 10/01/18 08:27 Pepcid PO 40 mg DAILY MORE Administration Furosemide 20 mg 10/01/18 09:00 10/01/18 08:28 Lasix PO 20 mg DAILY MORE Administration Glucagon 0 mg 09/30/18 21:45 Glucagen Diagnostic Kit IM STAT PRN Hypoglycemia Protocol Protocol Heparin Sodium (Porcine) 5,000 units 10/01/18 01:00 10/01/18 16:29 Heparin SC 5,000 units Q8 MORE Administration Protocol Amiodarone HCl 450 mg/ Sodium 259 mls @ 34.53 mls/hr 09/30/18 21:15 10/01/18 07:22 Chloride IV 0.5 mg/min .[id number] MORE 17.27 mls/hr Administration Protocol 1 MG/MIN Insulin Human Lispro 0 units 09/30/18 22:00 10/01/18 16:50 Humalog SC Not Given ACHS MORE Protocol Levothyroxine Sodium 50 mcg 10/01/18 06:30 10/01/18 06:20 Synthroid PO 50 mcg DAILY@0630 MORE Administration Metoprolol Tartrate 50 mg 10/01/18 09:00 10/01/18 08:26 Lopressor PO 50 mg Q12 MORE Administration Multivitamins/Minerals 1 tab 10/01/18 09:00 10/01/18 08:25 Therapeutic-M Tab PO 1 tab DAILY MORE Administration Ranolazine 1,000 mg 10/01/18 17:00 Ranexa PO BID MORE - Patient Studies Lab Studies: Lab Studies 10/01/18 10/01/18 10/01/18 Range/Units 16:47 16:45 11:09 WBC (4.8-10.8) K/uL RBC (4.40-5.90) Mil/uL Hgb (12.0-18.0) g/dL Hct (35.0-51.0) % MCV (80.0-94.0) fl MCH (27.0-31.0) pg MCHC (33.0-37.0) g/dL RDW (11.5-14.5) % Plt Count (130-400) K/uL MPV (7.2-11.7) fl Neut % (Auto) (50.0-75.0) % Lymph % (Auto) (20.0-40.0) % [place] % (Auto) (0.0-10.0) % Eos % (Auto) (0.0-4.0) % Baso % (Auto) (0.0-2.0) % Neut # (Auto) (1.8-7.0) K/uL Lymph # (Auto) (1.0-4.3) K/uL [place] # (Auto) (0.0-0.8) K/uL Eos # (Auto) (0.0-0.7) K/uL Baso # (Auto) (0.0-0.2) K/uL PT (9.8-13.1) Seconds INR APTT (25.6-37.1) Seconds Sodium (132-148) mmol/l Potassium (3.6-5.0) MMOL/L Chloride (98-107) mmol/L Carbon Dioxide (22-30) mmol/L Anion Gap (10-20) BUN (9-20) mg/dl Creatinine (0.8-1.5) mg/dl Est GFR ( Amer) Est GFR (Non-Af Amer) POC Glucose (mg/dL) 105 24 L* 99 (65-110) mg/dL Random Glucose (75-110) mg/dL Calcium (8.4-10.2) mg/dL Phosphorus (2.5-4.5) mg/dl Magnesium (1.6-2.3) MG/DL Total Bilirubin (0.2-1.3) mg/dl AST (17-59) U/L ALT (21-72) U/L Alkaline Phosphatase (38-126) U/L Troponin I (0.00-0.120) ng/mL NT-Pro-B Natriuret Pep (0-900) pg/ml Total Protein (6.3-8.2) G/DL Albumin (3.5-5.0) g/dL Globulin (2.2-3.9) gm/dL Albumin/Globulin Ratio (1.0-2.1) Lipase (23-300) U/L TSH 3rd Generation (0.46-4.68) mIU/ML Urine Color (YELLOW) Urine Clarity (Clear) Urine pH (5.0-8.0) Ur Specific [place] (1.003-1.030) Urine Protein (NEGATIVE) mg/dL Urine Glucose (UA) (NEGATIVE) mg/dL Urine Ketones (NEGATIVE) mg/dL Urine Blood (NEGATIVE) Urine Nitrate (NEGATIVE) Urine Bilirubin (NEGATIVE) Urine Urobilinogen (0.2-1.0) mg/dL Ur Leukocyte Esterase (Negative) Anya/uL Urine RBC (Auto) (0-3) /hpf Urine Microscopic WBC (0-5) /hpf Hyaline Casts (0-2) /hpf Influenza Typ A,B (EIA) (NEGATIVE) 10/01/18 10/01/18 10/01/18 Range/Units 08:20 07:04 04:50 WBC (4.8-10.8) K/uL RBC (4.40-5.90) Mil/uL Hgb (12.0-18.0) g/dL Hct (35.0-51.0) % MCV (80.0-94.0) fl MCH (27.0-31.0) pg MCHC (33.0-37.0) g/dL RDW (11.5-14.5) % Plt Count (130-400) K/uL MPV (7.2-11.7) fl Neut % (Auto) (50.0-75.0) % Lymph % (Auto) (20.0-40.0) % [place] % (Auto) (0.0-10.0) % Eos % (Auto) (0.0-4.0) % Baso % (Auto) (0.0-2.0) % Neut # (Auto) (1.8-7.0) K/uL Lymph # (Auto) (1.0-4.3) K/uL [place] # (Auto) (0.0-0.8) K/uL Eos # (Auto) (0.0-0.7) K/uL Baso # (Auto) (0.0-0.2) K/uL PT (9.8-13.1) Seconds INR APTT (25.6-37.1) Seconds Sodium 139 (132-148) mmol/l Potassium 3.5 L (3.6-5.0) MMOL/L Chloride 99 (98-107) mmol/L Carbon Dioxide 26 (22-30) mmol/L Anion Gap 18 (10-20) BUN 36 H (9-20) mg/dl Creatinine 1.4 (0.8-1.5) mg/dl Est GFR ( Amer) 59 Est GFR (Non-Af Amer) 49 POC Glucose (mg/dL) 90 (65-110) mg/dL Random Glucose 96 (75-110) mg/dL Calcium 9.3 (8.4-10.2) mg/dL Phosphorus (2.5-4.5) mg/dl Magnesium (1.6-2.3) MG/DL Total Bilirubin (0.2-1.3) mg/dl AST (17-59) U/L ALT (21-72) U/L Alkaline Phosphatase (38-126) U/L Troponin I < 0.0120 (0.00-0.120) ng/mL NT-Pro-B Natriuret Pep (0-900) pg/ml Total Protein (6.3-8.2) G/DL Albumin (3.5-5.0) g/dL Globulin (2.2-3.9) gm/dL Albumin/Globulin Ratio (1.0-2.1) Lipase (23-300) U/L TSH 3rd Generation (0.46-4.68) mIU/ML Urine Color (YELLOW) Urine Clarity (Clear) Urine pH (5.0-8.0) Ur Specific [place] (1.003-1.030) Urine Protein (NEGATIVE) mg/dL Urine Glucose (UA) (NEGATIVE) mg/dL Urine Ketones (NEGATIVE) mg/dL Urine Blood (NEGATIVE) Urine Nitrate (NEGATIVE) Urine Bilirubin (NEGATIVE) Urine Urobilinogen (0.2-1.0) mg/dL Ur Leukocyte Esterase (Negative) Anya/uL Urine RBC (Auto) (0-3) /hpf Urine Microscopic WBC (0-5) /hpf Hyaline Casts (0-2) /hpf Influenza Typ A,B (EIA) (NEGATIVE) 10/01/18 10/01/18 09/30/18 Range/Units 04:30 00:57 21:50 WBC 7.7 (4.8-10.8) K/uL RBC 4.27 L (4.40-5.90) Mil/uL Hgb 13.6 (12.0-18.0) g/dL Hct 40.1 (35.0-51.0) % MCV 93.8 (80.0-94.0) fl MCH 31.8 H (27.0-31.0) pg MCHC 33.9 (33.0-37.0) g/dL RDW 12.9 (11.5-14.5) % Plt Count 160 (130-400) K/uL MPV 10.4 (7.2-11.7) fl Neut % (Auto) 49.1 L (50.0-75.0) % Lymph % (Auto) 37.2 (20.0-40.0) % [place] % (Auto) 8.9 (0.0-10.0) % Eos % (Auto) 4.5 H (0.0-4.0) % Baso % (Auto) 0.3 (0.0-2.0) % Neut # (Auto) 3.8 (1.8-7.0) K/uL Lymph # (Auto) 2.9 (1.0-4.3) K/uL [place] # (Auto) 0.7 (0.0-0.8) K/uL Eos # (Auto) 0.3 (0.0-0.7) K/uL Baso # (Auto) 0.0 (0.0-0.2) K/uL PT (9.8-13.1) Seconds INR APTT (25.6-37.1) Seconds Sodium (132-148) mmol/l Potassium (3.6-5.0) MMOL/L Chloride (98-107) mmol/L Carbon Dioxide (22-30) mmol/L Anion Gap (10-20) BUN (9-20) mg/dl Creatinine (0.8-1.5) mg/dl Est GFR ( Amer) Est GFR (Non-Af Amer) POC Glucose (mg/dL) 128 H (65-110) mg/dL Random Glucose (75-110) mg/dL Calcium (8.4-10.2) mg/dL Phosphorus (2.5-4.5) mg/dl Magnesium (1.6-2.3) MG/DL Total Bilirubin (0.2-1.3) mg/dl AST (17-59) U/L ALT (21-72) U/L Alkaline Phosphatase (38-126) U/L Troponin I < 0.0120 (0.00-0.120) ng/mL NT-Pro-B Natriuret Pep (0-900) pg/ml Total Protein (6.3-8.2) G/DL Albumin (3.5-5.0) g/dL Globulin (2.2-3.9) gm/dL Albumin/Globulin Ratio (1.0-2.1) Lipase (23-300) U/L TSH 3rd Generation (0.46-4.68) mIU/ML Urine Color (YELLOW) Urine Clarity (Clear) Urine pH (5.0-8.0) Ur Specific [place] (1.003-1.030) Urine Protein (NEGATIVE) mg/dL Urine Glucose (UA) (NEGATIVE) mg/dL Urine Ketones (NEGATIVE) mg/dL Urine Blood (NEGATIVE) Urine Nitrate (NEGATIVE) Urine Bilirubin (NEGATIVE) Urine Urobilinogen (0.2-1.0) mg/dL Ur Leukocyte Esterase (Negative) Anya/uL Urine RBC (Auto) (0-3) /hpf Urine Microscopic WBC (0-5) /hpf Hyaline Casts (0-2) /hpf Influenza Typ A,B (EIA) (NEGATIVE) 09/30/18 09/30/18 09/30/18 Range/Units 18:42 17:05 17:05 WBC (4.8-10.8) K/uL RBC (4.40-5.90) Mil/uL Hgb (12.0-18.0) g/dL Hct (35.0-51.0) % MCV (80.0-94.0) fl MCH (27.0-31.0) pg MCHC (33.0-37.0) g/dL RDW (11.5-14.5) % Plt Count (130-400) K/uL MPV (7.2-11.7) fl Neut % (Auto) (50.0-75.0) % Lymph % (Auto) (20.0-40.0) % [place] % (Auto) (0.0-10.0) % Eos % (Auto) (0.0-4.0) % Baso % (Auto) (0.0-2.0) % Neut # (Auto) (1.8-7.0) K/uL Lymph # (Auto) (1.0-4.3) K/uL [place] # (Auto) (0.0-0.8) K/uL Eos # (Auto) (0.0-0.7) K/uL Baso # (Auto) (0.0-0.2) K/uL PT 11.8 (9.8-13.1) Seconds INR 1.0 APTT 30.9 (25.6-37.1) Seconds Sodium (132-148) mmol/l Potassium (3.6-5.0) MMOL/L Chloride (98-107) mmol/L Carbon Dioxide (22-30) mmol/L Anion Gap (10-20) BUN (9-20) mg/dl Creatinine (0.8-1.5) mg/dl Est GFR ( Amer) Est GFR (Non-Af Amer) POC Glucose (mg/dL) (65-110) mg/dL Random Glucose (75-110) mg/dL Calcium (8.4-10.2) mg/dL Phosphorus (2.5-4.5) mg/dl Magnesium (1.6-2.3) MG/DL Total Bilirubin (0.2-1.3) mg/dl AST (17-59) U/L ALT (21-72) U/L Alkaline Phosphatase (38-126) U/L Troponin I (0.00-0.120) ng/mL NT-Pro-B Natriuret Pep (0-900) pg/ml Total Protein (6.3-8.2) G/DL Albumin (3.5-5.0) g/dL Globulin (2.2-3.9) gm/dL Albumin/Globulin Ratio (1.0-2.1) Lipase (23-300) U/L TSH 3rd Generation (0.46-4.68) mIU/ML Urine Color Yellow (YELLOW) Urine Clarity Slighty-cloudy (Clear) Urine pH 5.0 (5.0-8.0) Ur Specific [place] 1.014 (1.003-1.030) Urine Protein Negative (NEGATIVE) mg/dL Urine Glucose (UA) Neg (NEGATIVE) mg/dL Urine Ketones Negative (NEGATIVE) mg/dL Urine Blood Negative (NEGATIVE) Urine Nitrate Negative (NEGATIVE) Urine Bilirubin Negative (NEGATIVE) Urine Urobilinogen 0.2-1.0 (0.2-1.0) mg/dL Ur Leukocyte Esterase Neg (Negative) Anya/uL Urine RBC (Auto) 3 (0-3) /hpf Urine Microscopic WBC 3 (0-5) /hpf Hyaline Casts 6-10 H (0-2) /hpf Influenza Typ A,B (EIA) Negative for flu a/b (NEGATIVE) 09/30/18 09/30/18 Range/Units 17:05 17:05 WBC 8.3 (4.8-10.8) K/uL RBC 4.30 L (4.40-5.90) Mil/uL Hgb 13.5 (12.0-18.0) g/dL Hct 39.9 (35.0-51.0) % MCV 92.8 (80.0-94.0) fl MCH 31.3 H (27.0-31.0) pg MCHC 33.7 (33.0-37.0) g/dL RDW 13.0 (11.5-14.5) % Plt Count 170 D (130-400) K/uL MPV 10.7 (7.2-11.7) fl Neut % (Auto) 68.1 (50.0-75.0) % Lymph % (Auto) 21.7 (20.0-40.0) % [place] % (Auto) 8.6 (0.0-10.0) % Eos % (Auto) 1.4 (0.0-4.0) % Baso % (Auto) 0.2 (0.0-2.0) % Neut # (Auto) 5.6 (1.8-7.0) K/uL Lymph # (Auto) 1.8 (1.0-4.3) K/uL [place] # (Auto) 0.7 (0.0-0.8) K/uL Eos # (Auto) 0.1 (0.0-0.7) K/uL Baso # (Auto) 0.0 (0.0-0.2) K/uL PT (9.8-13.1) Seconds INR APTT (25.6-37.1) Seconds Sodium 141 (132-148) mmol/l Potassium 3.7 (3.6-5.0) MMOL/L Chloride 99 (98-107) mmol/L Carbon Dioxide 24 (22-30) mmol/L Anion Gap 22 H (10-20) BUN 40 H (9-20) mg/dl Creatinine 1.8 H (0.8-1.5) mg/dl Est GFR ( Amer) 44 Est GFR (Non-Af Amer) 37 POC Glucose (mg/dL) (65-110) mg/dL Random Glucose 115 H (75-110) mg/dL Calcium 9.5 (8.4-10.2) mg/dL Phosphorus 4.5 (2.5-4.5) mg/dl Magnesium 1.7 (1.6-2.3) MG/DL Total Bilirubin 0.7 (0.2-1.3) mg/dl AST 23 (17-59) U/L ALT 27 (21-72) U/L Alkaline Phosphatase 59 (38-126) U/L Troponin I < 0.0120 (0.00-0.120) ng/mL NT-Pro-B Natriuret Pep 427 (0-900) pg/ml Total Protein 7.3 (6.3-8.2) G/DL Albumin 4.0 (3.5-5.0) g/dL Globulin 3.3 (2.2-3.9) gm/dL Albumin/Globulin Ratio 1.2 (1.0-2.1) Lipase 113 (23-300) U/L TSH 3rd Generation 4.09 (0.46-4.68) mIU/ML Urine Color (YELLOW) Urine Clarity (Clear) Urine pH (5.0-8.0) Ur Specific [place] (1.003-1.030) Urine Protein (NEGATIVE) mg/dL Urine Glucose (UA) (NEGATIVE) mg/dL Urine Ketones (NEGATIVE) mg/dL Urine Blood (NEGATIVE) Urine Nitrate (NEGATIVE) Urine Bilirubin (NEGATIVE) Urine Urobilinogen (0.2-1.0) mg/dL Ur Leukocyte Esterase (Negative) Anya/uL Urine RBC (Auto) (0-3) /hpf Urine Microscopic WBC (0-5) /hpf Hyaline Casts (0-2) /hpf Influenza Typ A,B (EIA) (NEGATIVE) Laboratory Results - last 24 hr 09/30/18 09/30/18 09/30/18 17:05 17:05 17:05 WBC 8.3 RBC 4.30 L Hgb 13.5 Hct 39.9 MCV 92.8 MCH 31.3 H MCHC 33.7 RDW 13.0 Plt Count 170 D MPV 10.7 Neut % (Auto) 68.1 Lymph % (Auto) 21.7 [place] % (Auto) 8.6 Eos % (Auto) 1.4 Baso % (Auto) 0.2 Neut # (Auto) 5.6 Lymph # (Auto) 1.8 [place] # (Auto) 0.7 Eos # (Auto) 0.1 Baso # (Auto) 0.0 PT 11.8 INR 1.0 APTT 30.9 Sodium 141 Potassium 3.7 Chloride 99 Carbon Dioxide 24 Anion Gap 22 H BUN 40 H Creatinine 1.8 H Est GFR ( Amer) 44 Est GFR (Non-Af Amer) 37 POC Glucose (mg/dL) Random Glucose 115 H Calcium 9.5 Phosphorus 4.5 Magnesium 1.7 Total Bilirubin 0.7 AST 23 ALT 27 Alkaline Phosphatase 59 Troponin I < 0.0120 NT-Pro-B Natriuret Pep 427 Total Protein 7.3 Albumin 4.0 Globulin 3.3 Albumin/Globulin Ratio 1.2 Lipase 113 TSH 3rd Generation 4.09 Urine Color Urine Clarity Urine pH Ur Specific [place] Urine Protein Urine Glucose (UA) Urine Ketones Urine Blood Urine Nitrate Urine Bilirubin Urine Urobilinogen Ur Leukocyte Esterase Urine RBC (Auto) Urine Microscopic WBC Hyaline Casts Influenza Typ A,B (EIA) 09/30/18 09/30/18 09/30/18 17:05 18:42 21:50 WBC RBC Hgb Hct MCV MCH MCHC RDW Plt Count MPV Neut % (Auto) Lymph % (Auto) [place] % (Auto) Eos % (Auto) Baso % (Auto) Neut # (Auto) Lymph # (Auto) [place] # (Auto) Eos # (Auto) Baso # (Auto) PT INR APTT Sodium Potassium Chloride Carbon Dioxide Anion Gap BUN Creatinine Est GFR ( Amer) Est GFR (Non-Af Amer) POC Glucose (mg/dL) 128 H Random Glucose Calcium Phosphorus Magnesium Total Bilirubin AST ALT Alkaline Phosphatase Troponin I NT-Pro-B Natriuret Pep Total Protein Albumin Globulin Albumin/Globulin Ratio Lipase TSH 3rd Generation Urine Color Yellow Urine Clarity Slighty-cloudy Urine pH 5.0 Ur Specific [place] 1.014 Urine Protein Negative Urine Glucose (UA) Neg Urine Ketones Negative Urine Blood Negative Urine Nitrate Negative Urine Bilirubin Negative Urine Urobilinogen 0.2-1.0 Ur Leukocyte Esterase Neg Urine RBC (Auto) 3 Urine Microscopic WBC 3 Hyaline Casts 6-10 H Influenza Typ A,B (EIA) Negative for flu a/b 10/01/18 10/01/18 10/01/18 00:57 04:30 04:50 WBC 7.7 RBC 4.27 L Hgb 13.6 Hct 40.1 MCV 93.8 MCH 31.8 H MCHC 33.9 RDW 12.9 Plt Count 160 MPV 10.4 Neut % (Auto) 49.1 L Lymph % (Auto) 37.2 [place] % (Auto) 8.9 Eos % (Auto) 4.5 H Baso % (Auto) 0.3 Neut # (Auto) 3.8 Lymph # (Auto) 2.9 [place] # (Auto) 0.7 Eos # (Auto) 0.3 Baso # (Auto) 0.0 PT INR APTT Sodium 139 Potassium 3.5 L Chloride 99 Carbon Dioxide 26 Anion Gap 18 BUN 36 H Creatinine 1.4 Est GFR ( Amer) 59 Est GFR (Non-Af Amer) 49 POC Glucose (mg/dL) Random Glucose 96 Calcium 9.3 Phosphorus Magnesium Total Bilirubin AST ALT Alkaline Phosphatase Troponin I < 0.0120 NT-Pro-B Natriuret Pep Total Protein Albumin Globulin Albumin/Globulin Ratio Lipase TSH 3rd Generation Urine Color Urine Clarity Urine pH Ur Specific [place] Urine Protein Urine Glucose (UA) Urine Ketones Urine Blood Urine Nitrate Urine Bilirubin Urine Urobilinogen Ur Leukocyte Esterase Urine RBC (Auto) Urine Microscopic WBC Hyaline Casts Influenza Typ A,B (EIA) 10/01/18 10/01/18 10/01/18 07:04 08:20 11:09 WBC RBC Hgb Hct MCV MCH MCHC RDW Plt Count MPV Neut % (Auto) Lymph % (Auto) [place] % (Auto) Eos % (Auto) Baso % (Auto) Neut # (Auto) Lymph # (Auto) [place] # (Auto) Eos # (Auto) Baso # (Auto) PT INR APTT Sodium Potassium Chloride Carbon Dioxide Anion Gap BUN Creatinine Est GFR ( Amer) Est GFR (Non-Af Amer) POC Glucose (mg/dL) 90 99 Random Glucose Calcium Phosphorus Magnesium Total Bilirubin AST ALT Alkaline Phosphatase Troponin I < 0.0120 NT-Pro-B Natriuret Pep Total Protein Albumin Globulin Albumin/Globulin Ratio Lipase TSH 3rd Generation Urine Color Urine Clarity Urine pH Ur Specific [place] Urine Protein Urine Glucose (UA) Urine Ketones Urine Blood Urine Nitrate Urine Bilirubin Urine Urobilinogen Ur Leukocyte Esterase Urine RBC (Auto) Urine Microscopic WBC Hyaline Casts Influenza Typ A,B (EIA) 10/01/18 10/01/18 16:45 16:47 WBC RBC Hgb Hct MCV MCH MCHC RDW Plt Count MPV Neut % (Auto) Lymph % (Auto) [place] % (Auto) Eos % (Auto) Baso % (Auto) Neut # (Auto) Lymph # (Auto) [place] # (Auto) Eos # (Auto) Baso # (Auto) PT INR APTT Sodium Potassium Chloride Carbon Dioxide Anion Gap BUN Creatinine Est GFR ( Amer) Est GFR (Non-Af Amer) POC Glucose (mg/dL) 24 L* 105 Random Glucose Calcium Phosphorus Magnesium Total Bilirubin AST ALT Alkaline Phosphatase Troponin I NT-Pro-B Natriuret Pep Total Protein Albumin Globulin Albumin/Globulin Ratio Lipase TSH 3rd Generation Urine Color Urine Clarity Urine pH Ur Specific [place] Urine Protein Urine Glucose (UA) Urine Ketones Urine Blood Urine Nitrate Urine Bilirubin Urine Urobilinogen Ur Leukocyte Esterase Urine RBC (Auto) Urine Microscopic WBC Hyaline Casts Influenza Typ A,B (EIA) Radiology Impressions: Radiology Impressions Chest X-Ray 09/30/18 17:04 IMPRESSION: No interval acute cardiopulmonary disease appreciated. Interval event recorder noted at the left chest wall. Head CT 09/30/18 17:04 IMPRESSION: No acute intracranial pathology identified. Mucosal thickening of the ethmoid air cells; correlate clinically for sinusitis. EKG/Cardiology Studies: Cardiology / EKG Studies 09/30/18 17:03 ELECTROCARDIOGRAM Stat Comment: Mode Of Transportation: Reason For Exam: dizzy 10/01/18 07:00 ELECTROCARDIOGRAM Routine Comment: for AM Mode Of Transportation: Reason For Exam: arrhythmia Fingerstick Blood Sugar Results: 101 Review of Systems - Review of Systems All systems: reviewed and no additional remarkable complaints except (no complaints) - Cardiovascular Cardiovascular: absent: Chest Pain, Palpitations Critical Care Progress Note - Nutrition Nutrition: Nutrition Category Date Time Status Consistent Carbohydrate [DIET] Diets 09/30/18 Breakfast Active NPO Diet [DIET] Diets 10/02/18 Breakfast Active Assessment/Plan (1) Palpitations Assessment and plan: 77 y/o male with MHx significant for CAD, DM2, HTN, HLD, hypothyroid, MVP, and prior TIAs. p/w palpitations with RBBB and LBBB. Neuro: alert and oriented x 3 Pulm: no acute issues, breathing spontaneously on room air CV: hemodynamically stable, no chest pain, going for cath tomorrow. Continue metoprolol po q12h. Continue pletal and Ranexa for angina. Hem: no acute issues, CAD continue ASA and Plavix. Renal: no acute issues Endo: DM type 2, SISS for coverage. GI: cardiac diet ID: no acute issues DVT proph - heparin sq GI proph - pepcid Code status - full code Critical Care time spent 35 minutes Multi-disciplinary rounds were performed with house staff, nursing, speech therapy, respiratory therapy, pharmacy and nutrition with integrated input from the primary team/attending and other consulting services. The documented time is cumulative and includes review of patient data/exams/labs/chart review and examination of the patient on rounds and throughout the day; time is exclusive of any procedures or teaching time. Current Visit: Yes Status: Acute
[2018-10-01] MEDS: Artificial Tears Opht Soln OU PRN (20:47)
[2018-10-02 05:24] LABS: HEMOGLOBIN 13.4 g/dL (12.0-18.0); MEAN CELL VOLUME 93.5 fl (80.0-94.0); MEAN CORPUSCULAR HEMOGLOBIN 31.8 pg (27.0-31.0); RBC 4.22 Mil/uL (4.40-5.90); RED CELL DISTRIBUTION WIDTH 13.1 % (11.5-14.5); WHITE BLOOD COUNT 7.5 K/uL (4.8-10.8)
[2018-10-02] MEDS: Levothyroxine 50 MCG TAB PO SCH (05:43)
[2018-10-02 05:46] LABS: BLOOD UREA NITROGEN 27 mg/dl (9-20); CALCIUM 9.1 mg/dL (8.4-10.2); GFR NON-AFRICAN AMERICAN 54
--- NOTE | 2018-10-02 09:17 | CP.PCM.PN ---
<Pasquale Ralph - Last Filed: 10/02/18 17:19> Subjective - Date & Time of Evaluation Date of Evaluation: 10/02/18 Time of Evaluation: 09:15 - Subjective Subjective: Pasquale Ralph DO PGY1 - Internal Medicine Disk Operator - Cardiology Note for Dr. Baer Patient was seen and evaluated at bedside this morning Yesterday patient was explained w/ use of translation machine that he will need cardiac catheterization; patient verbalized understanding at the time however today he states he did not fully understand w/ the machine yesterday. Explained to patient with serbian speaking hospital staff that he was noted to have prior stenosis on previous catheterization; and his symptoms may have been a result of worsening stenosis. 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 Fagan Patient understands now that he will need cardiac cath, and is agreeable to cath at this time. No complaints offered at bedside this morning. No CP, Palp, SOB. Objective - Vital Signs/Intake and Output Vital Signs (last 24 hours): Temp Pulse Resp BP Pulse Ox 98.2 F 80 11 L 111/62 92 L 10/02/18 08:00 10/02/18 08:00 10/02/18 08:00 10/02/18 08:00 10/02/18 08:00 Intake and Output: 10/02/18 10/02/18 06:59 18:59 Intake Total 600 Output Total 900 Balance -300 - Medications Medications: Current Medications Amiodarone HCl (Cordarone) 200 mg PO DAILY [facility] Artificial Tears (Artificial Tears) 2 drop OU Q4 PRN PRN Reason: Dry eyes Last Admin: 10/01/18 20:47 Dose: 2 drop Aspirin (Ecotrin) 81 mg PO DAILY [facility] Last Admin: 10/01/18 08:27 Dose: 81 mg Atorvastatin Calcium (Lipitor) 40 mg PO HS [facility] Last Admin: 10/01/18 21:42 Dose: 40 mg Calcitriol (Rocaltrol) 0.5 mcg PO DAILY [facility] Last Admin: 10/01/18 08:27 Dose: 0.5 mcg Cilostazol (Pletal) 100 mg PO Q12 [facility] Last Admin: 10/01/18 20:46 Dose: 100 mg Clopidogrel Bisulfate (Plavix) 75 mg PO DAILY [facility] Last Admin: 10/01/18 08:30 Dose: 75 mg Dextrose (Dextrose 50% Inj) 0 ml IV STAT PRN; Protocol PRN Reason: Hypoglycemia Protocol Dextrose (Glutose 15) 0 gm PO ONCE PRN; Protocol PRN Reason: Hypoglycemia Protocol Doxazosin Mesylate (Cardura) 8 mg PO DAILY [facility] Last Admin: 10/01/18 08:28 Dose: 8 mg Famotidine (Pepcid) 40 mg PO DAILY [facility] Last Admin: 10/01/18 08:27 Dose: 40 mg Furosemide (Lasix) 20 mg PO DAILY [facility] Last Admin: 10/01/18 08:28 Dose: 20 mg Glucagon (Glucagen Diagnostic Kit) 0 mg IM STAT PRN; Protocol PRN Reason: Hypoglycemia Protocol Heparin Sodium (Porcine) (Heparin) 5,000 units SC Q8 [facility]; Protocol Last Admin: 10/02/18 00:07 Dose: 5,000 units Amiodarone HCl 450 mg/ Sodium (Chloride) 259 mls @ 34.53 mls/hr IV .Q7H31M [facility]; Protocol Last Admin: 10/01/18 07:22 Dose: 0.5 mg/min, 17.27 mls/hr Insulin Human Lispro (Humalog) 0 units SC ACHS [facility]; Protocol Last Admin: 10/01/18 22:29 Dose: Not Given Levothyroxine Sodium (Synthroid) 50 mcg PO DAILY@0630 [facility] Last Admin: 10/02/18 05:43 Dose: 50 mcg Metoprolol Tartrate (Lopressor) 50 mg PO Q12 [facility] Last Admin: 10/01/18 20:44 Dose: 50 mg Multivitamins/Minerals (Therapeutic-M Tab) 1 tab PO DAILY [facility] Last Admin: 10/01/18 08:25 Dose: 1 tab Ranolazine (Ranexa) 1,000 mg PO BID [facility] - Labs Labs: 10/02/18 04:20 10/02/18 04:20 PT 11.8 Seconds (9.8-13.1) 09/30/18 17:05 INR 1.0 09/30/18 17:05 APTT 30.9 Seconds (25.6-37.1) 09/30/18 17:05 - Constitutional Appears: Well, Non-toxic, No Acute Distress - Head Exam Head Exam: ATRAUMATIC, NORMOCEPHALIC - Eye Exam Eye Exam: EOMI, PERRL - Respiratory Exam Respiratory Exam: Clear to Auscultation Bilateral, NORMAL BREATHING PATTERN - Cardiovascular Exam Cardiovascular Exam: +S1, +S2 - GI/Abdominal Exam GI & Abdominal Exam: Soft. absent: Tenderness - Extremities Exam Extremities exam: Positive for: pedal pulses present. 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 Can continue amio C/w ASA Plavix STATIN BB Ranexa Further recs per Dr. Baer <Aaron Baer - Last Filed: 10/03/18 19:30> Objective - Vital Signs/Intake and Output Vital Signs (last 24 hours): Temp Pulse Resp BP Pulse Ox 98.7 F 69 12 107/75 93 L 10/03/18 16:00 10/03/18 16:00 10/03/18 16:00 10/03/18 16:00 10/03/18 16:00 Intake and Output: 10/03/18 10/04/18 18:59 06:59 Output Total 800 Balance -800 - Labs Labs: 10/03/18 04:50 10/03/18 04:50 PT 11.8 Seconds (9.8-13.1) 09/30/18 17:05 INR 1.0 09/30/18 17:05 APTT 30.9 Seconds (25.6-37.1) 09/30/18 17:05 Attending/Attestation - Attestation I have personally seen and examined this patient.: Yes I have fully participated in the care of the patient.: Yes I have reviewed all pertinent clinical information, including history, physical exam and plan: Yes
[2018-10-02] MEDS: Ranolazine 500 mg Extended Release Tablets PO SCH ×2 (10:03→23:45)
[2018-10-02] MEDS: Multivitamin With Minerals Tab PO SCH (10:03)
[2018-10-02] MEDS: Cilostazol 100 mg Tab UD PO SCH ×2 (10:03→23:50)
[2018-10-02] MEDS: Insulin Lispro (humaLOG) 100 Units/ml Inj SC SCH ×2 (11:43→23:45)
[2018-10-03 05:33] LABS: HEMOGLOBIN 13.5 g/dL (12.0-18.0); MEAN CELL VOLUME 93.9 fl (80.0-94.0); MEAN CORPUSCULAR HEMOGLOBIN 31.7 pg (27.0-31.0); MEAN CORPUSCULAR HGB CONC 33.8 g/dL (33.0-37.0); RBC 4.26 Mil/uL (4.40-5.90); RED CELL DISTRIBUTION WIDTH 13.1 % (11.5-14.5); WHITE BLOOD COUNT 7.5 K/uL (4.8-10.8)
[2018-10-03 05:56] LABS: ALB/GLOB RATIO 1.1 (1.0-2.1); ALBUMIN 3.8 g/dL (3.5-5.0); ALT/SGPT 35 U/L (21-72); AST/SGOT 27 U/L (17-59); BLOOD UREA NITROGEN 22 mg/dl (9-20); GFR NON-AFRICAN AMERICAN > 60
[2018-10-03] MEDS: Levothyroxine 50 MCG TAB PO SCH (06:04)
[2018-10-03] MEDS: Insulin Lispro (humaLOG) 100 Units/ml Inj SC SCH ×2 (06:51→12:47)
[2018-10-03] MEDS: Artificial Tears Opht Soln OU PRN (08:38)
[2018-10-03] MEDS: Omega-3-Acid Ethyl Esters 1 GM Cap PO SCH ×2 (08:42→16:14)
[2018-10-03] MEDS: Cilostazol 100 mg Tab UD PO SCH (08:43)
[2018-10-03] MEDS: Ranolazine 500 mg Extended Release Tablets PO SCH ×2 (08:44→16:15)
[2018-10-03] MEDS: Multivitamin With Minerals Tab PO SCH (08:44)
[2018-10-03] MEDS ORDERED: Promethazine 6.25 MG/5 ML CUP PO PRN (14:03)
--- NOTE | 2018-10-03 14:15 | CP.PCM.PN ---
<Pasquale Ralph - Last Filed: 10/03/18 19:27> Subjective - Date & Time of Evaluation Date of Evaluation: 10/03/18 Time of Evaluation: 19:27 - Subjective Subjective: Pasquale Ralph DO PGY1 - Internal Medicine Manager Recruiting - Cardiology Note for Dr. Baer Patient was seen and evaluated at bedside; discussed cath results w/ patient. Notified patient that disease is spastic in nature. He will need to follow up with Dr. Fagan as outpt. Objective - Vital Signs/Intake and Output Vital Signs (last 24 hours): Temp Pulse Resp BP Pulse Ox 97.2 F L 72 10 L 112/54 L 95 10/03/18 12:00 10/03/18 12:00 10/03/18 12:00 10/03/18 12:00 10/03/18 12:00 Intake and Output: 10/03/18 10/03/18 06:59 18:59 Intake Total 360 Output Total 400 Balance -40 - Medications Medications: Current Medications Amiodarone HCl (Cordarone) 200 mg PO DAILY [facility] Last Admin: 10/03/18 08:41 Dose: 200 mg Artificial Tears (Artificial Tears) 2 drop OU Q4 PRN PRN Reason: Dry eyes Last Admin: 10/03/18 08:38 Dose: 2 drop Aspirin (Ecotrin) 81 mg PO DAILY [facility] Last Admin: 10/03/18 08:41 Dose: 81 mg Atorvastatin Calcium (Lipitor) 40 mg PO HS [facility] Last Admin: 10/02/18 23:45 Dose: 40 mg Calcitriol (Rocaltrol) 0.5 mcg PO DAILY [facility] Last Admin: 10/03/18 08:44 Dose: 0.5 mcg Cilostazol (Pletal) 100 mg PO Q12 [facility] Last Admin: 10/03/18 08:43 Dose: 100 mg Clopidogrel Bisulfate (Plavix) 75 mg PO DAILY [facility] Last Admin: 10/03/18 08:43 Dose: 75 mg Dextrose (Dextrose 50% Inj) 0 ml IV STAT PRN; Protocol PRN Reason: Hypoglycemia Protocol Dextrose (Glutose 15) 0 gm PO ONCE PRN; Protocol PRN Reason: Hypoglycemia Protocol Diltiazem HCl (Cardizem) 30 mg PO DAILY [facility] Last Admin: 10/03/18 08:39 Dose: 30 mg Doxazosin Mesylate (Cardura) 8 mg PO DAILY [facility] Last Admin: 10/03/18 08:40 Dose: 8 mg Famotidine (Pepcid) 40 mg PO DAILY [facility] Last Admin: 10/03/18 08:43 Dose: 40 mg Furosemide (Lasix) 20 mg PO DAILY [facility] Last Admin: 10/03/18 08:41 Dose: 20 mg Glucagon (Glucagen Diagnostic Kit) 0 mg IM STAT PRN; Protocol PRN Reason: Hypoglycemia Protocol Heparin Sodium (Porcine) (Heparin) 5,000 units SC Q8 [facility]; Protocol Last Admin: 10/03/18 08:41 Dose: 5,000 units Amiodarone HCl 450 mg/ Sodium (Chloride) 259 mls @ 34.53 mls/hr IV .Q7H31M [facility]; Protocol Last Admin: 10/01/18 07:22 Dose: 0.5 mg/min, 17.27 mls/hr Insulin Human Lispro (Humalog) 0 units SC ACHS [facility]; Protocol Last Admin: 10/03/18 12:47 Dose: Not Given Levothyroxine Sodium (Synthroid) 50 mcg PO DAILY@0630 [facility] Last Admin: 10/03/18 06:04 Dose: 50 mcg Metoprolol Tartrate (Lopressor) 50 mg PO Q12 [facility] Last Admin: 10/03/18 08:42 Dose: 50 mg Multivitamins/Minerals (Therapeutic-M Tab) 1 tab PO DAILY [facility] Last Admin: 10/03/18 08:44 Dose: 1 tab [id number] Ethyl Esters (Lovaza) 2 gm PO BID [facility] Last Admin: 10/03/18 08:42 Dose: 2 gm Promethazine HCl (Phenergan Syrup) 6.25 mg PO Q6 PRN PRN Reason: Cough Ranolazine (Ranexa) 1,000 mg PO BID [facility] Last Admin: 10/03/18 08:44 Dose: 1,000 mg - Labs Labs: 10/03/18 04:50 10/03/18 04:50 PT 11.8 Seconds (9.8-13.1) 09/30/18 17:05 INR 1.0 09/30/18 17:05 APTT 30.9 Seconds (25.6-37.1) 09/30/18 17:05 - Constitutional Appears: Well, Non-toxic, No Acute Distress - Head Exam Head Exam: ATRAUMATIC, NORMOCEPHALIC - Eye Exam Eye Exam: EOMI, PERRL - Respiratory Exam Respiratory Exam: Clear to Auscultation Bilateral, NORMAL BREATHING PATTERN - Cardiovascular Exam Cardiovascular Exam: +S1, +S2 - GI/Abdominal Exam GI & Abdominal Exam: Soft. absent: Tenderness - Extremities Exam Extremities exam: Positive for: pedal pulses present. Negative for: pedal edema - Neurological Exam Neurological exam: Alert, Oriented x3 - Psychiatric Exam Psychiatric exam: Normal Affect, Normal Mood - Skin Skin Exam: Dry, Normal Color, Warm Assessment and Plan (1) CAD (coronary artery disease) Status: Acute (2) Palpitations Status: Acute (3) Shortness of breath Status: Acute - Assessment and Plan (Free Text) Plan: Microvascular Coronary Vasospasm on cardiac cath Patient remained hypotensive and unable to tolerate cardizem for spastic disease. Can consider resuming cardizem when pressure further stabilizes. OK to DC w/ ASA Plavix STATIN BB Ranexa Vascepa Amio Further recs per Dr. Baer <Aaron Baer - Last Filed: 10/03/18 19:36> Objective - Vital Signs/Intake and Output Vital Signs (last 24 hours): Temp Pulse Resp BP Pulse Ox 98.7 F 69 12 107/75 93 L 10/03/18 16:00 10/03/18 16:00 10/03/18 16:00 10/03/18 16:00 10/03/18 16:00 Intake and Output: 10/03/18 10/04/18 18:59 06:59 Output Total 800 Balance -800 - Labs Labs: 10/03/18 04:50 10/03/18 04:50 PT 11.8 Seconds (9.8-13.1) 09/30/18 17:05 INR 1.0 09/30/18 17:05 APTT 30.9 Seconds (25.6-37.1) 09/30/18 17:05 Attending/Attestation - Attestation I have personally seen and examined this patient.: Yes I have fully participated in the care of the patient.: Yes I have reviewed all pertinent clinical information, including history, physical exam and plan: Yes
[2018-10-03 16:14] VITALS: BP 107/75; PULSE 69; RESP 12; TEMP 98.7; O2SAT 93
--- NOTE | 2018-10-03 16:33 | CP.PCM.PN ---
Subjective - Date & Time of Evaluation Date of Evaluation: 10/02/18 Time of Evaluation: 12:55 Objective - Vital Signs/Intake and Output Vital Signs (last 24 hours): Temp Pulse Resp BP Pulse Ox 98.7 F 69 12 107/75 93 L 10/03/18 16:00 10/03/18 16:00 10/03/18 16:00 10/03/18 16:00 10/03/18 16:00 Intake and Output: 10/03/18 10/03/18 06:59 18:59 Intake Total 360 Output Total 400 Balance -40 - Medications Medications: Current Medications Amiodarone HCl (Cordarone) 200 mg PO DAILY [facility] Last Admin: 10/03/18 08:41 Dose: 200 mg Artificial Tears (Artificial Tears) 2 drop OU Q4 PRN PRN Reason: Dry eyes Last Admin: 10/03/18 08:38 Dose: 2 drop Aspirin (Ecotrin) 81 mg PO DAILY [facility] Last Admin: 10/03/18 08:41 Dose: 81 mg Atorvastatin Calcium (Lipitor) 40 mg PO HS [facility] Last Admin: 10/02/18 23:45 Dose: 40 mg Calcitriol (Rocaltrol) 0.5 mcg PO DAILY [facility] Last Admin: 10/03/18 08:44 Dose: 0.5 mcg Cilostazol (Pletal) 100 mg PO Q12 [facility] Last Admin: 10/03/18 08:43 Dose: 100 mg Clopidogrel Bisulfate (Plavix) 75 mg PO DAILY [facility] Last Admin: 10/03/18 08:43 Dose: 75 mg Dextrose (Dextrose 50% Inj) 0 ml IV STAT PRN; Protocol PRN Reason: Hypoglycemia Protocol Dextrose (Glutose 15) 0 gm PO ONCE PRN; Protocol PRN Reason: Hypoglycemia Protocol Diltiazem HCl (Cardizem) 30 mg PO DAILY [facility] Last Admin: 10/03/18 08:39 Dose: 30 mg Doxazosin Mesylate (Cardura) 8 mg PO DAILY [facility] Last Admin: 10/03/18 08:40 Dose: 8 mg Famotidine (Pepcid) 40 mg PO DAILY [facility] Last Admin: 10/03/18 08:43 Dose: 40 mg Furosemide (Lasix) 20 mg PO DAILY [facility] Last Admin: 10/03/18 08:41 Dose: 20 mg Glucagon (Glucagen Diagnostic Kit) 0 mg IM STAT PRN; Protocol PRN Reason: Hypoglycemia Protocol Heparin Sodium (Porcine) (Heparin) 5,000 units SC Q8 [facility]; Protocol Last Admin: 10/03/18 16:13 Dose: 5,000 units Amiodarone HCl 450 mg/ Sodium (Chloride) 259 mls @ 34.53 mls/hr IV .Q7H31M [facility]; Protocol Last Admin: 10/01/18 07:22 Dose: 0.5 mg/min, 17.27 mls/hr Insulin Human Lispro (Humalog) 0 units SC ACHS [facility]; Protocol Last Admin: 10/03/18 12:47 Dose: Not Given Levothyroxine Sodium (Synthroid) 50 mcg PO DAILY@0630 [facility] Last Admin: 10/03/18 06:04 Dose: 50 mcg Metoprolol Tartrate (Lopressor) 50 mg PO Q12 [facility] Last Admin: 10/03/18 08:42 Dose: 50 mg Multivitamins/Minerals (Therapeutic-M Tab) 1 tab PO DAILY [facility] Last Admin: 10/03/18 08:44 Dose: 1 tab [id number] Ethyl Esters (Lovaza) 2 gm PO BID [facility] Last Admin: 10/03/18 16:14 Dose: 2 gm Promethazine HCl (Phenergan Syrup) 6.25 mg PO Q6 PRN PRN Reason: Cough Last Admin: 10/03/18 14:50 Dose: 6.25 mg Ranolazine (Ranexa) 1,000 mg PO BID [facility] Last Admin: 10/03/18 16:15 Dose: 1,000 mg - Labs Labs: 10/03/18 04:50 10/03/18 04:50 PT 11.8 Seconds (9.8-13.1) 09/30/18 17:05 INR 1.0 09/30/18 17:05 APTT 30.9 Seconds (25.6-37.1) 09/30/18 17:05 Assessment and Plan (1) [id number] renal failure Status: Acute (2) DVT prophylaxis Status: Acute (3) Palpitations Status: Acute (4) Wide-complex tachycardia Status: Acute (5) Acute chest pain Status: Acute
--- NOTE | 2018-10-03 23:25 | CP.PCM.DIS ---
Provider - Provider Date of Admission: 09/30/18 20:42 Attending physician: Marito Cook MD Consults: 10/01/18 01:24 Social Work Referral Routine Comment: lives alone Physician Instructions: Reason For Exam: new admission Time Spent in preparation of Discharge (in minutes): 25 Diagnosis - Discharge Diagnosis (1) [id number] renal failure Status: Acute (2) DVT prophylaxis Status: Acute (3) Palpitations Status: Acute (4) Wide-complex tachycardia Status: Acute (5) Acute chest pain Status: Acute Hospital Course - Lab Results Lab Results: Micro Results 09/30/18 08:02 Naris MRSA Culture (Admit) - Final MRSA NOT DETECTED Most Recent Lab Values WBC 7.5 K/uL (4.8-10.8) 10/03/18 04:50 RBC 4.26 Mil/uL (4.40-5.90) L 10/03/18 04:50 Hgb 13.5 g/dL (12.0-18.0) 10/03/18 04:50 Hct 40.0 % (35.0-51.0) 10/03/18 04:50 MCV 93.9 fl (80.0-94.0) 10/03/18 04:50 MCH 31.7 pg (27.0-31.0) H 10/03/18 04:50 MCHC 33.8 g/dL (33.0-37.0) 10/03/18 04:50 RDW 13.1 % (11.5-14.5) 10/03/18 04:50 Plt Count 154 K/uL (130-400) 10/03/18 04:50 MPV 10.4 fl (7.2-11.7) 10/01/18 04:30 Neut % (Auto) 49.1 % (50.0-75.0) L 10/01/18 04:30 Lymph % (Auto) 37.2 % (20.0-40.0) 10/01/18 04:30 Irion % (Auto) 8.9 % (0.0-10.0) 10/01/18 04:30 Eos % (Auto) 4.5 % (0.0-4.0) H 10/01/18 04:30 Baso % (Auto) 0.3 % (0.0-2.0) 10/01/18 04:30 Neut # (Auto) 3.8 K/uL (1.8-7.0) 10/01/18 04:30 Lymph # (Auto) 2.9 K/uL (1.0-4.3) 10/01/18 04:30 Irion # (Auto) 0.7 K/uL (0.0-0.8) 10/01/18 04:30 Eos # (Auto) 0.3 K/uL (0.0-0.7) 10/01/18 04:30 Baso # (Auto) 0.0 K/uL (0.0-0.2) 10/01/18 04:30 PT 11.8 Seconds (9.8-13.1) 09/30/18 17:05 INR 1.0 09/30/18 17:05 APTT 30.9 Seconds (25.6-37.1) 09/30/18 17:05 Sodium 140 mmol/l (132-148) 10/03/18 04:50 Potassium 3.9 MMOL/L (3.6-5.0) 10/03/18 04:50 Chloride 99 mmol/L (98-107) 10/03/18 04:50 Carbon Dioxide 27 mmol/L (22-30) 10/03/18 04:50 Anion Gap 18 (10-20) 10/03/18 04:50 BUN 22 mg/dl (9-20) H 10/03/18 04:50 Creatinine 1.1 mg/dl (0.8-1.5) 10/03/18 04:50 Est GFR ( Amer) > 60 10/03/18 04:50 Est GFR (Non-Af Amer) > 60 10/03/18 04:50 POC Glucose (mg/dL) 105 mg/dL (65-110) 10/03/18 16:43 Random Glucose 93 mg/dL (75-110) 10/03/18 04:50 Calcium 9.0 mg/dL (8.4-10.2) 10/03/18 04:50 Phosphorus 4.5 mg/dl (2.5-4.5) 09/30/18 17:05 Magnesium 1.7 MG/DL (1.6-2.3) 09/30/18 17:05 Total Bilirubin 0.5 mg/dl (0.2-1.3) 10/03/18 04:50 AST 27 U/L (17-59) 10/03/18 04:50 ALT 35 U/L (21-72) 10/03/18 04:50 Alkaline Phosphatase 58 U/L (38-126) 10/03/18 04:50 Troponin I < 0.0120 ng/mL (0.00-0.120) 10/01/18 08:20 NT-Pro-B Natriuret Pep 427 pg/ml (0-900) 09/30/18 17:05 Total Protein 7.1 G/DL (6.3-8.2) 10/03/18 04:50 Albumin 3.8 g/dL (3.5-5.0) 10/03/18 04:50 Globulin 3.3 gm/dL (2.2-3.9) 10/03/18 04:50 Albumin/Globulin Ratio 1.1 (1.0-2.1) 10/03/18 04:50 Lipase 113 U/L (23-300) 09/30/18 17:05 TSH 3rd Generation 4.09 mIU/ML (0.46-4.68) 09/30/18 17:05 Urine Color Yellow (YELLOW) 09/30/18 18:42 Urine Clarity Slighty-cloudy (Clear) 09/30/18 18:42 Urine pH 5.0 (5.0-8.0) 09/30/18 18:42 Ur Specific Clark 1.014 (1.003-1.030) 09/30/18 18:42 Urine Protein Negative mg/dL (NEGATIVE) 09/30/18 18:42 Urine Glucose (UA) Neg mg/dL (NEGATIVE) 09/30/18 18:42 Urine Ketones Negative mg/dL (NEGATIVE) 09/30/18 18:42 Urine Blood Negative (NEGATIVE) 09/30/18 18:42 Urine Nitrate Negative (NEGATIVE) 09/30/18 18:42 Urine Bilirubin Negative (NEGATIVE) 09/30/18 18:42 Urine Urobilinogen 0.2-1.0 mg/dL (0.2-1.0) 09/30/18 18:42 Ur Leukocyte Esterase Neg Anya/uL (Negative) 09/30/18 18:42 Urine RBC (Auto) 3 /hpf (0-3) 09/30/18 18:42 Urine Microscopic WBC 3 /hpf (0-5) 09/30/18 18:42 Hyaline Casts 6-10 /hpf (0-2) H 09/30/18 18:42 Influenza Typ A,B (EIA) Negative for flu a/b (NEGATIVE) 09/30/18 17:05 Discharge Exam - Head Exam Head Exam: ATRAUMATIC, NORMAL INSPECTION, NORMOCEPHALIC Discharge Plan - Discharge Medications Prescriptions: Amiodarone [Cordarone] 200 mg PO DAILY #30 tab Ranolazine [Ranexa] 1,000 mg PO BID #60 tab.er.12h - Follow Up Plan Condition: FAIR Disposition: HOME/ ROUTINE Instructions: Tachycardia (DC)
== END 2018-10-03 19:20 | disposition home or self-care (01) | DRG 683 ==
LOC: H.ER 16:01 → H.ERHOLD 20:42 → H.ICU/CCU 23:07
PROVIDERS: ADMIT Internal Medicine; ATTEND Internal Medicine
DX: N17.9 Acute kidney failure, unspecified (principal); I47.2 Ventricular tachycardia; I25.10 Atherosclerotic heart disease of native coronary artery without angina pectoris; I45.10 Unspecified right bundle-branch block; M19.90 Unspecified osteoarthritis, unspecified site; E78.00 Pure hypercholesterolemia, unspecified; E03.9 Hypothyroidism, unspecified; I34.1 Nonrheumatic mitral (valve) prolapse; Z95.5 Presence of coronary angioplasty implant and graft; Z86.73 Personal history of transient ischemic attack (TIA), and cerebral infarction without residual deficits; J44.9 Chronic obstructive pulmonary disease, unspecified; J32.2 Chronic ethmoidal sinusitis; F41.9 Anxiety disorder, unspecified; N18.9 Chronic kidney disease, unspecified; I12.9 Hypertensive chronic kidney disease with stage 1 through stage 4 chronic kidney disease, or unspecified chronic kidney disease; E11.22 Type 2 diabetes mellitus with diabetic chronic kidney disease

== ENCOUNTER 2018-10-18 06:43 | Inpatient (IN) | payer MEDICARE ==
[2018-10-18 06:43] VITALS: BMI 30.5
--- NOTE | 2018-10-18 07:47 | ED PDOC ---
Syncope/Near Syncope/Dizziness Time Seen by Provider: 10/18/18 07:28 Chief Complaint (Nursing): Syncope Chief Complaint (Provider): Syncope History Per: Patient History/Exam Limitations: other (patient is a poor historian) Current Symptoms Are (Timing): Gone Now Number Of Syncopal Episodes: 1 Associated Symptoms Preceding Syncopal Episode: No Predromal Symptoms (Sudden Onset) Seizure Or Post-ictal Symptoms: None Additional History Per: Patient Additional Complaint(s): 77yo male with history of "heart disease", diabetes, comes to ER for evaluation after he had a witnessed syncopal episode this morning. Patient states he got up this morning, took his blood pressure medications and a laxative (recently constipated) and was told by his son that he fainted while in the bathroom. Patient states he was lying on the floor when he woke up, and denies any head injury; patient unable to recall the syncopal episode. He also reports prior to the syncopal episode, he did not feel dizzy, lightheaded or "sick." He currently reports a muscle cramp to right upper back, but denies any headache, weakness, numbness, chest pain, or shortness of breath. Of note, patient is alone in ER room, unable to describe his medications and unable to recall his PMD. Patient is a poor historian. NIHSS Stroke Scale - Date/Time Evaluation Performed Date Performed: 10/18/18 Time Performed: 07:28 When Was NIHSS Performed: Baseline - How Severe is the Stroke Level of Consciousness: 0=Alert LOC to Questions: 0=Both comments correct LOC to commands: 0=Obeys both correctly Visual: 0=No visual loss Facial: 0=Normal Motor Arm - Left: 0=No drift Motor Arm - Right: 0=No drift Motor Leg - Left: 0=No drift Motor Leg - Right: 0=No drift Limb Ataxia: 0=Absent Sensory: 0=Normal Best Language: 0=No aphasia Dysarthia: 0=Normal articulation Extinction & Inattention (Neglect): 0=Normal, no object Past Medical History Reviewed: Historical Data, Nursing Documentation, Vital Signs Vital Signs: Last Vital Signs Temp 97.8 F 10/18/18 06:49 Pulse 88 10/18/18 06:49 Resp 16 10/18/18 06:49 BP 101/62 10/18/18 06:49 Pulse Ox 94 L 10/18/18 06:49 - Medical History PMH: Arthritis (Osteoarthritis), CAD (with stent), Diabetes, Gastritis, HTN, Hypercholesterolemia, Hypothyroidism, Mitral Valve Prolapse, TIA Denies: Fractures, HIV, Chronic Kidney Disease - Surgical History Surgical History: Denies: Pacemaker - Family History Family History: States: No Known Family Hx - Home Medications Home Medications: Ambulatory Orders Medication Instructions Recorded RX: Aspirin [Ecotrin] 81 mg PO DAILY 06/20/17 RX: Clopidogrel [Plavix] 75 mg PO DAILY 06/20/17 RX: Calcitriol [Rocaltrol] 0.5 mcg PO DAILY 09/30/18 RX: Cilostazol [Pletal] 100 mg PO BID 09/30/18 RX: Doxazosin Mesylate 8 mg PO HS 09/30/18 RX: Famotidine [Pepcid] 40 mg PO DAILY 09/30/18 RX: Levothyroxine [Synthroid] 50 mcg PO DAILY 09/30/18 RX: Losartan/Hydrochlorothiazide 1 tab PO DAILY 09/30/18 [Hyzaar 100-12.5 Tablet] RX: Amiodarone [Cordarone] 200 mg PO DAILY #30 tab 10/03/18 Ranolazine [Ranexa] 1,000 mg PO BID #60 tab.er.12h 10/03/18 Furosemide [Lasix] 20 mg PO DAILY 10/18/18 Metoprolol Tartrate [Lopressor] 50 mg PO Q12 10/18/18 Multivitamin/Iron/Folic Acid 1 tab PO DAILY 10/18/18 [Centrum Complete Multivit Tab] Rosuvastatin Calcium [Crestor] 20 mg PO HS 10/18/18 amLODIPine [Norvasc] 5 mg PO DAILY 10/18/18 - Allergies Allergies/Adverse Reactions: Allergies Allergy/AdvReac Type Severity Reaction Status Date / Time No Known Allergies Allergy Verified 10/18/18 06:51 Review of Systems ROS Statement: Except As Marked, All Systems Reviewed And Found Negative Constitutional: Negative for: Fever, Chills, Sweats Cardiovascular: Negative for: Chest Pain Respiratory: Negative for: Shortness of Breath Gastrointestinal: Negative for: Nausea, Vomiting Musculoskeletal: Positive for: Back Pain (right upper back) Neurological: Positive for: Other (syncope). Negative for: Headache, Dizziness Physical Exam - Reviewed Nursing Documentation Reviewed: Yes Vital Signs Reviewed: Yes - Physical Exam Appears: Positive for: Non-toxic, No Acute Distress Head Exam: Positive for: ATRAUMATIC, NORMAL INSPECTION, NORMOCEPHALIC Skin: Positive for: Normal Color (no ecchymosis noted), Warm, Dry Eye Exam: Positive for: Normal appearance, EOMI, PERRL ENT: Positive for: Normal ENT Inspection Neck: Positive for: Normal, Supple Cardiovascular/Chest: Positive for: Regular Rate, Rhythm. Negative for: Murmur, Tachycardia Respiratory: Positive for: Normal Breath Sounds. Negative for: Wheezing, Respiratory Distress Gastrointestinal/Abdominal: Positive for: Normal Exam, Soft. Negative for: Tend erness Back: Positive for: Normal Inspection, Other (no ecchymosis or deformity noted to back). Negative for: L CVA Tenderness, R CVA Tenderness, Vertebral Tenderness Extremity: Positive for: Normal ROM (Full active ROM of all extremities), Capillary Refill (< 2 seconds), Other (normal distal sensation). Negative for: Pedal Edema, Deformity Neurologic/Psych: Positive for: Alert, Oriented. Negative for: Motor/Sensory De ficits - Laboratory Results Result Diagrams: 10/21/18 05:50 10/21/18 05:50 - ECG O2 Sat by Pulse Oximetry: 94 (RA) Medical Decision Making Medical Decision Making: Workup for reported syncopal episode Physical exam unremarkable Plan: -- labs -- CT Head w/o contrast -- Tylenol 975mg PO Will attempt to get further information from family 0908 CT Head FINDINGS: HEMORRHAGE: No intracranial hemorrhage. BRAIN: No mass effect or edema. Minimal age-appropriate atrophy. Mild patchy periventricular and deep/subcortical white matter lucency consistent with chronic microvascular ischemic change. No evidence of acute infarct. VENTRICLES: Unremarkable. No hydrocephalus. CALVARIUM: Unremarkable. PARANASAL SINUSES: Minimal chronic ethmoid sinusitis. MASTOID AIR CELLS: Unremarkable as visualized. No inflammatory changes. OTHER FINDINGS: None. IMPRESSION: No intracranial mass, hemorrhage or evidence of acute infarct. Age-appropriate atrophy and chronic white matter ischemic change. 1104 Discussed case with resident, patient admitted under Dr. Conte's service due to syncope Scribe Attestation: Documented by Petrona Julian acting as a scribe for Delicia Gaines MD Provider Attestation: All medical record entries made by the Scribe were at my direction and personally dictated by me. I have reviewed the chart and agree that the record accurately reflects my personal performance of the history, physical exam, [facility] decision making, and the department course for this patient. I have also personally directed, reviewed, and agree with the discharge instructions and disposition. Disposition - Clinical Impression Clinical Impression: Syncope and collapse - Patient ED Disposition Is Patient to be Admitted: Yes - Disposition Disposition Time: 11:04 Condition: GUARDED
[2018-10-18 08:03] LABS: BASO % 0.3 % (0.0-2.0); EOS # 0.3 K/uL (0.0-0.7); EOS % 2.8 % (0.0-4.0); HEMOGLOBIN 14.4 g/dL (12.0-18.0); LYMPH # 2.5 K/uL (1.0-4.3); LYMPH % 22.2 % (20.0-40.0); MEAN CELL VOLUME 95.3 fl (80.0-94.0); MEAN CORPUSCULAR HEMOGLOBIN 31.4 pg (27.0-31.0); MEAN CORPUSCULAR HGB CONC 32.9 g/dL (33.0-37.0); MEAN PLATELET VOLUME 9.7 fl (7.2-11.7); MONO # 0.8 K/uL (0.0-0.8); MONO % 6.9 % (0.0-10.0); NEUT # 7.5 K/uL (1.8-7.0); NEUT % 67.8 % (50.0-75.0); NRBC % 0.1 % (0.0-0.0); RBC 4.57 Mil/uL (4.40-5.90); RED CELL DISTRIBUTION WIDTH 13.4 % (11.5-14.5); WHITE BLOOD COUNT 11.1 K/uL (4.8-10.8)
[2018-10-18 08:14] LABS: PROTHROMBIN TIME 11.7 Seconds (9.8-13.1)
[2018-10-18 08:17] LABS: PARTIAL THROMBOPLASTIN TIME 28.1 Seconds (25.6-37.1)
[2018-10-18 09:01] LABS: VENOUS BLOOD GAS BASE EXCESS 1.4 mmol/L (0.0-2.0); VENOUS BLOOD GAS PCO2 56 mmHg (40-60); VENOUS BLOOD GAS PO2 15 mm/Hg (30-55); VENOUS BLOOD PH 7.32 (7.32-7.43)
--- NOTE | 2018-10-18 09:11 | CT ---
Date of service: 10/18/2018 PROCEDURE: CT HEAD WITHOUT CONTRAST. HISTORY: syncopy COMPARISON: 09/30/2018 TECHNIQUE: Axial computed tomography images were obtained through the head/brain without intravenous contrast. Radiation dose: Total exam DLP = 818.8 mGy-cm. This CT exam was performed using one or more of the following dose reduction techniques: Automated exposure control, adjustment of the mA and/or kV according to patient size, and/or use of iterative reconstruction technique. FINDINGS: HEMORRHAGE: No intracranial hemorrhage. BRAIN: No mass effect or edema. Minimal age-appropriate atrophy. Mild patchy periventricular and deep/subcortical white matter lucency consistent with chronic microvascular ischemic change. No evidence of acute infarct. VENTRICLES: Unremarkable. No hydrocephalus. CALVARIUM: Unremarkable. PARANASAL SINUSES: Minimal chronic ethmoid sinusitis. MASTOID AIR CELLS: Unremarkable as visualized. No inflammatory changes. OTHER FINDINGS: None. IMPRESSION: No intracranial mass, hemorrhage or evidence of acute infarct. Age-appropriate atrophy and chronic white matter ischemic change.
[2018-10-18 09:19] LABS: B-TYPE NATRIURETIC PEPTIDE 31.2 pg/ml (0-900); BLOOD UREA NITROGEN 55 mg/dl (9-20); CALCIUM 9.8 mg/dL (8.4-10.2); GFR NON-AFRICAN AMERICAN 33
[2018-10-18] MEDS ORDERED: Sodium Chloride 0.9% 1,000 ML IV STA (09:55)
--- NOTE | 2018-10-18 12:09 | CP.PCM.HP ---
<Sultan Armani - Last Filed: 10/18/18 13:44> History of Present Illness - History of Present Illness History of Present Illness: History obtained from patient and patients daughter at bedside in ED CC: Loss of consciousness HPI: 77 year old male with a past medical history significant for CAD s/p RCA stent in March 2017, DMII, HTN, HLD, BPH, hypothyroidism, MVR, OA, SVT and TIA presents to the emergency department for evaluation of witnessed syncopal episode this morning. Patient reports he woke up around 4 am this AM, he took his blood pressure medications and constipation medication. Patient reports after he returned from bathroom around 4:30 am, he was sitting in a high chair in the dining room where he fainted and fell to the right side of the chest. Patient reports he does not recall syncopal episode or its duration but it is witnessed by his nephew. Denies any chest pain, dyspnea or blurry vision prior to the episode. Patient does reports right sided rib pain. Denies hitting head. Denies any pain with deep breath. Denies any nausea, vomiting, cough, fever or focal weakness. Patient denies any hx syncope in the past. Patient does reports last night his SBP was in 70's-80's. Patient was recently admitted to [facility] on 10/01/18 due to palpitation and dyspnea, and had cardiac cath performed on 10/02/18. Today, Patient is admitted for evaluation of syncopal episode ROS: all 12 systems reviewed and negative except as mentioned in HPI PMD: Dr. Dougherty PMHx: CAD, DMII, HTN, HLD, hypothyroidism and TIA Surgery hx: Loop recorder implanted in April 2018. Multiple cardiac cath Social hx: Denies smoking cigarettes. Drinks alcohol once a month. Denies illicit drug uses Family hx: non-contributory Allergies: NKDA Medications: reviewed Present on Admission - Present on Admission Any Indicators Present on Admission: No History of DVT/PE: No Review of Systems - Review of Systems Review of Systems: All 12 systems reviewed and negative except as mentioned in HPI Past Patient History - Past Medical History & Family History Past Medical History?: Yes - Past Social History Smoking Status: Never Smoked - CARDIAC Hx Hypercholesterolemia: Yes Hx Hypertension: Yes Hx Mitral Valve Prolapse: Yes Hx Pacemaker: No - PULMONARY Hx Respiratory Disorders: No - NEUROLOGICAL Hx Transient Ischemic Attacks (TIA): Yes - HEENT Hx HEENT Problems: No - RENAL Hx Chronic Kidney Disease: No - ENDOCRINE/METABOLIC Hx Hypothyroidism: Yes - HEMATOLOGICAL/ONCOLOGICAL Hx Human Immunodeficiency Virus (HIV): No - INTEGUMENTARY Hx Dermatological Problems: No - MUSCULOSKELETAL/RHEUMATOLOGICAL Hx Arthritis: Yes (Osteoarthritis) Hx Fractures: No - GASTROINTESTINAL Hx Gastritis: Yes - GENITOURINARY/GYNECOLOGICAL Hx Genitourinary Disorders: No - PSYCHIATRIC Hx Psychophysiologic Disorder: No Hx Substance Use: No - SURGICAL HISTORY Hx Surgeries: Yes Hx Cataract Extraction: Yes Hx Cardiac Catheterization: Yes Other/Comment: appendicitis?? - ANESTHESIA Hx Anesthesia: Yes Hx Anesthesia Reactions: No Hx Malignant Hyperthermia: No Meds Allergies/Adverse Reactions: Allergies Allergy/AdvReac Type Severity Reaction Status Date / Time No Known Allergies Allergy Verified 10/18/18 06:51 Physical Exam - Constitutional Appears: Non-toxic, No Acute Distress - Head Exam Head Exam: ATRAUMATIC, NORMAL INSPECTION, NORMOCEPHALIC - Eye Exam Eye Exam: Normal appearance - ENT Exam ENT Exam: Mucous Membranes Moist, Normal Oropharynx - Neck Exam Neck exam: Positive for: Normal Inspection. Negative for: Meningismus - Respiratory Exam Respiratory Exam: Clear to Auscultation Bilateral, NORMAL BREATHING PATTERN. absent: Rhonchi, Wheezes Additional comments: Tenderness at the right lateral rib cage around 7-9 ribs - Cardiovascular Exam Cardiovascular Exam: +S1, +S2, Systolic Murmur - GI/Abdominal Exam GI & Abdominal Exam: Normal Bowel Sounds, Soft. absent: Tenderness - Extremities Exam Extremities exam: Positive for: normal inspection. Negative for: calf tenderness - Neurological Exam Neurological exam: Alert, CN II-XII Intact, Oriented x3 Additional comments: NIHSS 0 - Psychiatric Exam Psychiatric exam: Normal Affect, Normal Mood - Skin Skin Exam: Normal Color Results - Vital Signs Recent Vital Signs: Last Vital Signs Temp 97.8 F 10/18/18 09:54 Pulse 108 H 10/18/18 09:54 Resp 18 10/18/18 09:54 BP 92/84 L 10/18/18 09:54 Pulse Ox 94 L 10/18/18 11:51 - Labs Result Diagrams: 10/18/18 07:55 10/18/18 08:45 Labs: Laboratory Results - last 24 hr 10/18/18 10/18/18 10/18/18 06:47 07:47 07:55 WBC 11.1 H RBC 4.57 Hgb 14.4 Hct 43.6 MCV 95.3 H MCH 31.4 H MCHC 32.9 L RDW 13.4 Plt Count 251 MPV 9.7 Neut % (Auto) 67.8 Lymph % (Auto) 22.2 [place] % (Auto) 6.9 Eos % (Auto) 2.8 Baso % (Auto) 0.3 Neut # (Auto) 7.5 H Lymph # (Auto) 2.5 [place] # (Auto) 0.8 Eos # (Auto) 0.3 Baso # (Auto) 0.0 PT INR APTT pO2 15 L VBG pH 7.32 VBG pCO2 56 VBG HCO3 23.7 VBG Total CO2 30.6 H VBG O2 Sat (Calc) 23.5 L VBG Base Excess 1.4 VBG Potassium 3.9 Sodium 137.0 Chloride 100.0 Glucose 129 H Lactate 3.1 H FiO2 21.0 Potassium Carbon Dioxide Anion Gap BUN Creatinine Est GFR ( Amer) Est GFR (Non-Af Amer) POC Glucose (mg/dL) 129 H Random Glucose Calcium Troponin I NT-Pro-B Natriuret Pep Venous Blood Potassium 3.9 Blood Type Antibody Screen BBK History Checked 10/18/18 10/18/18 10/18/18 07:55 08:45 08:45 WBC RBC Hgb Hct MCV MCH MCHC RDW Plt Count MPV Neut % (Auto) Lymph % (Auto) [place] % (Auto) Eos % (Auto) Baso % (Auto) Neut # (Auto) Lymph # (Auto) [place] # (Auto) Eos # (Auto) Baso # (Auto) PT 11.7 INR 1.0 APTT 28.1 pO2 VBG pH VBG pCO2 VBG HCO3 VBG Total CO2 VBG O2 Sat (Calc) VBG Base Excess VBG Potassium Sodium 139 Chloride 97 L Glucose Lactate FiO2 Potassium 4.9 Carbon Dioxide 23 Anion Gap 24 H BUN 55 H Creatinine 2.0 H Est GFR ( Amer) 39 Est GFR (Non-Af Amer) 33 POC Glucose (mg/dL) Random Glucose 123 H Calcium 9.8 Troponin I < 0.0120 NT-Pro-B Natriuret Pep 31.2 Venous Blood Potassium Blood Type Cancelled Antibody Screen Cancelled BBK History Checked Cancelled Assessment & Plan (2) CAD (coronary artery disease) Status: Acute (3) HTN (hypertension) Status: Acute (6) Syncope Status: Acute (7) Tehtu-yb-[id number] renal failure Status: Acute - Assessment and Plan (Free Text) Assessment: Assessment: 77 year old male with a past medical history significant for CAD s/p RCA stent in 2016, DMII, HTN, HLD, BPH, hypothyroidism, MVR, OA, SVT and TIA admitted for evaluation of witnessed syncopal episode, likely secondary to hypotension Plan: -Admit to Telemetry -Head CT: IMPRESSION: No intracranial mass, hemorrhage or evidence of acute infarct. Age-appropriate atrophy and chronic white matter ischemic change. -ECG: nsr @89, RBBB (chronic) -Troponin x1 neg -Neuro consult, Dr. Grossman, f/u recommendation -CTA head/neck ordered but patient's GFR is 33, therefore it was cancelled -f/u US carotid duplex -Cardiology consult, Dr. Baer, f/u recommendation -Patient recently had cardiac cath on 10/02/18: impression: nonobstructive coronary artery disease, severe endothelial dysfunction with vasospastic disease, ectatic coronary aftery disease. -patient's BP is low. Will hold norvasc, lisinopril/hctz, metoprolol for now -c/w aspirin, plavix, statin, amiodarone -start NS@100 cc/hr -PT/OT eval -Heart healthy diet -Rest of the plan as ordered Plan discussed with Dr. Conte <Norman Conte - Last Filed: 10/22/18 12:17> Results - Vital Signs Recent Vital Signs: Last Vital Signs Temp 98.6 F 10/22/18 09:00 Pulse 73 10/22/18 09:31 Resp 18 10/22/18 09:00 BP 142/87 10/22/18 09:31 Pulse Ox 97 10/22/18 09:00 - Labs Result Diagrams: 10/21/18 05:50 10/21/18 05:50 Labs: Laboratory Results - last 24 hr 10/19/18 04:30 PTH Intact Whole Molec 33 Assessment & Plan - Assessment and Plan (Free Text) Assessment: Patient was personally seen and examined by me in rounds with residents. Available labs and diagnostic data reviewed. Case, Patient's condition and management plan discussed with residents in rounds. Agree with resident's progress note. Plan: As ordered.
--- NOTE | 2018-10-18 14:23 | RAD ---
Date of service: 10/18/2018 HISTORY: possible admission COMPARISON: 09/30/2008. FINDINGS: LUNGS: No active pulmonary disease. PLEURA: No significant pleural effusion identified, no pneumothorax apparent. CARDIOVASCULAR: Atherosclerotic calcifications identified primarily aortic arch. No radiographic findings to suggest acute or significant cardiovascular disease. Incidental finding(s): Event recorder again identified anterior chest wall. OSSEOUS STRUCTURES: No significant abnormalities. VISUALIZED UPPER ABDOMEN: Normal. OTHER FINDINGS: None. IMPRESSION: No active disease. No significant interval change compared to the prior examination(s).
--- NOTE | 2018-10-18 14:46 | RAD ---
Date of service: 10/18/2018 PROCEDURE: Radiographs of the Chest and Right Ribs. HISTORY: right sided rib pain s/p syncope and fall COMPARISON: None available. TECHNIQUE: Frontal radiograph of the chest and multiple oblique radiographs of the right ribs were obtained. FINDINGS: RIGHT RIBS: No fracture or focal lesion visualized. LUNGS: Clear. PLEURA: No pneumothorax or pleural fluid. CARDIOVASCULAR: Normal cardiac size. No pulmonary vascular congestion. No aortic atherosclerotic calcification present OTHER FINDINGS: None. IMPRESSION: Unremarkable radiographs of the chest and right ribs. No right rib fracture.
[2018-10-18] MEDS: Sodium Chloride 0.9% 1,000 ML IV SCH (18:00)
--- NOTE | 2018-10-18 19:26 | CP.PCM.CON ---
History of Present Illness - History of Present Illness History of Present Illness: pt is seen and examined, full consult is dictated #[id number] 1. Renal failure, most likley Zackary , ? pre frenal 2. Dehydration 3. Hypotension 4. syncopal episode c/w ivf ns at 100 ml/hr check bmp in am, po4, pth intact check urine lytes,osm, cr agree to hold anti htn meds until sbp is >120 Past Patient History - Past Medical History & Family History Past Medical History?: Yes - Past Social History Smoking Status: Former Smoker - CARDIAC Hx Hypercholesterolemia: Yes Hx Hypertension: Yes Hx Mitral Valve Prolapse: Yes Hx Pacemaker: No Other/Comment: Has a monitor in his heart, unable to remember what it is called - PULMONARY Hx Respiratory Disorders: No - NEUROLOGICAL Hx Transient Ischemic Attacks (TIA): Yes - HEENT Hx HEENT Problems: No - RENAL Hx Chronic Kidney Disease: No - ENDOCRINE/METABOLIC Hx Hypothyroidism: Yes - HEMATOLOGICAL/ONCOLOGICAL Hx Human Immunodeficiency Virus (HIV): No - INTEGUMENTARY Hx Dermatological Problems: No - MUSCULOSKELETAL/RHEUMATOLOGICAL Hx Falls: Yes (Syncopy episode once) - GASTROINTESTINAL Hx Gastritis: Yes - GENITOURINARY/GYNECOLOGICAL Hx Genitourinary Disorders: No Hx Prostate Problems: Yes (Urine retention) - PSYCHIATRIC Hx Substance Use: No - SURGICAL HISTORY Hx Surgeries: Yes Hx Cataract Extraction: Yes Hx Cardiac Catheterization: Yes Other/Comment: appendicitis?? - ANESTHESIA Hx Anesthesia: Yes Hx Anesthesia Reactions: No Hx Malignant Hyperthermia: No Meds Allergies/Adverse Reactions: Allergies Allergy/AdvReac Type Severity Reaction Status Date / Time No Known Allergies Allergy Verified 10/18/18 06:51 - Medications Medications: Current Medications Amiodarone HCl (Cordarone) 200 mg PO DAILY [facility] Amlodipine Besylate (Norvasc) 5 mg PO DAILY [facility] Aspirin (Ecotrin) 81 mg PO DAILY [facility] Atorvastatin Calcium (Lipitor) 40 mg PO HS [facility] Calcitriol (Rocaltrol) 0.5 mcg PO DAILY [facility] Cilostazol (Pletal) 100 mg PO BID [facility] Clopidogrel Bisulfate (Plavix) 75 mg PO DAILY [facility] Doxazosin Mesylate (Cardura) 8 mg PO HS [facility] Famotidine (Pepcid) 40 mg PO DAILY [facility] Heparin Sodium (Porcine) (Heparin) 5,000 units SC Q8 [facility]; Protocol Last Admin: 10/18/18 18:00 Dose: 5,000 units Sodium Chloride (Sodium Chloride 0.9%) 1,000 mls @ 100 mls/hr IV .Q10H MORE Last Admin: 10/18/18 18:00 Dose: 100 mls/hr Levothyroxine Sodium (Synthroid) 50 mcg PO DAILY@0630 [facility] Losartan Potassium (Cozaar) 100 mg PO DAILY [facility] Metoprolol Tartrate (Lopressor) 50 mg PO Q12 [facility] Ranolazine (Ranexa) 1,000 mg PO BID [facility] Results - Vital Signs Recent Vital Signs: Last Vital Signs Temp 97.9 F 10/18/18 17:00 Pulse 105 H 10/18/18 17:00 Resp 18 10/18/18 17:00 BP 105/72 10/18/18 17:00 Pulse Ox 96 10/18/18 17:00 - Labs Result Diagrams: 10/18/18 07:55 10/18/18 08:45 Labs: Laboratory Results - last 24 hr 10/18/18 10/18/18 10/18/18 06:47 07:47 07:55 WBC 11.1 H RBC 4.57 Hgb 14.4 Hct 43.6 MCV 95.3 H MCH 31.4 H MCHC 32.9 L RDW 13.4 Plt Count 251 MPV 9.7 Neut % (Auto) 67.8 Lymph % (Auto) 22.2 [place] % (Auto) 6.9 Eos % (Auto) 2.8 Baso % (Auto) 0.3 Neut # (Auto) 7.5 H Lymph # (Auto) 2.5 [place] # (Auto) 0.8 Eos # (Auto) 0.3 Baso # (Auto) 0.0 PT INR APTT pO2 15 L VBG pH 7.32 VBG pCO2 56 VBG HCO3 23.7 VBG Total CO2 30.6 H VBG O2 Sat (Calc) 23.5 L VBG Base Excess 1.4 VBG Potassium 3.9 Sodium 137.0 Chloride 100.0 Glucose 129 H Lactate 3.1 H FiO2 21.0 Potassium Carbon Dioxide Anion Gap BUN Creatinine Est GFR ( Amer) Est GFR (Non-Af Amer) POC Glucose (mg/dL) 129 H Random Glucose Calcium Troponin I NT-Pro-B Natriuret Pep Venous Blood Potassium 3.9 Blood Type Antibody Screen BBK History Checked 0210/18/18 10/18/18 07:55 08:45 08:45 WBC RBC Hgb Hct MCV MCH MCHC RDW Plt Count MPV Neut % (Auto) Lymph % (Auto) [place] % (Auto) Eos % (Auto) Baso % (Auto) Neut # (Auto) Lymph # (Auto) [place] # (Auto) Eos # (Auto) Baso # (Auto) PT 11.7 INR 1.0 APTT 28.1 pO2 VBG pH VBG pCO2 VBG HCO3 VBG Total CO2 VBG O2 Sat (Calc) VBG Base Excess VBG Potassium Sodium 139 Chloride 97 L Glucose Lactate FiO2 Potassium 4.9 Carbon Dioxide 23 Anion Gap 24 H BUN 55 H Creatinine 2.0 H Est GFR ( Amer) 39 Est GFR (Non-Af Amer) 33 POC Glucose (mg/dL) Random Glucose 123 H Calcium 9.8 Troponin I < 0.0120 NT-Pro-B Natriuret Pep 31.2 Venous Blood Potassium Blood Type Cancelled Antibody Screen Cancelled BBK History Checked Cancelled
--- NOTE | 2018-10-18 23:25 | CARD ---
APPROVED REPORT Date of service: 10/18/2018 EKG Measurement Heart [id number] <Conclusion> Normal sinus rhythm Right bundle branch block NDSTT abnormalities Prolonged QTc Abnormal ECG
[2018-10-19] MEDS: Sodium Chloride 0.9% 1,000 ML IV SCH ×2 (04:33→21:48)
[2018-10-19 06:06] LABS: BASO % 0.3 % (0.0-2.0); EOS # 0.2 K/uL (0.0-0.7); HEMOGLOBIN 13.2 g/dL (12.0-18.0); LYMPH # 1.5 K/uL (1.0-4.3); LYMPH % 19.3 % (20.0-40.0); MEAN CELL VOLUME 95.1 fl (80.0-94.0); MEAN CORPUSCULAR HEMOGLOBIN 32.2 pg (27.0-31.0); MEAN CORPUSCULAR HGB CONC 33.9 g/dL (33.0-37.0); MEAN PLATELET VOLUME 9.6 fl (7.2-11.7); MONO # 0.7 K/uL (0.0-0.8); MONO % 9.2 % (0.0-10.0); NEUT # 5.5 K/uL (1.8-7.0); NEUT % 69.2 % (50.0-75.0); RBC 4.09 Mil/uL (4.40-5.90); RED CELL DISTRIBUTION WIDTH 13.4 % (11.5-14.5)
[2018-10-19 06:21] LABS: ALB/GLOB RATIO 1.2 (1.0-2.1); ALBUMIN 3.9 g/dL (3.5-5.0); ALT/SGPT 26 U/L (21-72); AST/SGOT 20 U/L (17-59); BLOOD UREA NITROGEN 25 mg/dl (9-20); CALCIUM 8.9 mg/dL (8.4-10.2); GFR NON-AFRICAN AMERICAN 59
[2018-10-19] MEDS: Levothyroxine 50 MCG TAB PO SCH (06:36)
--- NOTE | 2018-10-19 07:33 | CON ---
DATE: 10/18/2018 RENAL CONSULTATION LOCATION: The patient is located in room 418, bed 2. REQUESTED BY: Norman Conte MD REASON FOR RENAL CONSULTATION: Acute renal failure. HISTORY OF PRESENT ILLNESS: Mr. Loo is a 77-year-old obese elderly male with past medical history significant for osteoarthritis, coronary artery disease, status post stent, diabetes, gastritis, hypertension, hyperlipidemia, hypothyroidism, mitral valve prolapse, TIA, was admitted to the ER after he had witnessed syncopal episode at the day of admission, and as per the patient, he got up in the morning and took his blood pressure medication and laxatives, and was told by his son that he fainted while in the bathroom. The patient states that he was lying on the floor when he woke up, and denies any head injury. The patient is unable to recall the syncopal episode. The patient also reports prior syncopal episode. He did no feel any dizzy, lightheadedness. Denies any chest pain, palpitation. Denies any headache. Denies shortness of breath. Denies any nausea, vomiting, or diarrhea. History of constipation. Now renal consult is requested for increased BUN and creatinine, for further evaluation. PAST MEDICAL HISTORY: Significant for hypertension, diabetes, hyperlipidemia, hypothyroidism, mitral valve prolapse, TIA, coronary artery disease, status post stent placement, and arthritis. PAST SURGICAL HISTORY: He denies. ALLERGIES: NO KNOW DRUG ALLERGIES. SOCIAL HISTORY: Denies any smoking, alcohol, or drugs. CURRENT MEDICATIONS: Include as follows: Cardura 8 mg p.o. at bedtime on hold; amiodarone 200 mg p.o. daily; Cozaar 100 mg p.o. daily; aspirin 81 mg daily; subcu heparin 5000 units every 8 hours, on hold; Lipitor 40 mg p.o. at bedtime; Lopressor 50 mg every 12 hours, on hold; amlodipine 5 mg p.o. daily, on hold; Pepcid 40 mg daily; Plavix 75 mg daily; Pletal 100 mg p.o. b.i.d.; Ranexa 1000 mg p.o. b.i.d.; Rocaltrol 0.5 mcg p.o. daily; IV fluids normal saline 100 mL per hour; and Synthroid 50 mcg p.o. daily. REVIEW OF SYSTEMS: Significant for syncopal episode. All other review of systems are reviewed and are negative. PHYSICAL EXAMINATION: VITAL SIGNS: His blood pressure this afternoon 86/68, pulse 111, respirations 16, temperature 98.2, and saturation 99%. Height 5 feet 4 inches, weight is 165 pounds. His repeat blood pressure this evening 126/75, pulse 101, respirations 17, temperature 98, saturation 98%. GENERAL: Mr. Loo is a 77-year-old elderly obese male, well built, well nourished, not in acute distress. HEENT: Pupils are normal and reactive to light and accommodation. Conjunctivae are pink. Sclerae are anicteric. Tongue is moist. Trachea is midline. LUNGS: Symmetric on both sides. Bilateral breath sounds present. Clear to auscultation. CARDIOVASCULAR SYSTEM: [place]bert at the fifth intercostal space, midclavicular line. S1 and S2 audible. No murmur or gallop. ABDOMEN: Normal in appearance, protuberant, soft, tympanitic. No guarding. No rigidity. No hepatosplenomegaly. CENTRAL NERVOUS SYSTEM: The patient is alert, awake, and oriented x3. Nonfocal neurological examination. Cranial nerves II through XII are grossly intact. Sensory and motor system is within normal limits. EXTREMITIES: No cyanosis, no clubbing, no edema. LABORATORY DATA: Include as follows: As of 10/18/2018, WBC 11.1, hemoglobin 14.4, hematocrit is 43.6, platelets 251. PT 11.7, PTT 28.1. Sodium 139, potassium 4.9, chloride 97, CO2 of 23, BUN 55, creatinine 2, glucose 123, calcium 9.8, and troponin 0.012, proBNP 31.2. Other laboratory data, urine osmolality 394, urine creatinine is 59.4, urine sodium is 50, urine potassium is 21.1. IMPRESSION: In summary, Mr. Loo is a 77-year-old elderly male with history of hypertension, diabetes, hyperlipidemia, hypothyroidism, arthritis, mitral valve prolapse, transient ischemic attack who was admitted with syncopal episode and increased blood urea nitrogen and creatinine and low blood pressure. 1. Hypotension. Antihypertensive medications are on hold and blood pressure is improving. 2. Dehydration. 3. Acute renal failure. Picture consistent with prerenal azotemia, most likely secondary to intravascular depletion. PLAN: Continue IV fluids. Normal saline at 100 mL per hour. Continue to monitor BMP. We will follow with you. Thank you for allowing me to participate in your patient's care. Check phosphorous and PTH intact level in a.m. Franchesca Correia MD
[2018-10-19] MEDS ORDERED: Patient's Own Med (Losartan/Hydrochlorothiazide [Hyzaar 100-12.5 Tablet] 1 TAB) PO SCH (09:00)
[2018-10-19] MEDS: Cilostazol 100 mg Tab UD PO SCH ×2 (09:40→17:42)
[2018-10-19] MEDS: Ranolazine 500 mg Extended Release Tablets PO SCH ×2 (09:41→17:42)
--- NOTE | 2018-10-19 10:57 | PN ---
DATE: 10/19/2018 SUBJECTIVE: The patient seen and examined. Interim events noted. The patient remains in progressive care unit, on telemetry monitoring. The patient is sleeping, arousable, feels okay. Denies any chest pain, shortness of breath, palpitation, dizziness, or loss of consciousness. PHYSICAL EXAMINATION: GENERAL: The patient is in no acute distress. VITAL SIGNS: Stable. HEART: S1 and S2, normal, regular. LUNGS: Good bilateral air exchange. ABDOMEN: Soft, nontender. EXTREMITIES: No edema. No calf swelling. No tenderness. No acute ischemia. CENTRAL NERVOUS SYSTEM: Essentially unchanged. DIAGNOSTIC DATA: Available diagnostic data reviewed. Telemetry monitoring does not show significant arrhythmias. ASSESSMENT: Overall, the patient's general medical condition is stable. PLAN: As ordered. Norman Conte MD
--- NOTE | 2018-10-19 12:09 | US ---
Date of service: 10/18/2018 PROCEDURE: Duplex ultrasound of the carotid and vertebral arteries. HISTORY: syncope, hx CAD COMPARISON: None available. TECHNIQUE: Grayscale and duplex Doppler evaluation of the cervical carotid and vertebral arteries were performed. The common carotid, carotid bifurcations and cervical ICA and proximal ECA were evaluated. The vertebral arteries were evaluated for gross patency and direction. FINDINGS: RIGHT CAROTID ARTERIES: Common Carotid Artery: Maximal flow velocity of 68.0 cm/s. Carotid Bifurcation: Normal. Internal Carotid Artery:Heterogeneous plaque formation. Maximal flow velocity of 65.1 cm/s. External Carotid Artery (proximal branches): Maximal flow velocity of 100.7 cm/s. ICA/CCA Ratio: 1.0 LEFT CAROTID ARTERIES: Common Carotid Artery: Maximal flow velocity of 72.1 cm/s. Carotid Bifurcation: Intimal thickening is present Internal Carotid Artery:Heterogeneous plaque formation. Maximal flow velocity of 66.0 cm/s. External Carotid Artery (proximal branches): Maximal flow velocity of 100.4 cm/s. ICA/CCA Ratio: 0.9 VERTEBRAL ARTERIES: Right Vertebral Artery: Patent. Antegrade flow. Left Vertebral Artery: Patent. Antegrade flow. OTHER FINDINGS: Atherosclerotic calcification present. IMPRESSION: Right ICA degree of stenosis: Less than 50% Left ICA degree of stenosis: Less than 50% Reference Internal Carotid Artery (ICA) Peak Systolic Velocity (PSV) for above: 1. Less than 50% stenosis less than 125 cm/s peak systolic velocity 2. 50-69% stenosis 125-230cm/s peak systolic velocity 3. Greater than 70% but less than near occlusion greater than 230 cm/s peak systolic velocity
--- NOTE | 2018-10-19 16:15 | CP.PCM.PN ---
Subjective - Date & Time of Evaluation Date of Evaluation: 10/19/18 Time of Evaluation: 16:15 - Subjective Subjective: pt is seen and examined, follow up consult is dictated #[id number] check bmp in am, renal function is improving Objective - Vital Signs/Intake and Output Vital Signs (last 24 hours): Temp Pulse Resp BP Pulse Ox 97.3 F L 85 20 132/82 93 L 10/19/18 13:11 10/19/18 13:11 10/19/18 13:11 10/19/18 13:11 10/19/18 13:11 - Medications Medications: Current Medications Acetaminophen (Tylenol 325mg Tab) 650 mg PO Q6 PRN PRN Reason: Pain, Mild (1-3) Last Admin: 10/19/18 06:36 Dose: 650 mg Amiodarone HCl (Cordarone) 200 mg PO DAILY [facility] Last Admin: 10/19/18 09:40 Dose: 200 mg Amlodipine Besylate (Norvasc) 5 mg PO DAILY [facility] Aspirin (Ecotrin) 81 mg PO DAILY [facility] Last Admin: 10/19/18 09:41 Dose: 81 mg Atorvastatin Calcium (Lipitor) 40 mg PO HS [facility] Last Admin: 10/18/18 22:32 Dose: 40 mg Calcitriol (Rocaltrol) 0.5 mcg PO DAILY [facility] Last Admin: 10/19/18 09:40 Dose: 0.5 mcg Cilostazol (Pletal) 100 mg PO BID [facility] Last Admin: 10/19/18 09:40 Dose: 100 mg Clopidogrel Bisulfate (Plavix) 75 mg PO DAILY [facility] Last Admin: 10/19/18 09:40 Dose: 75 mg Doxazosin Mesylate (Cardura) 8 mg PO HS [facility] Famotidine (Pepcid) 40 mg PO DAILY [facility] Last Admin: 10/19/18 09:40 Dose: 40 mg Heparin Sodium (Porcine) (Heparin) 5,000 units SC Q8 [facility]; Protocol Last Admin: 10/18/18 18:00 Dose: 5,000 units Sodium Chloride (Sodium Chloride 0.9%) 1,000 mls @ 100 mls/hr IV .Q10H [facility] Last Admin: 10/19/18 04:33 Dose: 100 mls/hr Levothyroxine Sodium (Synthroid) 50 mcg PO DAILY@0630 [facility] Last Admin: 10/19/18 06:36 Dose: 50 mcg Losartan Potassium (Cozaar) 100 mg PO DAILY [facility] Last Admin: 10/19/18 09:41 Dose: 100 mg Metoprolol Tartrate (Lopressor) 50 mg PO Q12 [facility] Ranolazine (Ranexa) 1,000 mg PO BID [facility] Last Admin: 10/19/18 09:41 Dose: 1,000 mg - Labs Labs: 10/19/18 04:30 10/19/18 04:30 PT 11.7 Seconds (9.8-13.1) 10/18/18 07:55 INR 1.0 10/18/18 07:55 APTT 28.1 Seconds (25.6-37.1) 10/18/18 07:55
--- NOTE | 2018-10-19 22:16 | CON ---
DATE: 10/19/2018 REFERRED BY: Norman Conte MD HISTORY OF PRESENT ILLNESS: This is a very pleasant 77-year-old gentleman, who was admitted after a syncopal episode, who was referred for GI evaluation with bright red blood per rectum. This morning, the patient was sitting up in the bed during my interview. He denies any nausea, vomiting, odynophagia, dysphagia. He has no abdominal pain or discomfort. He has had no loose stools. He does suffer from constipation. He states that he had taken a couple of laxatives and that led to his syncopal episode and also episodes of bright red blood per rectum over the last couple of days when he wipes. His hemoglobin has been stable and he has no associated symptoms. PAST MEDICAL HISTORY: Coronary disease, cardiac arrhythmia, hypertension. PAST SURGICAL HISTORY: Noncontributory. MEDICATIONS: He is on Cardura, amiodarone, losartan, an aspirin daily, he is on subcu heparin, he is on Lipitor, metoprolol, amlodipine, famotidine 40 mg daily, he is on Plavix 75 mg daily, Pletal 100 mg b.i.d., Ranexa 1000 mg p.o. b.i.d., Rocaltrol 0.5 mcg daily, Synthroid, p.r.n. Tylenol and he is getting some intravenous fluids. ALLERGIES: HE HAS NO KNOWN DRUG ALLERGIES. FAMILY HISTORY: Significant for grandson with colon cancer at age 25. SOCIAL HISTORY: Denies any alcohol, tobacco, or drug use. PHYSICAL EXAMINATION: GENERAL: He is a well-developed, well-nourished, male, awake, alert, and oriented x3. No acute distress. VITAL SIGNS: Stable. He is afebrile. ABDOMEN: Soft with good bowel sounds. Nontender, nondistended. No hepatosplenomegaly is appreciated. No palpable masses or lesions. LABORATORY DATA: Laboratories were reviewed and essentially unremarkable. CBC is normal. SMA-7 is remarkable today for potassium 3.3. BUN is little bit elevated at 25, it had been 55. LFTs were well within normal limits. IMPRESSION AND PLAN: A 77-year-old gentleman with bouts of blood per rectum, more likely hemorrhoidal in nature as it is only when he wipes, his hemoglobin has been stable. Certainly, this is not a source of his syncopal episode whatsoever, more likely related to his cardiac disease. Be that as it may, I have given my business card. He can follow up on this as an outpatient, at which time we can perform both upper and lower endoscopy to rule out any underlying pathology given his complaints of constipation and the fact that he has not had colonoscopy in many, many years. I discussed with him and his family at the bedside. He understood and agreed and I wait for him to follow up in the office. If there is any further gastrointestinal questions, please do not hesitate to call back. Irvin Sommers MD
--- NOTE | 2018-10-20 04:14 | PN ---
DATE: 10/19/2018 FOLLOWUP RENAL CONSULTATION LOCATION: The patient is located in room 418, bed 2. REQUESTED BY: Norman Conte MD REASON FOR FOLLOWUP: Acute renal failure, for further evaluation. SUBJECTIVE: Mr. Loo is a 77-year-old elderly male with a past medical history significant for arthritis, coronary artery disease, status post stent placement, diabetes, hypertension, hyperlipidemia, hypothyroidism, mitral valve prolapse, TIA, gastritis who was admitted with a syncopal episode and found to have hypotension and also increased BUN and creatinine. Started on IV fluids. The patient is feeling much better today. Denies any headache. Denies any dizziness. Denies any chest pain or palpitation. Denies any nausea, vomiting, or diarrhea. The patient is eager to go home. PHYSICAL EXAMINATION: VITAL SIGNS: This afternoon as follows: Blood pressure 132/82, pulse 85, respiration 20, temperature 97.3, saturation 93%. Height 5 feet 4 inches. Weight is 165 pounds. GENERAL: Mr. Loo is a 77-year-old elderly male, moderately built, moderately nourished, not in acute distress. HEENT: Pupils are normal and reactive to light and accommodation. Conjunctivae pink. Sclerae anicteric. Tongue is moist. Trachea is midline. LUNGS: Symmetric on both sides. Bilateral breath sounds present. Clear to auscultation. CARDIOVASCULAR SYSTEM: [place] at the fifth intercostal space, midclavicular line. S1 and S2 audible. No murmur or gallop. ABDOMEN: Normal in appearance, soft, tympanitic. No guarding, no rigidity. No hepatosplenomegaly. CENTRAL NERVOUS SYSTEM: The patient is alert, awake, oriented x3. Nonfocal neuro examination. Cranial nerves II through XII grossly intact. Sensory and motor system is within normal limits. EXTREMITIES: No cyanosis, no clubbing, no edema. CURRENT MEDICATIONS: Include as follows: Cardura 8 mg p.o. at bedtime, amiodarone 200 mg p.o. daily, Cozaar 100 mg p.o. daily, aspirin 81 mg daily, heparin on hold, Lipitor 40 mg p.o. at bedtime, metoprolol on hold, amlodipine on hold, Pepcid 40 mg p.o. daily, Plavix 75 mg p.o. daily, Pletal 100 mg p.o. b.i.d., Ranexa 1000 mg p.o. b.i.d., IV fluids normal saline at 100 mL per hour, Synthroid 50 mcg p.o. daily, and Tylenol. LABORATORY DATA: Include as follows: As of 10/19/2018, WBC 8, hemoglobin 13.2, hematocrit is 38.9, platelets 228. Sodium 140, potassium 3.3, chloride 101, CO2 of 27, BUN 25, creatinine 1.2, glucose is 133, calcium 8.9, phosphorus 2.7, magnesium 1.7. Total bili , AST 20, ALT 26, alkaline phosphatase 50. Troponin level 0.012. Calcium is 8.9, total protein 7.1, albumin 3.9. TSH is 3.65. ASSESSMENT AND PLAN: In summary, Mr. Loo is a 77-year-old elderly male with a history of hypertension, diabetes, hyperlipidemia, hypothyroidism, coronary artery disease, arthritis who was admitted with a syncopal episode and hypotension. Started on intravenous fluids. The patient is feeling much better. Blood pressure is under control. Considered to resume his antihypertensive medication one by one tomorrow. Renal function improved almost back to his baseline now, picture consistent prerenal. Repeat basic metabolic panel in the morning. We will follow with you. Thank you for allowing me to participate in your patient's care. Franchesca Correia MD
[2018-10-20] MEDS: Levothyroxine 50 MCG TAB PO SCH (05:42)
[2018-10-20] MEDS: Sodium Chloride 0.9% 1,000 ML IV SCH ×2 (05:43→17:07)
[2018-10-20] MEDS: Cilostazol 100 mg Tab UD PO SCH ×2 (09:07→16:45)
[2018-10-20] MEDS: Ranolazine 500 mg Extended Release Tablets PO SCH ×2 (09:08→16:46)
--- NOTE | 2018-10-20 12:06 | PN ---
DATE: 10/20/2018 SUBJECTIVE: The patient seen and examined. Interim events noted. Consults noted and appreciated. Gastroenterology followup and intervention noted and appreciated. Case was discussed with wildlife control operator yesterday. The patient feels okay. Denies any chest pain, shortness of breath, dizziness, loss of consciousness or any bleeding per rectum. PHYSICAL EXAMINATION: GENERAL: The patient is in no acute distress. VITAL SIGNS: Stable. No orthostatic changes. HEART: S1 and S2, normal and regular. LUNGS: Good bilateral air exchange. ABDOMEN: Soft, nontender. EXTREMITIES: No edema, calf swelling. No tenderness. No acute ischemia. CENTRAL NERVOUS SYSTEM: Essentially unchanged. DIAGNOSTIC DATA: Available diagnostic data reviewed. Telemetry monitoring does not show significant arrhythmias. ASSESSMENT AND PLAN: Overall, the patient is medically stable and improving. Plan as ordered. Norman Conte MD
[2018-10-20 14:12] LABS: HEMOGLOBIN 13.9 g/dL (12.0-18.0); MEAN CELL VOLUME 95.8 fl (80.0-94.0); MEAN CORPUSCULAR HEMOGLOBIN 31.7 pg (27.0-31.0); MEAN CORPUSCULAR HGB CONC 33.1 g/dL (33.0-37.0); RBC 4.37 Mil/uL (4.40-5.90); RED CELL DISTRIBUTION WIDTH 13.3 % (11.5-14.5); WHITE BLOOD COUNT 7.3 K/uL (4.8-10.8)
[2018-10-20 14:32] LABS: ALB/GLOB RATIO 1.2 (1.0-2.1); ALBUMIN 4.5 g/dL (3.5-5.0); ALT/SGPT 19 U/L (21-72); AST/SGOT 24 U/L (17-59); BLOOD UREA NITROGEN 14 mg/dl (9-20); CALCIUM 9.3 mg/dL (8.4-10.2); GFR NON-AFRICAN AMERICAN > 60
--- NOTE | 2018-10-20 15:26 | CP.PCM.PN ---
Subjective - Date & Time of Evaluation Date of Evaluation: 10/20/18 Time of Evaluation: 15:26 - Subjective Subjective: pt is seen and examined, follow up consult is dictated #[id number] lauren al function is stable, resume his bp meds from tomorrow Objective - Vital Signs/Intake and Output Vital Signs (last 24 hours): Temp Pulse Resp BP Pulse Ox 97.6 F 84 20 153/85 H 98 10/20/18 12:51 10/20/18 12:51 10/20/18 12:51 10/20/18 12:51 10/20/18 12:51 - Medications Medications: Current Medications Acetaminophen (Tylenol 325mg Tab) 650 mg PO Q6 PRN PRN Reason: Pain, Mild (1-3) Last Admin: 10/19/18 06:36 Dose: 650 mg Amiodarone HCl (Cordarone) 200 mg PO DAILY [facility] Last Admin: 10/20/18 09:06 Dose: 200 mg Amlodipine Besylate (Norvasc) 5 mg PO DAILY [facility] Aspirin (Ecotrin) 81 mg PO DAILY [facility] Last Admin: 10/20/18 09:06 Dose: 81 mg Atorvastatin Calcium (Lipitor) 40 mg PO HS [facility] Last Admin: 10/19/18 21:42 Dose: 40 mg Calcitriol (Rocaltrol) 0.5 mcg PO DAILY [facility] Last Admin: 10/20/18 09:07 Dose: 0.5 mcg Cilostazol (Pletal) 100 mg PO BID [facility] Last Admin: 10/20/18 09:07 Dose: 100 mg Clopidogrel Bisulfate (Plavix) 75 mg PO DAILY [facility] Last Admin: 10/20/18 09:06 Dose: 75 mg Doxazosin Mesylate (Cardura) 8 mg PO HS [facility] Famotidine (Pepcid) 40 mg PO DAILY [facility] Last Admin: 10/20/18 09:08 Dose: 40 mg Heparin Sodium (Porcine) (Heparin) 5,000 units SC Q8 [facility]; Protocol Last Admin: 10/18/18 18:00 Dose: 5,000 units Sodium Chloride (Sodium Chloride 0.9%) 1,000 mls @ 100 mls/hr IV .Q10H [facility] Last Admin: 10/20/18 05:43 Dose: 100 mls/hr Levothyroxine Sodium (Synthroid) 50 mcg PO DAILY@0630 [facility] Last Admin: 10/20/18 05:42 Dose: 50 mcg Losartan Potassium (Cozaar) 100 mg PO DAILY [facility] Last Admin: 10/20/18 09:07 Dose: 100 mg Metoprolol Tartrate (Lopressor) 50 mg PO Q12 [facility] Ranolazine (Ranexa) 1,000 mg PO BID [facility] Last Admin: 10/20/18 09:08 Dose: 1,000 mg - Labs Labs: 10/20/18 13:28 10/20/18 13:28 PT 11.7 Seconds (9.8-13.1) 10/18/18 07:55 INR 1.0 10/18/18 07:55 APTT 28.1 Seconds (25.6-37.1) 10/18/18 07:55
[2018-10-21] MEDS: Sodium Chloride 0.9% 1,000 ML IV SCH ×2 (01:58→20:15)
--- NOTE | 2018-10-21 04:09 | PN ---
DATE: 10/20/2018 FOLLOWUP RENAL CONSULTATION LOCATION: The patient is located in room 418, bed 2. REQUESTED BY: Norman Conte MD REASON FOR FOLLOWUP: Acute renal failure. SUBJECTIVE: Mr. Loo is about 77-year-old elderly obese male with past medical history significant for osteoarthritis, coronary artery disease with stent placement, diabetes, hypertension, hyperlipidemia, hypothyroidism, mitral valve prolapse, TIA, was admitted with syncopal episode, dizziness, hypertension, acute renal failure. The patient was started on IV fluids and the patient is now feeling better and no dizziness. No chest pain. No palpitations. Ambulating. PHYSICAL EXAMINATION: VITAL SIGNS: Blood pressure this afternoon 153/85, pulse 84, respirations 20, temperature 97.6, saturation 98%, height 5 feet 4 inches, weight is 165 pounds. GENERAL: Mr. Loo is a 77-year-old elderly male, moderately built, moderately nourished, not in acute distress. HEENT: Pupils are normal and reactive to light and accommodation. Conjunctivae pink. Sclerae anicteric. Tongue is moist. Trachea is midline. LUNGS: Symmetric on both sides. Bilateral breath sounds present. Clear to auscultation. CARDIOVASCULAR SYSTEM: [place] at the fifth intercostal space, midclavicular line. S1 and S2 audible. No murmur or gallop. ABDOMEN: Normal in appearance, soft, tympanitic. No guarding, no rigidity. No hepatosplenomegaly. CENTRAL NERVOUS SYSTEM: The patient is alert, awake, oriented x3. Nonfocal neuro examination. Cranial nerves II through XII grossly intact. Sensory and motor system is within normal limits. EXTREMITIES: No cyanosis, no clubbing, no edema. CURRENT MEDICATIONS: Include as follows: Cardura 8 mg p.o. at bedtime on hold, amiodarone 200 mg p.o. daily, losartan 100 mg p.o. daily, aspirin 81 mg daily, subcu heparin 5000 units every 8 hours on hold, atorvastatin 40 mg p.o. at bedtime, metoprolol 50 mg p.o. every 12 hours, amlodipine 5 mg by mouth daily, Pepcid 40 mg by mouth daily, Plavix 75 mg daily, Pletal 100 mg p.o. b.i.d., Ranexa 1000 mg p.o. b.i.d., Rocaltrol 0.5 mcg p.o. daily, IV fluids normal saline 100 mL/hour, levothyroxine 50 mcg daily, and Tylenol. LABORATORY DATA: Include as follows: As of 10/20/2018, WBC 7.3, hemoglobin 13.9, hematocrit 41.9, platelets 227. Sodium 142, potassium 4, chloride 98, CO2 28, BUN 40, creatinine 1, glucose 142, calcium 9.3, and magnesium 1.8. Total bili 0.6, AST 24, ALT 19, alkaline phosphatase 56, total protein 8.1, albumin 4.5. TSH is 3.65 as of 10/19/2018. ASSESSMENT AND PLAN: In summary, Mr. Loo is a 77-year-old elderly male with a history of longstanding hypertension, diabetes, hyperlipidemia, hypothyroidism, osteoarthritis, status post coronary stent placement, was admitted with syncopal episode, dizziness, and acute renal failure, started on intravenous fluids and holding all the blood pressure medicines. Now, serum creatinine is 1. 1. Syncopal episode, most likely secondary to hypertension. 2. Dehydration. 3. Acute renal failure secondary to intravascular depletion and hypertension. Continue intravenous fluids. We will start antihypertensive medications from tomorrow, started Losartan today. Renal function is back to its baseline, stable from the renal standpoint for a possible discharge. Thank you for allowing me to participate in your patient's care. Franchesca Correia MD
[2018-10-21 06:11] LABS: HEMOGLOBIN 13.8 g/dL (12.0-18.0); MEAN CELL VOLUME 94.2 fl (80.0-94.0); MEAN CORPUSCULAR HEMOGLOBIN 32.5 pg (27.0-31.0); MEAN CORPUSCULAR HGB CONC 34.5 g/dL (33.0-37.0); RBC 4.26 Mil/uL (4.40-5.90); RED CELL DISTRIBUTION WIDTH 13.1 % (11.5-14.5); WHITE BLOOD COUNT 8.6 K/uL (4.8-10.8)
[2018-10-21 06:35] LABS: ALB/GLOB RATIO 1.1 (1.0-2.1); ALBUMIN 4.4 g/dL (3.5-5.0); ALT/SGPT 23 U/L (21-72); AST/SGOT 27 U/L (17-59); BLOOD UREA NITROGEN 18 mg/dl (9-20); CALCIUM 9.5 mg/dL (8.4-10.2); GFR NON-AFRICAN AMERICAN > 60
[2018-10-21] MEDS: Levothyroxine 50 MCG TAB PO SCH (06:39)
--- NOTE | 2018-10-21 07:46 | CP.PCM.CON ---
History of Present Illness - History of Present Illness History of Present Illness: Fernandez Hayes PGY1, cardio consult note for Dr Baer Pt is a 77 yo non smoker male with a PMH of DM, CAD RCA stent in 2017, HTN, HLD, Hypothyroidism, Mitral valve replacement, SVT, and TIA who presented to the em ergency department after a witnessed syncopal episode prior to arrival. Pt fainted while he was in the bathroom and was found by his son. Pt does not recall the episode and only remembers waking up on the floor. Pt denies any headache, blurry vision, chest pain or palpitations during this episode. A 12 point ROS was obtained and added to the HPI where appropriate. Past Patient History - Past Medical History & Family History Past Medical History?: Yes - Past Social History Smoking Status: Former Smoker - CARDIAC Hx Hypercholesterolemia: Yes Hx Hypertension: Yes Hx Mitral Valve Prolapse: Yes Hx Pacemaker: No Other/Comment: Has a monitor in his heart, unable to remember what it is called - PULMONARY Hx Respiratory Disorders: No - NEUROLOGICAL Hx Transient Ischemic Attacks (TIA): Yes - HEENT Hx HEENT Problems: No - RENAL Hx Chronic Kidney Disease: No - ENDOCRINE/METABOLIC Hx Hypothyroidism: Yes - HEMATOLOGICAL/ONCOLOGICAL Hx Human Immunodeficiency Virus (HIV): No - INTEGUMENTARY Hx Dermatological Problems: No - MUSCULOSKELETAL/RHEUMATOLOGICAL Hx Falls: Yes (Syncopy episode once) - GASTROINTESTINAL Hx Gastritis: Yes - GENITOURINARY/GYNECOLOGICAL Hx Genitourinary Disorders: No Hx Prostate Problems: Yes (Urine retention) - PSYCHIATRIC Hx Substance Use: No - SURGICAL HISTORY Hx Surgeries: Yes Hx Cataract Extraction: Yes Hx Cardiac Catheterization: Yes Other/Comment: appendicitis?? - ANESTHESIA Hx Anesthesia: Yes Hx Anesthesia Reactions: No Hx Malignant Hyperthermia: No Meds Allergies/Adverse Reactions: Allergies Allergy/AdvReac Type Severity Reaction Status Date / Time No Known Allergies Allergy Verified 10/18/18 06:51 - Medications Medications: Current Medications Acetaminophen (Tylenol 325mg Tab) 650 mg PO Q6 PRN PRN Reason: Pain, Mild (1-3) Last Admin: 10/19/18 06:36 Dose: 650 mg Amiodarone HCl (Cordarone) 200 mg PO DAILY [facility] Last Admin: 10/20/18 09:06 Dose: 200 mg Amlodipine Besylate (Norvasc) 5 mg PO DAILY [facility] Aspirin (Ecotrin) 81 mg PO DAILY [facility] Last Admin: 10/20/18 09:06 Dose: 81 mg Atorvastatin Calcium (Lipitor) 40 mg PO HS [facility] Last Admin: 10/20/18 21:36 Dose: 40 mg Calcitriol (Rocaltrol) 0.5 mcg PO DAILY [facility] Last Admin: 10/20/18 09:07 Dose: 0.5 mcg Cilostazol (Pletal) 100 mg PO BID [facility] Last Admin: 10/20/18 16:45 Dose: 100 mg Clopidogrel Bisulfate (Plavix) 75 mg PO DAILY [facility] Last Admin: 10/20/18 09:06 Dose: 75 mg Doxazosin Mesylate (Cardura) 8 mg PO HS [facility] Famotidine (Pepcid) 40 mg PO DAILY [facility] Last Admin: 10/20/18 09:08 Dose: 40 mg Heparin Sodium (Porcine) (Heparin) 5,000 units SC Q8 [facility]; Protocol Last Admin: 10/18/18 18:00 Dose: 5,000 units Sodium Chloride (Sodium Chloride 0.9%) 1,000 mls @ 100 mls/hr IV .Q10H [facility] Last Admin: 10/21/18 01:58 Dose: 100 mls/hr Levothyroxine Sodium (Synthroid) 50 mcg PO DAILY@0630 [facility] Last Admin: 10/21/18 06:39 Dose: 50 mcg Losartan Potassium (Cozaar) 100 mg PO DAILY [facility] Last Admin: 10/20/18 09:07 Dose: 100 mg Metoprolol Tartrate (Lopressor) 50 mg PO Q12 [facility] Ranolazine (Ranexa) 1,000 mg PO BID [facility] Last Admin: 10/20/18 16:46 Dose: 1,000 mg Physical Exam - Head Exam Head Exam: ATRAUMATIC, NORMOCEPHALIC - Eye Exam Eye Exam: EOMI - ENT Exam ENT Exam: Mucous Membranes Moist - Neck Exam Neck exam: Positive for: Full Rom - Respiratory Exam Respiratory Exam: Clear to Auscultation Bilateral, NORMAL BREATHING PATTERN. absent: Accessory Muscle Use, Respiratory Distress - Cardiovascular Exam Cardiovascular Exam: RRR, +S1, +S2. absent: Diastolic murmur, Systolic Murmur - GI/Abdominal Exam GI & Abdominal Exam: Normal Bowel Sounds, Soft - Extremities Exam Extremities exam: Positive for: full ROM, pedal pulses present. Negative for: calf tenderness, pedal edema - Neurological Exam Neurological exam: Alert, Oriented x3 - Psychiatric Exam Psychiatric exam: Normal Affect, Normal Mood - Skin Skin Exam: Dry, Normal Color, Warm Results - Vital Signs Recent Vital Signs: Last Vital Signs Temp 98.5 F 10/21/18 05:00 Pulse 92 H 10/21/18 05:00 Resp 18 10/21/18 05:00 BP 154/85 H 10/21/18 05:00 Pulse Ox 98 10/21/18 05:00 - Labs Result Diagrams: 10/21/18 05:50 10/21/18 05:50 Labs: Laboratory Results - last 24 hr 10/20/18 10/20/18 10/21/18 13:28 13:28 05:50 WBC 7.3 8.6 RBC 4.37 L 4.26 L Hgb 13.9 13.8 Hct 41.9 40.1 MCV 95.8 H 94.2 H MCH 31.7 H 32.5 H MCHC 33.1 34.5 RDW 13.3 13.1 Plt Count 227 254 Sodium 142 Potassium 4.0 Chloride 98 Carbon Dioxide 28 Anion Gap 20 BUN 14 Creatinine 1.0 Est GFR ( Amer) > 60 Est GFR (Non-Af Amer) > 60 Random Glucose 142 H Calcium 9.3 Phosphorus 2.8 Magnesium 1.8 Total Bilirubin 0.6 AST 24 ALT 19 L D Alkaline Phosphatase 56 Total Protein 8.1 Albumin 4.5 Globulin 3.6 Albumin/Globulin Ratio 1.2 10/21/18 05:50 WBC RBC Hgb Hct MCV MCH MCHC RDW Plt Count Sodium 139 Potassium 4.2 Chloride 97 L Carbon Dioxide 29 Anion Gap 17 BUN 18 Creatinine 1.1 Est GFR ( Amer) > 60 Est GFR (Non-Af Amer) > 60 Random Glucose 101 Calcium 9.5 Phosphorus Magnesium Total Bilirubin 0.6 AST 27 ALT 23 Alkaline Phosphatase 54 Total Protein 8.3 H Albumin 4.4 Globulin 3.9 Albumin/Globulin Ratio 1.1 Assessment & Plan - Assessment and Plan (Free Text) Assessment: Witnessed Syncopal Episode DM CAD RCA stent in 2016 HTN HLD Hypothyroidism Mitral valve replacement SVT TIA Plan: Witnessed Syncopal Episode DM CAD RCA stent in 2016 HTN HLD Hypothyroidism Mitral valve replacement SVT TIA Trop 10/19 negative x2 EKG 10/18 NSR, QTc 557 ECHO 10/10/18 LVH, EF 70% Cath 10/02/18 angiographic findings: non obstructive CAD,m severe endothelial dysfunction with vasospastic disease, ectatic CAD. Left circ 65% stenosis, PDA mid prox 65% stenosis, LAD 65% stenosis. Medications amio 200mg ASA lipitor cilostazole plavix cozaar ranexa Pt seen, examined, assessment and plan discussed with Dr Keyur Hayes PGY1, Internal Medicine Resident - Date & Time Date: 10/21/18 Time: 08:00
--- NOTE | 2018-10-21 08:58 | CON ---
DATE: 10/18/2018 NEUROLOGY CONSULTATION This neurology consult was called by Dr. Norman Conte for Mr. Long Loo. HISTORY OF PRESENT ILLNESS: This is a 77-year-old male with past medical history of diabetes, possible coronary artery disease who this morning had a syncopal episode. The patient got up this morning, took his blood pressure medications and laxatives, and while he was in the bathroom relieving himself, he thinks that there was no urinary incontinence. There was no focal shaking. He was amnestic with the event. Prior to the event, he denies having pain, aphasia, dysarthria, or weakness. In the emergency room, he had no further episodes. REVIEW OF SYSTEMS: No headaches, no nausea, no vomiting, no weakness. PAST MEDICAL HISTORY: Arthritis, CAD with stent, diabetes, gastritis, hypertension, hypercholesterolemia, hypothyroidism, mitral valve prolapse, TIA. The patient does have a pacemaker in place. FAMILY HISTORY: The patient has a son. SOCIAL HISTORY: There is no tobacco or alcohol use. MEDICATIONS: At home, the patient is on aspirin, Plavix, calcitriol, Pletal, famotidine, Synthroid, losartan, amiodarone, Ranexa, Lasix, Lopressor,Crestor, and Norvasc. ALLERGIES: THERE ARE NO KNOWN DRUG ALLERGIES. PHYSICAL EXAMINATION: NEUROLOGIC: The patient is alert, awake, and oriented x3. Cranial nerves II through XII are normal. Pupils equal, round, and reactive to light. Mini-mental status 30/30. Motor tone are normal. Strength is normal, 5/5. Sensory was intact to fine touch, pin, and position sense. Gait is normal. There is no ataxia. There is no dysmetria. CAT scan of the head was done and shows a normal CAT scan of the head with bifrontal atrophy, appropriate for age. The patient was admitted to telemetry for a full workup. IMPRESSION: This is a 77-year-old male with a normal neurological exam who currently is not a tPA candidate. Did not come in as a code stroke. I do not feel that this event is neurological in nature. I do believe that he may have had a vasovagal event. PLAN: 1. Carotid Dopplers. 2. Please reconsult p.r.n. Thank you for this interesting consult. Joseph Grossman MD [facility] # [id number] CORY
[2018-10-21] MEDS: Ranolazine 500 mg Extended Release Tablets PO SCH ×2 (09:56→16:42)
[2018-10-21] MEDS: Cilostazol 100 mg Tab UD PO SCH ×2 (09:57→16:42)
--- NOTE | 2018-10-21 11:25 | PN ---
DATE: 10/21/2018 SUBJECTIVE: The patient seen and examined. Interim events noted. The patient remains in regular medical floor with telemetry monitoring. The patient feels okay. Denies any chest pain, shortness of breath, palpitation, or dizziness. PHYSICAL EXAMINATION: GENERAL: The patient is in no acute distress. VITAL SIGNS: Stable. HEART: S1 and S2, normal and regular. LUNGS: Good bilateral air exchange. ABDOMEN: Soft and nontender. EXTREMITIES: No edema, no calf swelling. No tenderness, no acute ischemia. CENTRAL NERVOUS SYSTEM: Exam is essentially unchanged. DIAGNOSTIC DATA: Available diagnostic data reviewed. Telemetry monitoring does not reveal significant arrhythmias. ASSESSMENT AND PLAN: Overall, the patient's general medical condition is stable. Plan as ordered. Norman Conte MD
--- NOTE | 2018-10-21 13:21 | CP.PCM.PN ---
Subjective - Date & Time of Evaluation Date of Evaluation: 10/21/18 Time of Evaluation: 13:21 - Subjective Subjective: pt is seen and examined, follow up consult is dictated #[id number] Objective - Vital Signs/Intake and Output Vital Signs (last 24 hours): Temp Pulse Resp BP Pulse Ox 98.3 F 89 20 147/88 95 10/21/18 08:00 10/21/18 08:00 10/21/18 08:00 10/21/18 08:00 10/21/18 08:00 - Medications Medications: Current Medications Acetaminophen (Tylenol 325mg Tab) 650 mg PO Q6 PRN PRN Reason: Pain, Mild (1-3) Last Admin: 10/19/18 06:36 Dose: 650 mg Amiodarone HCl (Cordarone) 200 mg PO DAILY [facility] Last Admin: 10/21/18 09:57 Dose: 200 mg Amlodipine Besylate (Norvasc) 5 mg PO DAILY [facility] Last Admin: 10/21/18 09:57 Dose: 5 mg Aspirin (Ecotrin) 81 mg PO DAILY [facility] Last Admin: 10/21/18 09:56 Dose: 81 mg Atorvastatin Calcium (Lipitor) 40 mg PO HS [facility] Last Admin: 10/20/18 21:36 Dose: 40 mg Calcitriol (Rocaltrol) 0.5 mcg PO DAILY [facility] Last Admin: 10/21/18 09:56 Dose: 0.5 mcg Cilostazol (Pletal) 100 mg PO BID [facility] Last Admin: 10/21/18 09:57 Dose: 100 mg Clopidogrel Bisulfate (Plavix) 75 mg PO DAILY [facility] Last Admin: 10/21/18 09:56 Dose: 75 mg Doxazosin Mesylate (Cardura) 8 mg PO HS [facility] Famotidine (Pepcid) 40 mg PO DAILY [facility] Last Admin: 10/21/18 09:57 Dose: 40 mg Heparin Sodium (Porcine) (Heparin) 5,000 units SC Q8 [facility]; Protocol Last Admin: 10/18/18 18:00 Dose: 5,000 units Sodium Chloride (Sodium Chloride 0.9%) 1,000 mls @ 100 mls/hr IV .Q10H [facility] Last Admin: 10/21/18 01:58 Dose: 100 mls/hr Levothyroxine Sodium (Synthroid) 50 mcg PO DAILY@0630 [facility] Last Admin: 10/21/18 06:39 Dose: 50 mcg Losartan Potassium (Cozaar) 100 mg PO DAILY [facility] Last Admin: 10/21/18 09:57 Dose: 100 mg Metoprolol Tartrate (Lopressor) 50 mg PO Q12 [facility] Last Admin: 10/21/18 09:59 Dose: 50 mg Ranolazine (Ranexa) 1,000 mg PO BID [facility] Last Admin: 10/21/18 09:56 Dose: 1,000 mg - Labs Labs: 10/21/18 05:50 10/21/18 05:50 PT 11.7 Seconds (9.8-13.1) 10/18/18 07:55 INR 1.0 10/18/18 07:55 APTT 28.1 Seconds (25.6-37.1) 10/18/18 07:55
[2018-10-22] MEDS: Levothyroxine 50 MCG TAB PO SCH (05:52)
--- NOTE | 2018-10-22 06:51 | CON ---
DATE: 10/21/2018 LOCATION: The patient is located in room 418, bed 2. REQUESTED BY: Norman Conte MD REASON FOR FOLLOWUP: Acute renal failure and syncopal episode. HISTORY OF PRESENT ILLNESS: Mr. Loo is a 77-year-old elderly male with history of active arthritis, coronary artery disease, status post stent placement, diabetes, hypertension, gastritis, hyperlipidemia, hypothyroidism, mitral valve prolapse, TIA who was admitted with syncopal episode and hypotension and acute renal failure. Started on IV gentle hydration and his symptoms improved after 24 to 48 hours. Denies any headache, dizziness. Denies any chest pain. Denies any palpitation. Denies any nausea, vomiting, diarrhea. The patient is ambulating and out of bed to chair. PHYSICAL EXAMINATION: VITAL SIGNS: As follows: Blood pressure this afternoon 121/75, pulse 68, respirations 16, temperature 97.6, saturation 93% to 94%. Height is 5 feet 4 inches. Weight is 165 pounds. GENERAL: Mr. Loo is a 77-year-old elderly male, moderately built, moderately nourished, not in acute distress. HEENT: Pupils normal and reactive to light and accommodation. Conjunctivae pink. Sclerae anicteric. Tongue is moist. Trachea is midline. LUNGS: Symmetric on both sides. Bilateral breath sounds present. Clear to auscultation. CARDIOVASCULAR: [place] at the fifth intercostal space, midclavicular line. S1 and S2 audible. No murmur or gallop. ABDOMEN: Normal in appearance, soft, tympanitic. No guarding. No rigidity. No hepatosplenomegaly. CENTRAL NERVOUS SYSTEM: The patient is alert, awake, oriented x3. Nonfocal neuro examination. Cranial nerves II through XII grossly intact. Sensory and motor system is within normal limits. EXTREMITIES: No cyanosis, no clubbing, no edema. CURRENT MEDICATIONS: Include as follows: Cardura 8 mg at bedtime on hold, amiodarone 200 mg p.o. daily, losartan 100 mg p.o. daily, aspirin 81 mg daily, subcu heparin 5000 units every 8 hours, Lipitor 40 mg p.o. at bedtime, metoprolol 50 mg p.o. every 12 hours, amlodipine 5 mg p.o. daily, Pepcid 40 mg p.o. daily, Plavix 75 mg daily, Pletal 100 mg p.o. b.i.d., Ranexa 1000 mg p.o. b.i.d., calcitriol 0.5 mcg p.o. daily, IV fluids normal saline at 100 mL/hour, levothyroxine 50 mcg p.o. daily, and Tylenol. LABORATORY DATA: As of 10/21/2018: WBC 8.6, hemoglobin 13.8, hematocrit is 40.1, platelets 254. Sodium 139, potassium 4.2, chloride 97, CO2 of 29, BUN 18, creatinine 1.1, glucose 101, calcium 9.5. Total bili 0.6, AST 27, ALT 23, alkaline phosphatase 54, total protein 8.3, albumin is 4.4. Vitamin B12 level is 733. TSH is 3.65 and PTH is 33. ASSESSMENT AND PLAN: In summary, Mr. Loo is a 77-year-old elderly obese male with history of hypertension, diabetes, coronary artery disease, hyperlipidemia, arthritis, TIA, mitral valve prolapse who was admitted with syncopal episode and acute renal failure. 1. Status post acute renal failure, most likely secondary to intravascular depletion and dehydration and hypotension. 2. Nonoliguric acute renal failure, most likely secondary to intravascular volume depletion and secondary to dehydration. 3. Status post hypotension. The patient is off all the blood pressure medicine now. Blood pressure is one by one yesterday and today. The patient is not in acute distress. Continue his current medications. Continue to hold Cardura at bedtime. 4. Diabetes. 5. Coronary artery disease. Continue his current medications. The patient is stable from the renal standpoint. Consider to discontinue calcitriol as PTH is 33 at this time. Thank you for allowing me to participate in your patient's care. Franchesca Correia MD
[2018-10-22 08:05] VITALS: BP 142/87; PULSE 73; RESP 18; TEMP 98.6; O2SAT 97
[2018-10-22] MEDS: Cilostazol 100 mg Tab UD PO SCH (09:31)
[2018-10-22] MEDS: Ranolazine 500 mg Extended Release Tablets PO SCH (09:32)
--- NOTE | 2018-10-22 10:42 | CP.PCM.DIS ---
Provider - Provider Date of Admission: 10/18/18 11:04 Attending physician: Norman Conte MD Consults: 10/18/18 12:16 Cardiology Consult Routine Comment: Consulting Provider: Aaron Baer Consulting Physician: Aaron Baer Reason for Consult: syncope, hx CAD 10/18/18 12:19 Neurology Consult Routine Comment: Consulting Provider: Joseph Gorssman Consulting Physician: Joseph Grossman Reason for Consult: witnessed syncope, hx CAD 10/18/18 14:14 Nephrology Consult Routine Comment: Consulting Provider: Franchesca Correia Consulting Physician: Franchesca Correia Reason for Consult: MARY JANE, hx CAD 10/18/18 20:02 Gastroenterology Consult Routine Comment: Consulting Provider: Tha Tovar Consulting Physician: Tha Tovar Reason for Consult: bright red blood in stool as per patient Time Spent in preparation of Discharge (in minutes): 40 Diagnosis - Discharge Diagnosis (1) Vasovagal syncope Status: Resolved (2) CAD (coronary artery disease) Status: Chronic (3) HTN (hypertension) Status: Chronic (4) BPH (benign prostatic hyperplasia) Status: Chronic (5) Hypothyroidism Status: Chronic Hospital Course - Lab Results Lab Results: Most Recent Lab Values WBC 8.6 K/uL (4.8-10.8) 10/21/18 05:50 RBC 4.26 Mil/uL (4.40-5.90) L 10/21/18 05:50 Hgb 13.8 g/dL (12.0-18.0) 10/21/18 05:50 Hct 40.1 % (35.0-51.0) 10/21/18 05:50 MCV 94.2 fl (80.0-94.0) H 10/21/18 05:50 MCH 32.5 pg (27.0-31.0) H 10/21/18 05:50 MCHC 34.5 g/dL (33.0-37.0) 10/21/18 05:50 RDW 13.1 % (11.5-14.5) 10/21/18 05:50 Plt Count 254 K/uL (130-400) 10/21/18 05:50 MPV 9.6 fl (7.2-11.7) 10/19/18 04:30 Neut % (Auto) 69.2 % (50.0-75.0) 10/19/18 04:30 Lymph % (Auto) 19.3 % (20.0-40.0) L 10/19/18 04:30 [place] % (Auto) 9.2 % (0.0-10.0) 10/19/18 04:30 Eos % (Auto) 2.0 % (0.0-4.0) 10/19/18 04:30 Baso % (Auto) 0.3 % (0.0-2.0) 10/19/18 04:30 Neut # (Auto) 5.5 K/uL (1.8-7.0) 10/19/18 04:30 Lymph # (Auto) 1.5 K/uL (1.0-4.3) 10/19/18 04:30 [place] # (Auto) 0.7 K/uL (0.0-0.8) 10/19/18 04:30 Eos # (Auto) 0.2 K/uL (0.0-0.7) 10/19/18 04:30 Baso # (Auto) 0.0 K/uL (0.0-0.2) 10/19/18 04:30 PT 11.7 Seconds (9.8-13.1) 10/18/18 07:55 INR 1.0 10/18/18 07:55 APTT 28.1 Seconds (25.6-37.1) 10/18/18 07:55 pO2 15 mm/Hg (30-55) L 10/18/18 07:47 VBG pH 7.32 (7.32-7.43) 10/18/18 07:47 VBG pCO2 56 mmHg (40-60) 10/18/18 07:47 VBG HCO3 23.7 mmol/L 10/18/18 07:47 VBG Total CO2 30.6 mmol/L (22-28) H 10/18/18 07:47 VBG O2 Sat (Calc) 23.5 % (40-65) L 10/18/18 07:47 VBG Base Excess 1.4 mmol/L (0.0-2.0) 10/18/18 07:47 VBG Potassium 3.9 mmol/L (3.6-5.2) 10/18/18 07:47 Sodium 137.0 mmol/L (132-148) 10/18/18 07:47 Chloride 100.0 mmol/L (98-107) 10/18/18 07:47 Glucose 129 mg/dL (75-110) H 10/18/18 07:47 Lactate 3.1 mmol/L (0.7-2.1) H 10/18/18 07:47 FiO2 21.0 % 10/18/18 07:47 Sodium 139 mmol/l (132-148) 10/21/18 05:50 Potassium 4.2 MMOL/L (3.6-5.0) 10/21/18 05:50 Chloride 97 mmol/L (98-107) L 10/21/18 05:50 Carbon Dioxide 29 mmol/L (22-30) 10/21/18 05:50 Anion Gap 17 (10-20) 10/21/18 05:50 BUN 18 mg/dl (9-20) 10/21/18 05:50 Creatinine 1.1 mg/dl (0.8-1.5) 10/21/18 05:50 Est GFR ( Amer) > 60 10/21/18 05:50 Est GFR (Non-Af Amer) > 60 10/21/18 05:50 POC Glucose (mg/dL) 129 mg/dL (65-110) H 10/18/18 06:47 Random Glucose 101 mg/dL (75-110) 10/21/18 05:50 Calcium 9.5 mg/dL (8.4-10.2) 10/21/18 05:50 Phosphorus 2.8 mg/dl (2.5-4.5) 10/20/18 13:28 Magnesium 1.8 MG/DL (1.6-2.3) 10/20/18 13:28 Total Bilirubin 0.6 mg/dl (0.2-1.3) 10/21/18 05:50 AST 27 U/L (17-59) 10/21/18 05:50 ALT 23 U/L (21-72) 10/21/18 05:50 Alkaline Phosphatase 54 U/L (38-126) 10/21/18 05:50 Troponin I < 0.0120 ng/mL (0.00-0.120) 10/19/18 00:34 NT-Pro-B Natriuret Pep 31.2 pg/ml (0-900) 10/18/18 08:45 Total Protein 8.3 G/DL (6.3-8.2) H 10/21/18 05:50 Albumin 4.4 g/dL (3.5-5.0) 10/21/18 05:50 Globulin 3.9 gm/dL (2.2-3.9) 10/21/18 05:50 Albumin/Globulin Ratio 1.1 (1.0-2.1) 10/21/18 05:50 Vitamin B12 733 pg/mL (239-931) 10/21/18 08:03 TSH 3rd Generation 3.65 mIU/ML (0.46-4.68) 10/19/18 04:30 PTH Intact Whole [place] 33 pg/mL (14-64) 10/19/18 04:30 Venous Blood Potassium 3.9 mmol/L (3.6-5.2) 10/18/18 07:47 Urine Osmolality 394 mosm/kg (300-1000) 10/18/18 22:30 Ur Random Creatinine 59.4 mg/dL 10/18/18 22:30 Ur Random Sodium 50 meq/L 10/18/18 22:30 Ur Random Potassium 21.1 mmol/L 10/18/18 22:30 Blood Type Cancelled 10/18/18 08:45 Antibody Screen Cancelled 10/18/18 08:45 BBK History Checked Cancelled 10/18/18 08:45 - Hospital Course Hospital Course: 77 year old male with a past medical history significant for CAD s/p RCA stent in March 2017, DMII, HTN, HLD, BPH, hypothyroidism, MVR, OA, SVT and TIA presents to the emergency department for evaluation of witnessed syncopal episode on the morning of 10/18/18. Patient was admitted to evaluate the syncope and acute renal failure. Neurologist Dr. Grossman was consulted. Head CT and Duplex US were unremarkable. [employer] Lead Dr. Baer was consulted. Patients ECG, CXR and serial troponins were negative. ECHO on 10/10/18 shows LVH, EF 70%. Patient had cardiac cath 10/02/18 angiographic findings: non obstructive CAD,m severe endothelial dysfunction with vasospastic disease, ectatic CAD. Left circ 65% stenosis, PDA mid prox 65% stenosis, LAD 65% stenosis. Green [employer] Blender Dr. Sommers and measurer machine Dr. Correia were also consulted. Patient was recommended to have outpatient EGD and colonoscopy. Patients renal function improved and back to baseline. Patients syncopal episode was most likely vasovagal in nature. This morning, patients orthostatic vitals were negative for orthostatic hypotension. Patient denies any chest pain, dyspnea, headache, dizziness or blurry vision. Patient is hemodynamically stable to discharge home (cleared by cardiology) and advised to continue with home medications. Follow up with PMD in 1 week and outpatient government contracts manager. Discharge Exam - Head Exam Head Exam: ATRAUMATIC, NORMAL INSPECTION, NORMOCEPHALIC - Eye Exam Eye Exam: Normal appearance - ENT Exam ENT Exam: Mucous Membranes Moist - Neck Exam Neck exam: Normal Inspection - Respiratory Exam Respiratory Exam: Clear to PA & Lateral, NORMAL BREATHING PATTERN. absent: Wheezes, Respiratory Distress - Cardiovascular Exam Cardiovascular Exam: REGULAR RHYTHM, +S1, +S2 - GI/Abdominal Exam GI & Abdominal Exam: Normal Bowel Sounds, Soft. absent: Tenderness - Extremities Exam Extremities exam: normal inspection - Neurological Exam Neurological exam: Alert, Normal Gait, Oriented x3 - Psychiatric Exam Psychiatric exam: Normal Affect, Normal Mood - Skin Skin Exam: Normal Color Discharge Plan - Follow Up Plan Condition: GUARDED Disposition: HOME/ ROUTINE Instructions: Syncope (Fainting) (DC) Additional Instructions: Please follow up with your primary care doctor within 1 week. Follow up with government contracts manager (Please call to make appointment) Referrals: Oscar Fagan MD [Staff Provider] - Norman Conte MD [Staff Provider] - Irvin Sommers [Staff Provider] -
--- NOTE | 2018-10-22 11:48 | CP.PCM.PN ---
Subjective - Date & Time of Evaluation Date of Evaluation: 10/22/18 Time of Evaluation: 11:48 - Subjective Subjective: pt is seen and examined, follow up consult is dictated #[id number] for d/c home today Objective - Vital Signs/Intake and Output Vital Signs (last 24 hours): Temp Pulse Resp BP Pulse Ox 98.6 F 73 18 142/87 97 10/22/18 09:00 10/22/18 09:31 10/22/18 09:00 10/22/18 09:31 10/22/18 09:00 - Medications Medications: Current Medications Acetaminophen (Tylenol 325mg Tab) 650 mg PO Q6 PRN PRN Reason: Pain, Mild (1-3) Last Admin: 10/19/18 06:36 Dose: 650 mg Amiodarone HCl (Cordarone) 200 mg PO DAILY [facility] Last Admin: 10/22/18 09:30 Dose: 200 mg Amlodipine Besylate (Norvasc) 5 mg PO DAILY [facility] Last Admin: 10/22/18 09:29 Dose: 5 mg Aspirin (Ecotrin) 81 mg PO DAILY [facility] Last Admin: 10/22/18 09:30 Dose: 81 mg Atorvastatin Calcium (Lipitor) 40 mg PO HS [facility] Last Admin: 10/21/18 21:37 Dose: 40 mg Calcitriol (Rocaltrol) 0.5 mcg PO DAILY [facility] Last Admin: 10/22/18 09:28 Dose: 0.5 mcg Cilostazol (Pletal) 100 mg PO BID [facility] Last Admin: 10/22/18 09:31 Dose: 100 mg Clopidogrel Bisulfate (Plavix) 75 mg PO DAILY [facility] Last Admin: 10/22/18 09:28 Dose: 75 mg Doxazosin Mesylate (Cardura) 8 mg PO HS [facility] Famotidine (Pepcid) 40 mg PO DAILY [facility] Last Admin: 10/22/18 09:30 Dose: 40 mg Heparin Sodium (Porcine) (Heparin) 5,000 units SC Q8 [facility]; Protocol Last Admin: 10/18/18 18:00 Dose: 5,000 units Sodium Chloride (Sodium Chloride 0.9%) 1,000 mls @ 100 mls/hr IV .Q10H [facility] Last Admin: 10/21/18 20:15 Dose: Not Given Levothyroxine Sodium (Synthroid) 50 mcg PO DAILY@0630 [facility] Last Admin: 10/22/18 05:52 Dose: 50 mcg Losartan Potassium (Cozaar) 100 mg PO DAILY [facility] Last Admin: 10/22/18 09:31 Dose: 100 mg Metoprolol Tartrate (Lopressor) 50 mg PO Q12 [facility] Last Admin: 10/22/18 09:29 Dose: 50 mg Ranolazine (Ranexa) 1,000 mg PO BID [facility] Last Admin: 10/22/18 09:32 Dose: 1,000 mg - Labs Labs: 10/21/18 05:50 10/21/18 05:50 PT 11.7 Seconds (9.8-13.1) 10/18/18 07:55 INR 1.0 10/18/18 07:55 APTT 28.1 Seconds (25.6-37.1) 10/18/18 07:55
--- NOTE | 2018-10-23 04:31 | PN ---
DATE: 10/22/2018 LOCATION: Room 418, bed 2. REQUESTED BY: Norman Conte MD REASON FOR FOLLOWUP: Acute renal failure and for further evaluation. HISTORY OF PRESENT ILLNESS: Mr. Loo is about a 77-year-old obese male with history of osteoarthritis; coronary artery disease, status post stent placement; hypertension; diabetes; hyperlipidemia; hypothyroidism; mitral valve prolapse; TIA, who was admitted with a syncopal episode and dizziness, hypotension. The patient was started on IV fluids and blood pressure medicine was on hold. His symptoms improved nicely and also his serum creatinine improved, renal function has improved. The patient is out of bed to chair. Denies any headache or dizziness. Denies any chest pain or palpitation. Denies any fever or cough. No abdominal pain. No nausea, vomiting, or diarrhea. PHYSICAL EXAMINATION: VITAL SIGNS: This morning as follows: Blood pressure 142/87, pulse 73, respiratory rate about 18, temperature 98.6. Height is 5 feet 4 inches. Weight is 165 pounds. GENERAL: Mr. Loo is a 77-year-old elderly male, moderately built, moderately nourished, not in distress. HEENT: Pupils normal and reactive to light and accommodation. Conjunctivae pink. Sclerae anicteric. Tongue is moist. Trachea is midline. LUNGS: Symmetric on both sides. Bilateral breath sounds present. Clear to auscultation. CARDIOVASCULAR: [place] at the fifth intercostal space, midclavicular line. S1 and S2 audible. No murmur or gallop. ABDOMEN: Normal in appearance, soft, tympanitic. No guarding. No rigidity. No hepatosplenomegaly. CENTRAL NERVOUS SYSTEM: The patient is alert, awake, oriented x3. Nonfocal neuro examination. Cranial nerves II through XII grossly intact. Sensory and motor system is within normal limits. EXTREMITIES: No cyanosis. No clubbing. No edema. CURRENT MEDICATIONS: Include as follows: Tylenol 650 mg p.o. every 6 hours p.r.n., amiodarone 200 mg p.o. daily, Norvasc 5 mg daily, aspirin 81 mg daily, Lipitor 40 mg p.o. at bedtime, Rocaltrol 0.5 mcg daily, Pletal 100 mg p.o. b.i.d., Plavix 75 mg daily, Cardura 80 mg p.o. at bedtime, Pepcid 40 mg p.o. daily, subcu heparin 5000 every 8 hours, Synthroid 50 mcg p.o. daily, losartan 100 mg p.o. daily, metoprolol 50 mg p.o. every 12 hours, Ranexa 1000 mg p.o. b.i.d. LABORATORY DATA: No new labs for today and as of 10/21/2018: WBC 8.6, hemoglobin 13.8, hematocrit 40.1, and platelets 254. Sodium 139, potassium 4.2, chloride 97, CO2 of 29, BUN 18, creatinine 1.1, glucose 101, and calcium 9.5. Total bili 0.6, AST 27, ALT 23, alkaline phosphatase 54, total protein 8.3, and albumin 4.4. Vitamin B12 level is 733. ASSESSMENT AND PLAN: In summary, Mr. Loo is a 77-year-old elderly male with history of hypertension; diabetes; hyperlipidemia; hyperthyroidism; mitral valve prolapse; transient ischemic attack; coronary artery disease, status post stent placement; and arthritis, was admitted with syncopal episode and hypotension with acute renal failure. 1. Nonoliguric acute renal failure secondary to intravascular volume depletion. 2. Syncopal episode secondary to hypotension. 3. Dehydration secondary to decreased p.o. intake. Continue IV fluids. Encourage p.o. fluids. Renal function improved, back to his baseline. The patient is stable from the renal standpoint for discharge and follow up with primary medical doctor as an outpatient. Thank you for allowing me to participate in your patient's care. Franchesca Correia MD
== END 2018-10-22 11:50 | disposition home or self-care (01) | DRG 684 ==
LOC: H.ER 06:43 → H.ERHOLD 11:04 → H.TEL 16:09
PROVIDERS: ADMIT Internal Medicine; ATTEND Internal Medicine
DX: N17.9 Acute kidney failure, unspecified (principal); I25.10 Atherosclerotic heart disease of native coronary artery without angina pectoris; Z95.5 Presence of coronary angioplasty implant and graft; E11.9 Type 2 diabetes mellitus without complications; E78.5 Hyperlipidemia, unspecified; Z86.73 Personal history of transient ischemic attack (TIA), and cerebral infarction without residual deficits; K29.70 Gastritis, unspecified, without bleeding; M19.90 Unspecified osteoarthritis, unspecified site; E78.00 Pure hypercholesterolemia, unspecified; E03.9 Hypothyroidism, unspecified; I34.1 Nonrheumatic mitral (valve) prolapse; N40.0 Benign prostatic hyperplasia without lower urinary tract symptoms; I12.9 Hypertensive chronic kidney disease with stage 1 through stage 4 chronic kidney disease, or unspecified chronic kidney disease; N18.9 Chronic kidney disease, unspecified; E86.0 Dehydration; Z87.891 Personal history of nicotine dependence; Z95.0 Presence of cardiac pacemaker; E66.9 Obesity, unspecified; Z95.2 Presence of prosthetic heart valve; I95.9 Hypotension, unspecified; Z68.28 Body mass index [BMI] 28.0-28.9, adult; K64.9 Unspecified hemorrhoids